=== PATIENT | female | born 1960 | race Native Hawaiian/Other Pacific Islander ===

== ENCOUNTER 2023-03-04 08:19 | Outpatient (CLI) | payer OTHER, SELFPAY ==
[2023-03-04 19:50] LABS: Chlamydia DNA Amplified* Not Detected (No Detected); GC DNA Amplified* Not Detected (No Detected)
== END 2023-03-04 08:20 | disposition home or self-care (01) ==
PROVIDERS: PCP Family Medicine; Visit Provider Family Medicine
DX: Z11.3 Encounter for screening for infections with a predominantly sexual mode of transmission (principal)
CPT/HCPCS: 80053; 80061; 82306; 86592; 86703; 86803; 87491; 87591

== ENCOUNTER 2023-05-16 13:54 | Outpatient (CLI) | payer OTHER, SELFPAY ==
--- NOTE | 2023-05-16 14:00 | CRLHL7_ITS ---
For Patients: As a result of the Century Cures Act, medical imaging exams and procedure reports are released immediately into your electronic medical record. You may view this report before your referring provider. If you have questions, please contact your health care provider. BILATERAL DIGITAL SCREENING MAMMOGRAM WITH TOMOSYNTHESIS AND COMPUTER-AIDED DETECTION CLINICAL HISTORY: Routine screening exam. COMPARISON: 02/08/2022, 12/20/2020, 10/01/2019. TECHNIQUE: Digital mammogram in CC and MLO projections including computer-aided detection (CAD). BREAST COMPOSITION: There are areas of scattered fibroglandular density. FINDINGS: RIGHT Breast: There is a nodular density within the posterior breast tissue laterally, possibly a normal lymph node. LEFT Breast: No suspicious findings. IMPRESSION: RIGHT breast asymmetry/mass. RECOMMENDATIONS: Additional mammographic views of the RIGHT breast including 3D XCCL and true lateral. RIGHT breast ultrasound may also be required. BI-RADS Category 0: Incomplete: Need Additional Imaging Evaluation and/or Prior Mammograms for Comparison The [facility] will contact the patient for follow-up. A lay language report of this examination will be provided to the patient. Dictated by Sander Hernandez MD @ 05/23/2023 2:03:46 PM yair/Dictated by: Sander Hernandez MD @ 05/23/2023 2:03:00 PM (Electronically Signed)
== END 2023-05-16 13:55 | disposition home or self-care (01) ==
LOC: MAMMO 13:55
PROVIDERS: PCP Family Medicine; Visit Provider Family Medicine
DX: Z12.31 Encounter for screening mammogram for malignant neoplasm of breast (principal)
CPT/HCPCS: 77063; 77067

== ENCOUNTER 2023-05-31 09:24 | Outpatient (CLI) | payer OTHER, SELFPAY ==
--- NOTE | 2023-05-31 09:45 | CRLHL7_ITS ---
For Patients: As a result of the Century Cures Act, medical imaging exams and procedure reports are released immediately into your electronic medical record. You may view this report before your referring provider. If you have questions, please contact your health care provider. DIGITAL DIAGNOSTIC RIGHT MAMMOGRAM USING TOMOSYNTHESIS AND COMPUTER-AIDED DETECTION RIGHT BREAST ULTRASOUND INDICATION: 62-year-old asymptomatic female. Asymmetric density outer RIGHT breast. Follow-up. TECHNIQUE: Unilateral diagnostic RIGHT breast mammogram. An exaggerated CC view laterally, as well as a true ML view was performed. Digital breast tomosynthesis utilized. COMPARISON: 05/16/2023, 02/08/2022. BREAST COMPOSITION: The breasts are almost entirely fatty. FINDINGS: Persistent asymmetry in the outer RIGHT breast between the 9 and 10 o`clock position. This may simply reflect asymmetric breast tissue. Ultrasound is recommended for further evaluation and will be performed subsequently. IMPRESSION: Persistent asymmetric density outer RIGHT breast. ULTRASOUND FINDINGS: Directed RIGHT breast ultrasound with this radiologist present. In the mid outer RIGHT breast 9 o`clock position 12 cm from the nipple is an area of mildly echogenic breast tissue without shadowing. No mass lesion. No architecture distortion. This should reflect the density identified on today`s mammogram and the most recent mammogram as well. Asymmetric breast tissue is most likely. These findings were discussed in detail with the patient. Annual mammography is recommended. BI-RADS Category 2: Benign A lay language report of this examination will be provided to the patient. Dictated by: Preet Hernández MD @05/31/2023 10:50:13 AM jj/Dictated by: Preet Hernández MD @ 05/31/2023 10:49:00 AM (Electronically Signed)
--- NOTE | 2023-05-31 10:15 | CRLHL7_ITS ---
For Patients: As a result of the Cures Act, medical imaging exams and procedure reports are released immediately into your electronic medical record. You may view this report before your referring provider. If you have questions, please contact your health care provider. PLEASE SEE DIGITAL DIAGNOSTIC RIGHT MAMMOGRAM PERFORMED SAME DAY CRL:yair [email or web address]/Dictated by: Preet Hernández MD @ 05/31/2023 10:50:00 AM (Electronically Signed)
== END 2023-05-31 09:25 | disposition home or self-care (01) ==
LOC: MAMMO 09:26
PROVIDERS: PCP Family Medicine; Visit Provider Family Medicine
DX: N63.10 Unspecified lump in the right breast, unspecified quadrant (principal); R92.8 Other abnormal and inconclusive findings on diagnostic imaging of breast
CPT/HCPCS: 76642; 77065; G0279

== ENCOUNTER 2024-03-10 09:43 | Outpatient (CLI) | payer OTHER, SELFPAY | END 2024-03-10 09:44 | disposition home or self-care (01) | PROVIDERS: PCP Family Medicine; Visit Provider Family Medicine | DX: R73.03 Prediabetes (principal); I10 Essential (primary) hypertension; E78.5 Hyperlipidemia, unspecified; Z13.21 Encounter for screening for nutritional disorder | CPT/HCPCS: 80053; 80061; 82043; 82570; 82607 ==

== ENCOUNTER 2024-06-10 10:02 | Outpatient (CLI) | payer OTHER, SELFPAY ==
--- NOTE | 2024-06-10 10:15 | CRLHL7_ITS ---
For Patients: As a result of the Century Cures Act, medical imaging exams and procedure reports are released immediately into your electronic medical record. You may view this report before your referring provider. If you have questions, please contact your health care provider. BILATERAL SCREENING MAMMOGRAM WITH COMPUTER-AIDED DETECTION AND TOMOSYNTHESIS TECHNIQUE: CC and MLO views were obtained. These mammographic images have been obtained using full-field digital technique. These mammographic images were interpreted with the benefit of computer-aided detection. Breast Tomosynthesis was used in this interpretation. COMPARISON FILM: 05/31/23, 05/16/23, 02/08/22. FINDINGS: There are scattered areas of fibroglandular density. IMPRESSION: There is no radiographic evidence for malignancy. ASSESSMENT: BI-RADS Category 1: Negative RECOMMENDATION: Routine screening mammogram in 1 year. A lay language report of this examination will be provided to the patient. Sander Hernandez M.D. Diagnostic Radiologist [email or web address] SP/Dictated by: Sander Hernandez MD @ 06/11/2024 11:21:00 AM (Electronically Signed)
== END 2024-06-10 10:03 | disposition home or self-care (01) ==
LOC: MAMMO 10:05
PROVIDERS: PCP Family Medicine; Visit Provider Family Medicine
DX: Z12.31 Encounter for screening mammogram for malignant neoplasm of breast (principal)
CPT/HCPCS: 77063; 77067

== ENCOUNTER 2025-01-16 10:23 | Emergency (ER) | payer BC, SELFPAY ==
--- OUTSIDE RECORDS SUMMARY | 2025-01-16 10:26 | XMS_ITS | Encounter Summary ---
Author Organization [facility] Address [address] [place] [address] Care Team Providers Care Environmental Health Aide Name Role Phone Germaine Pena MD Primary Care Provider Max Andrews MD Primary Care Provider [phone] Toney Escobar MD Primary Care Provider [phone] Tereza Centeno MD Primary Care Provider Unav [facility] Primary Care Provider + Naa Talavera MD Unavailable [phone] Naa Talavera MD Unavailable [phone] Tonya Acuña PA-C Unavailable [phone] Minerva Rico PA-C Unavailable [phone] Naa Talavera MD Unavailable [phone] Lucian Villegas MD Unavailable [phone] Rhianna Bravo MD Primary Care Provider [phone] System, Provider Not In Primary Care Provider Un available Myke Dolan MD Unavailable [phone] Encounter Details Date Type Department Care Team (Late Contact Info) Description 07/27/2006 [facility] Medical Advice [address] [phone] Germaine Pena MD [address] [place] [address] Social History Tobacco Use Types Packs/Day Years Used Date Smoking Tobacco: Never Alcohol Use Standard Drinks/Week Comments Yes 0 (1 standard drink = 0.6 oz pur e alcohol) occasionally Comments No Sex and Gender Information Value Date Recorded Sex Assigned at Female 09/09/2021 6:11 AM CDT Legal Sex Female 3:25 AM COMMISSIONS 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 Gender Identity Female 09/09/2021 6:11 AM CDT Sexual Orientation Straight 09/09/2021 6: 11 AM CDT Occupation Industry Job Start Date Job End Date home for now Not on file Not on file Not on file documented as of this encounter Plan of Treatment Upcoming Encounters Date Type Department Care Team (Late Contact Info) Description 01/21/2025 12:00 PM CDT Office Visit [address] [phone] Myke Dolan MD [address] [place] [address] documented as of this encounter Visit Diagnoses Not on filedocumented in this encounter Care Teams Environmental Health Aide Relationship Specialty Start Date End Date Germaine Pena MD PCP - General 11/18/03 10/22/12 Max Andrews MD [address] [place] [address] PCP - General Family Practice 10/23/12 02/25/13 [place] [address] [place] [address] PCP - General Family Practice 02/26/13 02/04/14 [place] [address] [place] [address] PCP - General Family Practice 02/05/14 09/25/17 [facility] PCP - General Family Practice 09/26/17 11/21/21 [place] [address] [place] [address] PCP - General Family Medicine 11/22/21 03/27/23 System, Provider Not In PCP - General Clinic 03/28/23 Naa Talavera MD [address] [place] [phone] Urology 02/23/20 Naa Talavera MD [address] [place] [address] [id number] Assigned Surgical Provider 09/02/20 01/24/21 Tonya Acuña PA-C [address] [place], [place] 767615 Assigned Surgical Provider 01/25/21 03/11/21 Minerva Rico PA-C [address] [address] Assigned OBGYN Provider 01/25/21 5 1 Naa Talavera MD [address] [place] [address] Assigned Surgical Provider 03/12/21 09/16/21 Lucian Villegas MD [address] [address] Assigned Surgical Provider 09/17/21 03/29/23 Myke Dolan MD [address] [place] [address] Assigned Surgical Provider 04/06/23 documented as of this encounter
--- OUTSIDE RECORDS SUMMARY | 2025-01-16 10:26 | XMS_ITS | Encounter Summary ---
Author Organization [facility] Address [address] [facility] [place] [address] Care Team Providers Care Food And Beverage Checker Name Role Phone Naa Talavera MD Unavailable [phone] System, Provider Not In Primary Care Provider Un available Myke Dolan MD Unavailable [phone] Encounter Details Date Type Department Care Team (Late st Contact Info) Description 04/03/2023 [facility] Medical Advice [address] [phone] Tonya Clemons, RN Social History Tobacco Use Types Packs/Day Years Used Date Smoking Tobacco: Never Smokeless Tobacco: Never Alcohol Use Standard Drinks/Week Comments Yes 0 (1 standard drink = 0.6 oz pur e alcohol) occasionally PHQ-2 Answer Date Recorded PHQ-2 Score 2 03/09/2021 Comments No Sex and Gender Information Value Date Recorded Sex Assigned at Female 09/09/2021 6:11 AM CDT 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 No / Unsure 03/28/2023 8:00 AM CDT documented as of this encounter Plan of Treatment Upcoming Encounters Date Type Department Care Team (Late st Contact Info) Description 01/21/2025 12:00 PM CDT Office Visit [facility] [address] [place] [phone] [place] [address] [place] [address] [phone] documented as of this encounter Visit Diagnoses Not on filedocumented in this encounter Additional Health Concerns Assessment Noted Time PHQ-9 Depression Total Score: 5 03/09/20 21 8:22 AM CDT documented as of this encounter Care Teams Food And Beverage Checker Relationship Specialty Start Date End Date System, Provider Not In PCP - General Clinic 03/28/23 Naa Talavera MD [address] [place] [address] [address] [place] [address] Urology 02/23/20 [place] [address] [place] [address] Assigned Surgical Provider 04/06/23 documented as of this encounter
--- OUTSIDE RECORDS SUMMARY | 2025-01-16 10:26 | XMS_ITS | Clinical Summary ---
Author Organization [facility] Address [address] [place] [address] Care Team Providers Care Electronic News Gathering Camera Person Name Role Phone Tereza Centeno MD Primary Care Provider [phone] Source Comments You are receiving this document as you are listed as the primary care provider,follow-up provider, or the patient has been referred to you for consultation.This is in compliance with the Medicare and[facility] Hospital[facility] EHR Incentive Program,which states Providers who transition their patient to another setting of careor provider of care or refers their patient to another provider of care shouldprovide summary care record for each transition of care or referral. [employer] Allergies Active Allergy Reactions Criticality Noted Date Comments Dog Epithelium (Canis Lupus Familiaris) Other, see comments 12/30/2020 Molds & Smuts Other, see comments 12/13/2003 Other Other, see comments, Runny Nose 12/13/2003 Medications Notus-3 Fatty Acids 1200 MG 2 Caps two times a day. Active Cetirizine HCl (ZYRTEC) 10 MG CAPS daily as needed. Active cholecalciferol (VITAMIN D) 1000 UNITS capsule Take 1,000 Units by mouth daily. Active losartan/hydroc hlorothiazide (HYZAAR) 100-25 MG tablet Take 1 Tablet by mouth daily. Active metFORMIN (GLUCOPHAGE) 500 MG tablet Take 1 Tablet (500 mg) by mouth daily. 06/01/2023 Active RYBELSUS 3 MG tablet Take 1 Tablet by mouth daily. 05/29/2023 Active scopolamine (TRANSDERM-SCOP ) 1.0mg/3 days patch 1 Patch every 72 hours. 06/03/2023 Active traZODone (DESYREL) 100 MG tablet Take 1 Tablet (100 mg) by mouth once as needed. 02/08/2023 Active cetirizine (ZYRTEC) 10 MG tablet Take 1 Tablet (10 mg) by mouth. Active amLODIPine (NORVASC) 5 MG tablet Take 1 Tablet (5 mg) by mouth daily. 05/16/2024 Active atorvastatin (LIPITOR) 10 MG tablet Take 1 Tablet (10 mg) by mouth daily at bedtime. 06/08/2024 Active gabapentin (NEURONTIN) 100 MG capsule Take 1-3 Capsules (100-300 mg) by mouth at bedtime as needed. 06/09/2024 Active nortriptyline (PAMELOR) 25 MG capsule Take 1 Capsule (25 mg) by mouth daily at bedtime. 06/09/2024 Active atovaquone-prog uanil (MALARONE) 250-100 MG tabletIndicatio ns:Encounter for counseling for travel Take 1 tab by mouth daily. Start 2 days before malarial mosquito exposure in [place], daily while there and continue for 7 days after leaving. Start Malarone on 08-10-2024. 30 Tablet 08/05/2024 Active Active Problems Problem Noted Date Diagnosed Date HTN (hypertension) 02/01/2014 Depression 02/01/2014 Immunizations Immunization Administration Dates Next Due Adult RSV Abrysvo 08/31/2023 DTaP 06/05/2017,06/25/2012 Flu Vac (3+ yrs) 09/21/2013, 2,09/04/2011,2009,08/27/2007,09/02/2006 HepA Adult (19+ yrs) 02/01/2014,06/01/2002 HepA, Unspecified Formulation 06/01/2002 Hepatitis B - Surface Antibo dy Positive 06/24/2001 IPV (Polio) 07/28/2024,06/04/2023,06/01/2002 Influenza (Turin Only) (Flul aval Quad 0.5, 3+ yrs) 08/25/2020,09/04/2019,08/12/2017,2014,08/27/2014 Influenza (Flucelvax), Prese rv Free QIV 08/31/2023 Influenza (Fluzone 0.25, 6-35 mos) 08/14/2018 Influenza [id number] 10/20/2009 Influenza IIV4 (Quadrivalent ) 0.5mL (48386) 09/17/2022,08/21/2021,09/21/2013 Influenza ccIIV3 6 months+ (Flucelvax) 07/28/2024 Influenza, Unspecified Formulation 09/04,08/12/2017,08/29/2015,2013,09/21/2013,08/26/2012,09/04/2011 MCV4 Menveo 2m.+ (two vial) 06/04/2023 MMR 06/04/2023 Moderna Monovalent 12+ 10/18/2021,02/16/2021,09/2021 Pfizer Bivalent 12+ 09/17/2022 Pfizer COVID-19 12+ 08/31/2023 Polio, Unspecified Formulation 06/01/2002 Td 02/11/2002 Tdap 06/04/2023,06/05/2017,06/25/2012 Typhoid (Typhim Vi, IM) 06/04/2023,06/01/2002 YF (Yellow Fever) 06/01/2002 Zoster RZV (Shingrix) 08/21/2021,12/08/2020 Family History Medical History Relation Name Comments Hypertension Brother 4 Relation Name Status Comments Father Mother Alive Brother 1 Alive Brother 2 Alive Brother 3 Alive Brother 4 Daughter 1 Alive Daughter 2 Alive Maternal Grandfather Maternal Grandmother Other Alive spouse Paternal Grandfather Paternal Grandmother Son Alive Social History Tobacco Use Types Packs/Day Years Used Date Smoking Tobacco: Never Smokeless Tobacco: Never Alcohol Use Standard Drinks/Week Comments Not Asked 0 (1 standard drink = 0.6 oz pur e alcohol) Comments No Sex and Gender Information Value Date Recorded Sex Assigned at Not on file Legal Sex Female 6:12 AM CDT Gender Identity Not on file Sexual Orientation Not on file Occupation Industry Job Start Date Job End Date [place] Not on file Not on file Not on file Last Filed Vital Signs Vital Sign Reading Time Taken Comments Blood Pressure 127/88 12/06/2014 8:44 AM INFECTION CONTROL MANAGER Pulse 71 12/06/2014 8:44 AM INFECTION CONTROL MANAGER Temperature 35.9 C (96.6 F) 12/06/2014 8:44 AM INFECTION CONTROL MANAGER Respiratory Rate 16 02/01/2014 9:40 AM CDT Oxygen Saturation - - Inhaled Oxygen Concentration - - Weight 97.1 kg (214 lb) 12/06/2014 8:44 AM INFECTION CONTROL MANAGER Height 164.1 cm (5' 4.6) 12/06/2014 8:44 AM INFECTION CONTROL MANAGER Body Mass Index 36.05 12/06/2014 8:44 AM INFECTION CONTROL MANAGER Plan of Treatment Health Maintenance Due Date Last Done Comments Colon Cancer Screening Plan Due 1962 Hep C Screening (Preventive Services) 1962 Hep B Screening ([employer] Wizard) 1963 HIV Screening (Preventive Services) 1978 Pneumococcal 50+ Yrs (1 of 1 - PCV) 2012 Adult Preventive Visit 12/06/2015 12/06/2014 Cervical Cancer Screening 04/05/2019 04/05/2016 Cholesterol 12/06/2019 12/06/2014 Mammogram 02/08/2023 02/08/2022, 01/11, 12/18/2014, Additional history exists MCV4 (2 - Risk start 2-23 months series) 08/27/2023 06/04/2023 COVID-19 Vaccine ( - 2023- season) 2024 08/31/2023, 09/17/2022, 10/18/2021, Additional history exists DTaP/Tdap/Td (6 - Tdap) 06/04/2033 06/04/20 23, 06/05/2017, 06/05/2017, Additional history exists HepA Completed 02/01/2014, 05/12, 06/01/2002 Zoster/Shingles Completed 08/21/2021, 12/08/2020 RSV Completed 08/31/2023 IPV (Polio) Aged Out 07/28/2024, 05/12, 06/01/2002, Additional history exists No longer eligible based on patient's age to complete this topic Influenza Completed 07/28/2024, 08/12, 09/17/2022, Additional history exists Hib Aged Out No longer eligi ble based on patient's age to complete this topic Meningococcal B Aged Out No longer el igible based on patient's age to complete this topic Pneumococcal Aged Out No longer eligi ble based on patient's age to complete this topic Procedures Procedure Name Priority Date/Time Associated Diagnosis Comments MM MAMMOGRAM SCREENING BILAT W CAD Routine 12/07/2014 9:21 AM INFECTION CONTROL MANAGER LIPID PANEL & DIRECT LDL (IF NEEDED) Routine 12/06/2014 9:03 AM INFECTION CONTROL MANAGER Screening cholesterol level from Last 3 Months or Most Recently Relevant to Health Maintenance Results * MAMMOGRAM SCREENING BILATERAL (12/07/2014 9:21 AM INFECTION CONTROL MANAGER) Anatomical Region Laterality Modality Breast Bilateral Mammography 12/07/2014 9:21 AM INFECTION CONTROL MANAGER Narrative 12/08/2014 2:18 PM INFECTION CONTROL MANAGER MAMMOGRAM SCREENING W/CAD BILAT: 12/07/2014 9:21 AM COMPARISON: 09/24/2013, 09/11/2012 FINDINGS: Bilateral full-field digital screening mammograms performed. The breast tissue is heterogeneously dense, which may lower the sensitivity of mammography There are bilateral reduction mammoplasties. There has been development of a small asymmetry in the outer portion of the right breast. Spot compression view in the craniocaudal projection and a mediolateral view are recommended. The remainder of the breast tissue is unremarkable. Images evaluated with the assistance of CAD. IMPRESSION: ACR BI-RADS Category 0: Incomplete: Need Additional Imaging Evaluation. We will contact this patient directly to arrange for follow-up. Procedure Note Jaun Ashby MD - 12/08/2014 MAMMOGRAM SCREENING W/CAD BILAT: 12/07/2014 9:21 AM COMPARISON: 09/24/2013, 09/11/2012 FINDINGS: Bilateral full-field digital screening mammograms performed. The breast tissue is heterogeneously dense, which may lower the sensitivity of mammography There are bilateral reduction mammoplasties. There has been development of a small asymmetry in the outer portion of the right breast. Spot compression view in the craniocaudal projection and a mediolateral view are recommended. The remainder of the breast tissue is unremarkable. Images evaluated with the assistance of CAD. IMPRESSION: ACR BI-RADS Category 0: Incomplete: Need Additional Imaging Evaluation. We will contact this patient directly to arrange for follow-up. us Tereza Centeno MD RAD MANDI Final Resul t * (ABNORMAL) LIPID PANEL AND DIRECT LDL(IF NEEDED) (12/06/2014 9:03 AM INFECTION CONTROL MANAGER) Hours Fasting 12 hours [facility] Cholesterol 212(H) 0 - 199 mg/dl [facility] Triglyceride 100 0 - 149 mg/dl [facility] HDL 66 >40 mg/dl [facility] LDL, Calc. 126 0 - 129 mg/dl [facility] Non HDL Chol, Calc 146 mg/dl [facility] 12/06/2014 9:03 AM INFECTION CONTROL MANAGER 12/06/2014 9:04 AM INFECTION CONTROL MANAGER Narrative [facility] - 12/06/2014 5:32 PM INFECTION CONTROL MANAGER Performed at [facility], [address] [place] [address] us Tereza Centeno MD LAB_1 Final Resul t [facility] [phone] from Last 3 Months or Most Recently Relevant to Health Maintenance Insurance MEDICA CHOICE Care Teams Electronic News Gathering Camera Person Relationship Specialty Start [place] [address] [place] [address] PCP - General Family Practice 01/27/14
--- OUTSIDE RECORDS SUMMARY | 2025-01-16 10:26 | XMS_ITS | Encounter Summary ---
Author Organization [facility] Address [address] [facility] [place] [address] Care Team Providers Care Floor Clerk Name Role Phone Naa Talavera MD Unavailable [phone] System, Provider Not In Primary Care Provider Un available Myke Dolan MD Unavailable [phone] Encounter Details Date Type Department Care Team (Late st Contact Info) Description 11/20/2023 [facility] Medical Advice [address] [phone] Tonya Clemons, RN Social History Tobacco Use Types Packs/Day Years Used Date Smoking Tobacco: Never Smokeless Tobacco: Never Alcohol Use Standard Drinks/Week Comments Yes 0 (1 standard drink = 0.6 oz pur e alcohol) occasionally PHQ-2 Answer Date Recorded PHQ-2 Score 2 03/09/2021 Adolescent Education Answer Date Record ed Getting School Help Needed Not on file 08/04 Comments No Sex and Gender Information Value Date Recorded Sex Assigned at Female 09/09/2021 6:11 AM CDT Legal Sex Female 3:25 AM CLAIM TAKER Gender Identity Female 09/09/2021 6:11 AM CDT Sexual Orientation Straight 09/09/2021 6: 11 AM CDT Occupation Industry Job Start Date Job End Date home for now Not on file Not on file Not on file documented as of this encounter Plan of Treatment Upcoming Encounters Date Type Department Care Team (Late st Contact Info) Description 01/21/2025 12:00 PM CDT Office Visit [facility] [address] [place] [phone] Myke Dolan MD [address] [place] [address] documented as of this encounter Visit Diagnoses Not on filedocumented in this encounter Additional Health Concerns Assessment Noted Time PHQ-9 Depression Total Score: 5 03/09/20 21 8:22 AM CDT documented as of this encounter Care Teams Floor Clerk Relationship Specialty Start Date End Date System, Provider Not In PCP - General Clinic 03/28/23 Naa Talavera MD [address] [place] [address] [address] [place] [address] Urology 02/23/20 Myke Dolan MD [address] [place] [address] Assigned Surgical Provider 04/06/23 documented as of this encounter
--- OUTSIDE RECORDS SUMMARY | 2025-01-16 10:26 | XMS_ITS | Encounter Summary ---
Author Organization [place] Address [address] [place] [address] Care Team Providers Care Soft Metals Hand Engraver Name Role Phone Germaine Pena MD Primary Care Provider Max Andrews MD Primary Care Provider [phone] Toney Escobar MD Primary Care Provider [phone] Tereza Centeno MD Primary Care Provider Unav [facility] Primary Care Provider + Naa Talavera MD Unavailable [phone] Naa Talavera MD Unavailable [phone] Tonya Acuña PA-C Unavailable [phone] Minerva Rico PA-C Unavailable [phone] Naa Talavera MD Unavailable [phone] Lucian Villegas MD Unavailable [phone] Rhianna Bravo MD Primary Care Provider [phone] System, Provider Not In Primary Care Provider Un available Myke Dolan MD Unavailable [phone] Encounter Details Date Type Department Care Team (Late Contact Info) Description 09/04/2012 MyC Medical Advice [facility] [address] [place] [phone] Irene Pedroza Social History Tobacco Use Types Packs/Day Years Used Date Smoking Tobacco: Never Smokeless Tobacco: Never Alcohol Use Standard Drinks/Week Comments Yes 0 (1 standard drink = 0.6 oz pur e alcohol) occasionally Comments No Sex and Gender Information Value Date Recorded Sex Assigned at Female 09/09/2021 6:11 AM CDT Legal Sex Female 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 Gender Identity Female 09/09/2021 6:11 AM CDT Sexual Orientation Straight 09/09/2021 6: 11 AM CDT Occupation Industry Job Start Date Job End Date home for now Not on file Not on file Not on file documented as of this encounter Plan of Treatment Upcoming Encounters Date Type Department Care Team (Late Contact Info) Description 01/21/2025 12:00 PM CDT Office Visit [address] [phone] Myke Dolan MD [address] [place] [address] documented as of this encounter Visit Diagnoses Not on filedocumented in this encounter Care Teams Soft Metals Hand Engraver Relationship Specialty Start Date End Date Germaine Pena MD PCP - General 11/18/03 10/22/12 Max Andrews MD [address] [place] [address] PCP - General Family Practice 10/23/12 02/25/13 [place] [address] [place] [address] PCP - General Family Practice 02/26/13 02/04/14 [place] [address] [place] [address] PCP - General Family Practice 02/05/14 09/25/17 [facility] PCP - General Family Practice 09/26/17 11/21/21 [place] [address] [place] [address] PCP - General Family Medicine 11/22/21 03/27/23 System, Provider Not In PCP - General Clinic 03/28/23 Naa Talavera MD [address] [place] [address] Urology 02/23/20 Naa Talavera MD [address] [place] [address] Assigned Surgical Provider 09/02/20 01/24/21 Tonya Acuña PA-C [address] [place] [address] Assigned Surgical Provider 01/25/21 03/11/21 Minerva Rico PA-C [address] [address] Assigned OBGYN Provider 01/25/21 Naa Talavera MD [address] [place] [address] Assigned Surgical Provider 03/12/21 09/16/21 Lucian Villegas MD [address] [facility] [address] [place] [address] Assigned Surgical Provider 09/17/21 03/29/23 Myke Dolan MD [address] [place], [place] [address] Assigned Surgical Provider 04/06/23 documented as of this encounter
--- OUTSIDE RECORDS SUMMARY | 2025-01-16 10:26 | XMS_ITS | Encounter Summary ---
Author Organization [place] Address [address] [place] [address] Care Team Providers Care Staff Development Coordinator Name Role Phone Max Andrews MD Primary Care Provider [phone] Toney Escobar MD Primary Care Provider [phone] Tereza Centeno MD Primary Care Provider [facility] Primary Care Provider + Naa Talavera MD Unavailable [phone] Naa Talavera MD Unavailable [phone] Tonya Acuña PA-C Unavailable [phone] Minerva Rico PA-C Unavailable [phone] Naa Talavera MD Unavailable [phone] Lucian Villegas MD Unavailable [phone] Rhianna Bravo MD Primary Care Provider System, Provider Not In Primary Care Provider Un available Myke Dolan MD Unavailable +[phone] Reason for Visit * Reason Onset Date Comments Health Maintenance 01/30/2013 colonoscopy s cheduled Encounter Details Date Type Department Care Team (Late st Contact Info) Description 01/30/2013 Telephone M [address] [phone] Max Andrews MD [address] [place] [address] Health Maintenance (colonoscopy scheduled) Social History Tobacco Use Types Packs/Day Years Used Date Smoking Tobacco: Never Smokeless Tobacco: Never Alcohol Use Standard Drinks/Week Comments Yes 0 (1 standard drink = 0.6 oz pur e alcohol) occasionally Comments No Sex and Gender Information Value Date Recorded Sex Assigned at Female 09/09/2021 6:11 AM CDT 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 [place] [address] Please contact patient to discuss prep and additional instructions. Best phone number to use: [phone] Best time to contact the patient: Anytime during the day Thank you. documented in this encounter Plan of Treatment Upcoming Encounters Date Type Department Care Team (Late Contact Info) Description 01/21/2025 12:00 PM CDT Office Visit [address] [phone] Myke Dolan MD [address] [place] [address] documented as of this encounter Visit Diagnoses Not on filedocumented in this encounter Care Teams Staff Development Coordinator Relationship Specialty Start Date End Date Max Andrews MD [address] [place] [address] PCP - General Family Practice 10/23/12 02/25/13 [place] [address] [place] [address] PCP - General Family Practice 02/26/13 02/04/14 [place] [address] [place] [address] PCP - General Family Practice 02/05/14 09/25/17 [facility] PCP - General Family Practice 09/26/17 11/21/21 [place] [address] [place] [address] PCP - General Family Medicine 11/22/21 03/27/23 System, Provider Not In PCP - General Clinic 03/28/23 Naa Talavera MD [address] [place] [address] Urology 02/23/20 Naa Talavera MD [address] [place] [address] Assigned Surgical Provider 09/02/20 01/24/21 Tonya Acuña PA-C [address] [place] [address] Assigned Surgical Provider 01/25/21 03/11/21 Minerva Rico PA-C [address] [facility] [address] [place] [address] Assigned OBGYN Provider 01/25/21 1 Naa Talavera MD [address] [facility] [address] [place], [place] [address] Assigned Surgical Provider 03/12/21 09/16/21 Lucian Villegas MD [address] [facility] 300 [place], [place] [address] Assigned Surgical Provider 09/17/21 03/29/23 Myke Dolan MD [address] [place], [place] [address] Assigned Surgical Provider 04/06/23 documented as of this encounter
--- OUTSIDE RECORDS SUMMARY | 2025-01-16 10:26 | XMS_ITS | Clinical Summary ---
Author Organization [facility] Address [address] [place] [address] Care Team Providers Care Recreation Engineer Name Role Phone Rhianna Bravo MD Primary Care Provider [phone] Allergies Active Allergy Reactions Criticality Noted Date Comments Cat Dander *Unknown 12/30/2020 Dog Dander *Unknown 12/30/2020 Dust Mites Runny Nose 12/13/2003 Mold *Unknown 12/30/2020 Pollen Extracts *Unknown 12/30/2020 Medications cholecalciferol (VITAMIN D) 1,000 unit tablet Take 1 tablet by mouth once daily. 0 3 Active multivitamin (MVI) tablet Take 1 tablet by mouth once daily. 0 3 Active Phentermine HCl 37.5 mg capsuleIndicatio ns:Morbid exogenous obesity (HC) Take 1 Capsule (37.5 mg) by mouth once daily. 30 Capsule 1 01/16/2022 7:32 PM SUPERVISOR SCRAP PREPARATION 2 Active Additional Information Patient not taking.Reported on 07/04/2023 bacitracin-polym yxin b (POLYSPORIN) ophthalmic ointmentIndicati ons:Red eye Apply 1 Strip to both eyes three times daily. 3.5 g 3 Active Additional Information Patient not taking.Reported on 07/04/2023 ketorolac 0.5 % ophthalmic (ACULAR) solutionIndicati ons:Red eye Place 1 Drop into both eyes four times daily. 3 mL 3 Active Additional Information Patient not taking.Reported on 07/04/2023 amLODIPine (NORVASC) 5 mg tabletIndication s:Essential (primary) hypertension Take 1 Tablet (5 mg) by mouth once daily. 90 Tablet 02/11/2023 2:47 PM CDT 3 Active losartan-hydroch lorothiazide (HYZAAR) 100-25 mg tabletIndication s:Essential (primary) hypertension Take 1 Tablet by mouth once daily. 30 Tablet 02/11/2023 2:47 PM CDT 3 Active traZODone (DESYREL) 100 mg tabletIndication s:Insomnia, idiopathic Take 1 Tablet (100 mg) by mouth at bedtime if needed for Sleep. 90 Tablet 02/11/2023 2:47 PM CDT 3 Active albuterol HFA (PRO-AIR; VENTOLIN; PROVENTIL) 90 mcg/actuation inhalerIndicatio ns:Acute cough Inhale 1-2 Puffs by mouth every 4 hours if needed (cough). 1 Each 3 Active Active Problems Problem Noted Date Diagnosed Date Pap smear for cervical cancer screening 01/10/20 Overview (03/02/2022): 01/2022 NIL/HPV negative. Plan: Pap/HPV due 01/2027 Essential hypertension 12/30/2020 Major depressive disorder, recurrent, moderate 0 12/30/2020 RAVINDER (obstructive sleep apnea) 12/30/2020 History of suburethral sling procedure 9 Morbid obesity 09/18/2019 Body mass index (BMI) 35.0-35.9, adult 9 Low back pain 09/20/2017 Dizziness and giddiness 08/03/2016 Major depression in partial remission 05/16/2009 Leiomyoma of uterus 05/09/2007 Overview (01/02/2021): Problem list name updated by automated process. Provider to review Encounters Date Type Department Care Team Description 11/05/2024 Travel from Last 3 Months Immunizations Immunization Administration Dates Next Due COVID-19 vaccine ([employer]thro[employer] 30mcg/0.3mL) 12YO+ BIVALENT PF, MDV 09/17/2022 Hepatitis A (Adult) 02/01/2014,06/01/2002 Inactivated Polio Vaccine 06/01/2002 Influenza A (H1N1), Inactiva jamal (Age >=3 Years) 10/20/2009 Influenza Virus, Unspecified 09/04/2019, 08/12/2017,08/29/2015,2013,08/20/2014,09/21/2013 Influenza, IIV3 (Age >=3 years) 08/26/20 12,09/04/2011,09/21/2010,2006,09/02/2006 Influenza, IIV4 09/17/2022,08/21/2021,09/21/2013 Influenza, IIV4 (=>6mos) MDV 08/25/2020, 09/04/2019,08/12/2017,2014,08/27/2014 Influenza, IIV4 (Age 6-35 Mos) 08/14/2018 Td, Preservative Free (age > = 7 Years) 02/11/2002 Tdap 06/05/2017,06/26/2012 Tdap, Unspecified 06/05/2017,06/25/2012 Tuberculin Skin Test, Unspecified 04/29/2006 Typhoid (injectable) 06/01/2002 Yellow Fever 06/01/2002 Zoster (Shingrix-RZV, recombinant) 08/21/2021, Family History Medical History Relation Name Comments Good Health Mother Cancer-breast Other Mat Cousin Relation Name Status Comments Father Mother Other Mat Cousin Alive Social History Tobacco Use Types Packs/Day Years Used Date Smoking Tobacco: Never Smokeless Tobacco: Never Alcohol Use Standard Drinks/Week Comments Yes 0 (1 standard drink = 0.6 oz pur e alcohol) occasionally PHQ-2 Answer Date Recorded PHQ-2 TOTAL SCORE 0 01/24/2022 Social Connections Answer Date Recorded Frequency of Communication with Friends and Fami ly 0 07/04/2023 Financial Resource Strain Answer Date R ecorded Difficulty of Paying Living Expenses 3 07/04/2023 Difficulty of Paying Living Expenses Not on file 07/04/2023 Food Insecurity Answer Date Recorded Worried About Running Out of Food in the Last Ye ar 1 07/04/2023 Transportation Needs Answer Date Record ed Lack of Transportation (Medical) 1 07/04/2023 Housing Stability Answer Date Recorded Unable to Pay for Housing in the Last Year 1 07/04/2023 Comments No Sex and Gender Information Value Date Recorded Sex Assigned at Not on file Legal Sex Female 6:06 AM SUPERVISOR SCRAP 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 Gender Identity Not on file Sexual Orientation Not on file Obstetrics History Last Filed Vital Signs Vital Sign Reading Time Taken Comments Blood Pressure 173/83 07/04/2023 9:30 AM CDT Pulse 80 07/04/2023 9:30 AM CDT Temperature 36.5 C (97.7 F) 07/04/2023 9:30 AM CDT Respiratory Rate 20 07/04/2023 9:30 AM CDT Oxygen Saturation 96% 07/04/2023 9:30 AM CDT Inhaled Oxygen Concentration - - Weight 93.9 kg (207 lb) 07/04/2023 9:30 AM CDT Height 162.6 cm (5' 4) 07/04/2023 9:30 AM CDT Body Mass Index 35.53 07/04/2023 9:30 AM CDT Plan of Treatment Upcoming Encounters Date Type Department Care Team (Late st Contact Info) Description 02/22/2025 12:00 PM CDT Office Visit [facility] [address] [place] [phone] [place] [address] [place], [place] [phone] Health Maintenance Due Date Last Done Comments HIV for age 15-65 1977 Pneumococcal series for age 50+ (1 of 1 - PCV) 2012 RSV vaccine for adults or (1 - Risk 60-74 years 1-dose series) 2022 Depression screening for age 12+ 01/24/2023 01/25/20, 11/29/2021 Mammogram for age 45-75 02/08/2023 02/09/20, 12/20/2020, 10/01/2019, Additional history exists BMI (ht and wt on same day) for age 18+ 07/04/2024 07/04/2023, 02/03/2023, 01/24/2022, Additional history exists (IA) Influenza for age 50-64 07/12/202405/2022, 08/21/2021, 08/25/2020, Additional history exists COVID-19 vaccine series ( season) 2024 08/31/2023, 09/17/2022, 10/18/2021, Additional history exists Lipids for age 45-75 01/24/2027 01/24/2022, 06/15/20 21 Pap test for age 21-65 01/24/2027 01/24/2022, 2021 Tetanus booster 06/05/2027 06/05/2017, 05/12, 06/26/2012, Additional history exists Colonoscopy through age 75 06/09/2028 06/09/2018 Tdap Completed 06/05/2017, 05/12, 06/26/2012, Additional history exists Zoster (shingles) series for age 50+ Completed 08/21/2021, 12/08/2020 Hepatitis C screening for ag e 18-79 Completed 01/24/2022 Procedures Procedure Name Priority Date/Time Associated Diagnosis Comments XR MAMMO ANA BILAT SCREEN Routine 02/08/2022 2:42 PM CDT Visit for screening mammogram ANTI HCV Routine 01/24/2022 10:50 AM CDT Need for hepatitis C screening test LIPID PANEL W REFLEX MEASURED LDL Routine 01/24/2022 10:50 AM CDT Routine general medical examination at a health care facility HPV HIGH RISK Routine 01/24/2022 10:00 AM CDT Screening for cervical cancer SCAN-COLONOSCOPY 06/09/2018 12:0 0 AM CDT from Last 3 Months or Most Recently Relevant to Health Maintenance Results * XR MAMMO ANA BILAT SCREEN (02/08/2022 2:42 PM CDT) Anatomical Region Laterality Modality BREASTS, Breast Left, Breast Right Bilateral Mammography Impressions 02/09/2022 3:59 PM CDT There is no radiographic evidence for malignancy. Recommend annual mammograms. MAMMOGRAM ASSESSMENT: ACR 2 Benign PATIENTS: You will also receive a letter with your examination results in an easy to read format. If you have questions about your results, please contact your referring provider. Narrative 02/09/2022 3:59 PM CDT For Patients: As a result of the Century Cures Act, medical imaging exams and procedure reports are released immediately into your electronic medical record. You may view this report before your referring provider. If you have questions, please contact your health care provider. XR MAMMO ANA BILAT SCREEN [[id number]] CLINICAL HISTORY: This is an asymptomatic 61 y.o. patient. INDICATION FOR EXAM: Mammogram Screening. TECHNIQUE: CC & MLO views were obtained. This study was evaluated with the assistance of Computer-Aided Detection. Breast Tomosynthesis was used in interpretation. COMPARISON FILMS: Yes 12/20/20 10/01/19 FINDINGS: The breasts have scattered areas of fibroglandular density. No suspicious masses or microcalcifications. Postoperative changes of bilateral reduction mammoplasty. . Rhianna Bravo MD MAMMO Final Resu lt * (ABNORMAL) LIPID PANEL W REFLEX MEASURED LDL (01/24/2022 10:50 AM CDT) CHOLESTEROL,TOTAL 210(H) 100 - 199 mg/dL 01/24/2022 4:27 PM CDT [facility] TRIGLYCERIDES 65 <150 mg/dL 01/24/2022 4:27 PM CDT [facility] HDL CHOLESTEROL 81 >40 mg/dL 4:27 PM CDT [facility] NON-HDL CHOLESTEROL 129 <145 mg/dl 01/24/2022 4:27 PM CDT [facility] CHOL/HDL RATIO 2.59 <4.50 01/24/2022 4:27 PM CDT [facility] LDL CHOLESTEROL 116 <=130 mg/dL 01/24/2022 4:27 PM CDT [facility] VLDL CHOLESTEROL 13 <=30 mg/dL 01/24/2022 4:27 PM CDT [facility] PROVIDER ORDERED STATUS RANDOM 01/24/2022 4:27 PM CDT [facility] Blood BLOOD SPECIMEN / Unknown Venipuncture / Unknown 01/24/2022 10:50 AM CDT 01/24/2022 10:50 AM CDT Rhianna Bravo MD CHEMISTRY Final Resu lt Performing Organization Address City/[facility]/ZIP Co de Phone Number [facility] [address] [place] [address], [place] * ANTI HCV (01/24/2022 10:50 AM CDT) HEPATITIS C ANTIBODY Non-React mera Non-React mera 01/24/2022 11:01 PM CDT [facility] Comment:Antibodies to HCV no t detected; does not exclude the possibility of exposure to HCV. Blood BLOOD SPECIMEN / Unknown Venipuncture / Unknown 01/24/2022 10:50 AM CDT 01/24/2022 10:50 AM CDT Rhianna Bravo MD SEND OUTS Final Resu lt Performing Organization Address City/[facility]/ZIP Co de Phone Number [facility] [address] [place] [address], [place] * HPV HIGH RISK (01/24/2022 10:00 AM CDT) TYPE 16 Negative Negative 01/30/2022 5:03 AM CDT [facility] TYPE 18 Negative Negative 01/30/2022 5:03 AM CDT [facility] OTHER HIGH RISK TYPES Negative Negative 01/30/2022 5:03 AM CDT [facility] Other (Cervical) Non-Blood / Unknown 01/24/2022 10:00 AM CDT 01/26/2022 8:22 AM CDT Narrative [facility] - 01/30/2022 5:03 AM CDT HPV types 16, 18, 31, 33, 35, 39, 45, 51, 52, 56, 58, 59, 66 and 68 DNA were undetectable or below the pre-set threshold. Methodology: Bam Thu 4800 HPV Test us Rhianna Bravo MD MICROBIOLOGY Final Resu lt [facility] [address] [place] [address], [place] * SCAN-COLONOSCOPY (06/09/2018 12:00 AM CDT) us Scanner OTHER Final Result from Last 3 Months or Most Recently Relevant to Health Maintenance [place] [address] Care Teams Recreation Engineer Relationship Specialty [place] [address] [place] [address] PCP - General Family Practice 01/23/22
--- OUTSIDE RECORDS SUMMARY | 2025-01-16 10:26 | XMS_ITS | Encounter Summary ---
Author Organization [place] Address [address] [facility] [place] [address] Care Team Providers Care Computer Builder Name Role Phone [facility] Primary Care Provider + Naa Talavera MD Unavailable [phone] Tonya Acuña PA-C Unavailable [phone] Minerva Rico PA-C Unavailable [phone] Naa Talavera MD Unavailable Lucian Villegas MD Unavailable Rhianna Bravo MD Primary Care Provider [phone] System, Provider Not In Primary Care Provider Un available Myke Dolan MD Unavailable Reason for Visit * Reason Onset Date Comments Call Back 03/02/2021 11:00 telephone visit today Encounter Details Date Type Department Care Team (Late st Contact Info) Description 03/02/2021 Telephone [facility] [address], [address] [place] [address] Naa Talavera MD [address] [facility] [address] [place] [address] Call Back (11:00 telephone visit today) Social History Tobacco Use Types Packs/Day Years Used Date Smoking Tobacco: Never Smokeless Tobacco: Never Alcohol Use Standard Drinks/Week Comments Yes 0 (1 standard drink = 0.6 oz pur e alcohol) occasionally PHQ-2 Answer Date Recorded PHQ-2 Score 0 09/18/2019 Comments No Sex and Gender Information Value Date Recorded Sex Assigned at Female 09/09/2021 6:11 AM CDT Legal Sex Female 3:25 AM 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 * Telephone Encounter - Karel Mcknight - 03/02/2021 3:00 PM CDT [facility] Phone Message May a detailed message be left on voicemail: yes Reason for Call: Other: Pt calling because she is waiting on a call back for her 11:00 am telephonevisit. She reports that she spoke with a nurse to check in for the appt, and was running late and pt had a meeting, but she is free now and is wondering if she could do her telephone visit today. Please call back to discuss. Action Taken: Message routed to: [facility] uro Travel Screening: Not Applicable documented in this encounter Plan of Treatment Upcoming Encounters Date Type Department Care Team ([facility] Contact Info) Description 01/21/2025 12:00 PM CDT Office Visit [place] [id number] [facility] [place] [phone] Myke Dolan MD [address] [place], [place] [address] documented as of this encounter Visit Diagnoses Not on filedocumented in this encounter Care Teams Computer Builder Relationship Specialty Start Date End Date [facility] PCP - General Family Practice 09/26/17 11/21/21 [place] [address] [place], [place] [phone] PCP - General Family Medicine 11/22/21 03/27/23 System, Provider Not In PCP - General Clinic 03/28/23 Naa Talavera MD [address] [place] [address] Urology 02/23/20 Tonya Acuña PA-C [address] [place] [address]85575 Assigned Surgical Provider 01/25/21 03/11/21 Minerva Rico PA-C [address] [address] Assigned OBGYN Provider 01/25/21 1 Naa Talavera MD [address] [place] [address] Assigned Surgical Provider 03/12/21 09/16/21 Lucian Villegas MD [address] [facility] [address] [place] [address] Assigned Surgical Provider 09/17/21 03/29/23 Myke Dolan MD [address] [place] [address] Assigned Surgical Provider 04/06/23 documented as of this encounter
--- OUTSIDE RECORDS SUMMARY | 2025-01-16 10:26 | XMS_ITS | Encounter Summary ---
Author Organization [place] Address [address] [place] [address] Care Team Providers Care Data Miner Name Role Phone Germaine Pena MD Primary Care Provider Max Andrews MD Primary Care Provider [phone] Toney Escobar MD Primary Care Provider [phone] Tereza Centeno MD Primary Care Provider Unav [facility] Primary Care Provider + Naa Talavera MD Unavailable +[phone] Naa Talavera MD Unavailable +[phone] Tonya Acuña PA-C Unavailable +[phone] Minerva Rico PA-C Unavailable +[phone] Naa Talavera MD Unavailable +[phone] Lucian Villegas MD Unavailable +[phone] Rhianna Bravo MD Primary Care Provider [phone] System, Provider Not In Primary Care Provider Un available Myke Dolan MD Unavailable +[phone] Encounter Details Date Type Department Care Team (Late st Contact Info) Description 02/17/2006 [facility] Medical Advice [facility] [address] [place] [address] Tammy Dave MD XXX [place] [address] Social History Tobacco Use Types Packs/Day Years Used Date Smoking Tobacco: Never Alcohol Use Standard Drinks/Week Comments Yes 0 (1 standard drink = 0.6 oz pur e alcohol) occasionally Comments No Sex and Gender Information Value Date Recorded Sex Assigned at Female 09/09/2021 6:11 AM CDT 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 Gender Identity Female 09/09/2021 6:11 AM CDT Sexual Orientation Straight 09/09/2021 6: 11 AM CDT Occupation Industry Job Start Date Job End Date home for now Not on file Not on file Not on file documented as of this encounter Plan of Treatment Upcoming Encounters Date Type Department Care Team (Late st Contact Info) Description 01/21/2025 12:00 PM CDT Office Visit [address] [address] Myke Dolan MD [address] [place] [address] documented as of this encounter Visit Diagnoses Not on filedocumented in this encounter Care Teams Data Miner Relationship Specialty Start Date End Date Germaine Pena MD PCP - General 11/18/03 10/22/12 Max Andrews MD [address] [place] [address] PCP - General Family Practice 10/23/12 02/25/13 [place] [address] [place] [address] PCP - General Family Practice 02/26/13 02/04/14 [place] [address] [place] [address] PCP - General Family Practice 02/05/14 09/25/17 [facility] PCP - General Family Practice 09/26/17 11/21/21 [place] [address] [place] [address] PCP - General Family Medicine 11/22/21 03/27/23 System, Provider Not In PCP - General Clinic 03/28/23 Naa Talavera MD [address] [place] [address] 056395 Urology 02/23/20 Naa Talavera MD [address] [place] [address] 931045 Assigned Surgical Provider 09/02/20 01/24/21 Tonya Acuña PA-C [address] [place] [address] Assigned Surgical Provider 01/25/21 03/11/21 Minerva Rico PA-C [address] [address] Assigned OBGYN Provider 01/25/21 Naa Talavera MD [address] [place] [address] 519445 Assigned Surgical Provider 03/12/21 09/16/21 Lucian Villegas MD [address] [address] Assigned Surgical Provider 09/17/21 03/29/23 Myke Dolan MD [address] [place], [place] 193322 Assigned Surgical Provider 04/06/23 documented as of this encounter
--- OUTSIDE RECORDS SUMMARY | 2025-01-16 10:27 | XMS_ITS | Encounter Summary ---
Author Organization [place] Address [facility] [place] [address] Care Team Providers Care School Bus Dispatcher Name Role Phone Naa Talavera MD Unavailable [phone] System, Provider Not In Primary Care Provider Un available Myke Dolan MD Unavailable [phone] Encounter Details Date Type Department Care Team (Late st Contact Info) Description 06/23/2024 [place] Medical Advice [facility] 3rd Flr [address] [place] [address] Claire Pedrozaview Social History Tobacco Use Types Packs/Day Years [...] AM CDT 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 Gender Identity Female 09/09/2021 6:11 AM CDT Sexual Orientation Straight 09/09/2021 6: 11 AM CDT Occupation Industry Job Start Date Job End Date home for now Not on file Not on file Not on file documented as of this encounter Plan of Treatment Upcoming Encounters Date Type Department Care Team (Late st Contact Info) Description 01/21/2025 12:00 PM CDT Office Visit [facility] [address] [place] [address] Myke Dolan MD [address] [place] [address] documented as of this encounter Visit Diagnoses Not on filedocumented in this encounter Additional Health Concerns Assessment Noted Time PHQ-9 Depression Total Score: 5 03/09/20 21 8:22 AM CDT documented as of this encounter Care Teams School Bus Dispatcher Relationship Specialty Start Date End Date System, Provider Not In PCP - General Clinic 03/28/23 Naa Talavera MD [address] [place] [address] [address] [place] [address] Urology 02/23/20 Myke Dolan MD [address] [place] [address] Assigned Surgical Provider 04/06/23 documented as of this encounter
--- OUTSIDE RECORDS SUMMARY | 2025-01-16 10:27 | XMS_ITS | Encounter Summary ---
Author Organization [place] Address [address] [place] [address] Care Team Providers Care Charter Pilot Name Role Phone Germaine Pena MD Primary Care Provider Max Andrews MD Primary Care Provider [phone] Toney Escobar MD Primary Care Provider [phone] Tereza Centeno MD Primary Care Provider Unav [facility] Primary Care Provider + Naa Talavera MD Unavailable +[phone] Naa Talavera MD Unavailable +[phone] Tonya Acuña PA-C Unavailable +[phone] Minerva Rico PA-C Unavailable +[phone] Naa Talavera MD Unavailable +[phone] Lucian Villegas MD Unavailable +[phone] Rhianna Bravo MD Primary Care Provider [phone] System, Provider Not In Primary Care Provider Un available Myke Dolan MD Unavailable [phone] Encounter Details Date Type Department Care Team (Late st Contact Info) Description 06/03/2009 MyC Medical Advice Initial Department [facility] Social History Tobacco Use Types Packs/Day Years Used Date Smoking Tobacco: Never Alcohol Use Standard Drinks/Week Comments Yes 0 (1 standard drink = 0.6 oz pur e alcohol) occasionally Comments No Sex and Gender Information Value Date Recorded Sex Assigned at Female 09/09/2021 6:11 AM CDT 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 Gender Identity Female 09/09/2021 6:11 AM CDT Sexual Orientation Straight 09/09/2021 6: 11 AM CDT Occupation Industry Job Start Date Job End Date home for now Not on file Not on file Not on file documented as of this encounter Plan of Treatment Upcoming Encounters Date Type Department Care Team (Late st Contact Info) Description 01/21/2025 12:00 PM CDT Office Visit [address] [address] Myke Dolan MD [address] [place] [address] documented as of this encounter Visit Diagnoses Not on filedocumented in this encounter Care Teams Charter Pilot Relationship Specialty Start Date End Date Germaine Pena MD PCP - General 11/18/03 10/22/12 Max Andrews MD [address] [place] [address] PCP - General Family Practice 10/23/12 02/25/13 [place] [address] [place] [address] PCP - General Family Practice 02/26/13 02/04/14 [place] [address] [place] [address] PCP - General Family Practice 02/05/14 09/25/17 [facility] PCP - General Family Practice 09/26/17 11/21/21 [place] [address] [place] [address] PCP - General Family Medicine 11/22/21 03/27/23 System, Provider Not In PCP - General Clinic 03/28/23 Naa Talavera MD [address] 492965 Urology 02/23/20 Naa Talavera MD [address] [place] [address] 899905 Assigned Surgical Provider 09/02/20 01/24/21 Tonya Acuña PA-C [address] [place], [place] 304155 Assigned Surgical Provider 01/25/21 03/11/21 Minerva Rico PA-C [address] [address] Assigned OBGYN Provider 01/25/21 1 Naa Talavera MD [address] [place] [address] 659685 Assigned Surgical Provider 03/12/21 09/16/21 Lucian Villegas MD [address] [facility] [address] [place] [address] Assigned Surgical Provider 09/17/21 03/29/23 Myke Dolan MD [address] [facility] [place] [address] Assigned Surgical Provider 04/06/23 documented as of this encounter
--- OUTSIDE RECORDS SUMMARY | 2025-01-16 10:27 | XMS_ITS | Encounter Summary ---
Author Organization [place] Address [address] [place] [address] Care Team Providers Care Farmworker Fryer Farm Name Role Phone Toney Escobar MD Primary Care Provider [phone] Tereza Centeno MD Primary Care Provider Unav ailable [facility] Primary Care Provider + Naa Talavera MD Unavailable +[phone] Naa Talavera MD Unavailable +[phone] Tonya Acuña PA-C Unavailable +[phone] Minerva Rico PA-C Unavailable +[phone] Naa Talavera MD Unavailable +[phone] Lucian Villegas MD Unavailable +[phone] Rhianna Bravo MD Primary Care Provider [phone] System, Provider Not In Primary Care Provider Un available Myke Dolan MD Unavailable [phone] Reason for Visit * Reason Onset Date Comments Patient Request 11/13/2013 Encounter Details Date Type Department Care Team (Late st Contact Info) Description 11/13/2013 [facility] [address] [place] [address] [place] [address] [place] [address] Patient Request Social History Tobacco Use Types Packs/Day Years Used Date Smoking Tobacco: Never Smokeless Tobacco: Never Alcohol Use Standard Drinks/Week Comments Yes 0 (1 standard drink = 0.6 oz pur e alcohol) occasionally Comments No Sex and Gender Information Value Date Recorded Sex Assigned at Female 09/09/2021 6:11 AM CDT 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 Gender Identity Female 09/09/2021 6:11 AM CDT Sexual Orientation Straight 09/09/2021 6: 11 AM CDT Occupation Industry Job Start Date Job End Date home for now Not on file Not on file Not on file documented as of this encounter Plan of Treatment Upcoming Encounters Date Type Department Care Team (Late st Contact Info) Description 01/21/2025 12:00 PM CDT Office Visit [address] [address] Myke Dolan MD [address] [place] [address] documented as of this encounter Visit Diagnoses Not on filedocumented in this encounter Care Teams Farmworker [employer]er Farm Relationship Specialty Start [place] [address] [place] [address] PCP - General Family Practice 02/26/13 02/04/14 [place] [address] [place] [address] PCP - General Family Practice 02/05/14 09/25/17 [facility] PCP - General Family Practice 09/26/17 11/21/21 [place] [address] [place] [address] PCP - General Family Medicine 11/22/21 03/27/23 System, Provider Not In PCP - General Clinic 03/28/23 Naa Talavera MD [address] [place] [address] Urology 02/23/20 Naa Talavera MD [address] [place] [address] 009865 Assigned Surgical Provider 09/02/20 01/24/21 Tonya Acuña PA-C 9[address] [place], [place] 765095 Assigned Surgical Provider 01/25/21 03/11/21 Minerva Rico PA-C [address] 214[address] Assigned OBGYN Provider 01/25/21 Naa Talavera MD [address] [place] [address] 038905 Assigned Surgical Provider 03/12/21 09/16/21 Lucian Villegas MD [address] [facility] 300 [place], [place] 700427 Assigned Surgical Provider 09/17/21 03/29/23 Myke Dolan MD [address] [place], [place] 135242 Assigned Surgical Provider 04/06/23 documented as of this encounter
--- OUTSIDE RECORDS SUMMARY | 2025-01-16 10:27 | XMS_ITS | Encounter Summary ---
Author Organization [place] Address [address] [place] [address] Care Team Providers Care Lead Generation Representative Name Role Phone Germaine Pena MD Primary Care Provider Max Andrews MD Primary Care Provider [phone] Toney Escobar MD Primary Care Provider [phone] Tereza Centeno MD Primary Care Provider Unav [facility] Primary Care Provider + Naa Talavera MD Unavailable +[phone] Naa Talavera MD Unavailable +[phone] Tonya Acuña PA-C Unavailable +[phone] Mienrva Rico PA-C Unavailable +[phone] Naa Talavera MD Unavailable +[phone] Lucian Villegas MD Unavailable +[phone] Rhianna Bravo MD Primary Care Provider [phone] System, Provider Not In Primary Care Provider Un available Myke Dolan MD Unavailable [phone] Encounter Details Date Type Department Care Team (Late Contact Info) Description 04/22/2008 MyC Medical Advice [address] [place] [address] Irene Pedroza Social History Tobacco Use Types Packs/Day Years Used Date Smoking Tobacco: Never Alcohol Use Standard Drinks/Week Comments Yes 0 (1 standard drink = 0.6 oz pur e alcohol) occasionally Comments No Sex and Gender Information Value Date Recorded Sex Assigned at Female 09/09/2021 6:11 AM CDT 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 Gender Identity Female 09/09/2021 6:11 AM CDT Sexual Orientation Straight 09/09/2021 6: 11 AM CDT Occupation Industry Job Start Date Job End Date home for now Not on file Not on file Not on file documented as of this encounter Plan of Treatment Upcoming Encounters Date Type Department Care Team (Late Contact Info) Description 01/21/2025 12:00 PM CDT Office Visit [address] [address] Myke Dolan MD [address] [place] [address] documented as of this encounter Visit Diagnoses Not on filedocumented in this encounter Care Teams Lead Generation Representative Relationship Specialty Start Date End Date Germaine Pena MD PCP - General 11/18/03 10/22/12 Max Andrews MD [address] [place] [address] PCP - General Family Practice 10/23/12 02/25/13 [place] [address] [place] [address] PCP - General Family Practice 02/26/13 02/04/14 [place] [address] [place] [address] PCP - General Family Practice 02/05/14 09/25/17 [facility] PCP - General Family Practice 09/26/17 11/21/21 [place] [address] [address] [place], [place] [address] PCP - General Family Medicine 11/22/21 03/27/23 System, Provider Not In PCP - General Clinic 03/28/23 Naa Talavera MD [address] [place] [address] Urology 02/23/20 Naa Talavera MD [address] [place] [address] Assigned Surgical Provider 09/02/20 01/24/21 Tonya Acuña PA-C 909 [place] [address] Assigned Surgical Provider 01/25/21 03/11/21 Minerva Rico PA-C [address] [address] Assigned OBGYN Provider 01/25/21 Naa Talavera MD [address] [place] [address] Assigned Surgical Provider 03/12/21 09/16/21 Lucian Villegas MD [address] [facility] 300 [place] [address] Assigned Surgical Provider 09/17/21 03/29/23 Myke Dolan MD [address] [place] [address] Assigned Surgical Provider 04/06/23 documented as of this encounter
--- OUTSIDE RECORDS SUMMARY | 2025-01-16 10:27 | XMS_ITS | Encounter Summary ---
Author Organization [place] Address [address] [place] [address] Care Team Providers Care Employment Instructional Associate Name Role Phone Germaine Pena MD Primary Care Provider Max Andrews MD Primary Care Provider [phone] Toney Escobar MD Primary Care Provider [phone] Tereza Centeno MD Primary Care Provider Unav [facility] Primary Care Provider + Naa Talavera MD Unavailable [phone] Naa Talavera MD Unavailable +[phone] Tonya Acuña PA-C Unavailable +[phone] Minerva Rico PA-C Unavailable +[phone] Naa Talavera MD Unavailable +[phone] Lucian Villegas MD Unavailable +[phone] Rhianna Bravo MD Primary Care Provider [phone] System, Provider Not In Primary Care Provider Un available Myke Dolan MD Unavailable +[phone] Encounter Details Date Type Department Care Team (Late Contact Info) Description 05/30/2009 My[facility] Medical Advice [address] [address] Germaine Pena MD [address] [place] [address] Social History Tobacco Use Types Packs/Day Years Used Date Smoking Tobacco: Never Alcohol Use Standard Drinks/Week Comments Yes 0 (1 standard drink = 0.6 oz pur e alcohol) occasionally Comments No Sex and Gender Information Value Date Recorded Sex Assigned at Female 09/09/2021 6:11 AM CDT 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 Gender Identity Female 09/09/2021 6:11 AM CDT Sexual Orientation Straight 09/09/2021 6: 11 AM CDT Occupation Industry Job Start Date Job End Date home for now Not on file Not on file Not on file documented as of this encounter Plan of Treatment Upcoming Encounters Date Type Department Care Team (Late st Contact Info) Description 01/21/2025 12:00 PM CDT Office Visit [address] [address] Myke Dolan MD [address] [place] [address] documented as of this encounter Visit Diagnoses Not on filedocumented in this encounter Care Teams Employment Instructional Associate Relationship Specialty Start Date End Date Germaine Pena MD PCP - General 11/18/03 10/22/12 Max Andrews MD [address] [place] [address] PCP - General Family Practice 10/23/12 02/25/13 [place] [address] [place] [address] PCP - General Family Practice 02/26/13 02/04/14 [place] [address] [place] [address] PCP - General Family Practice 02/05/14 09/25/17 [facility] PCP - General Family Practice 09/26/17 11/21/21 [place] [address] [place] [address] PCP - General Family Medicine 11/22/21 03/27/23 System, Provider Not In PCP - General Clinic 03/28/23 Naa Talavera MD [address] [place] [address] [id number] Urology 02/23/20 Naa Talavera MD [address] [place] [address] 216635 Assigned Surgical Provider 09/02/20 01/24/21 Tonya Acuña PA-C 9 [place], [place] 005485 Assigned Surgical Provider 01/25/21 03/11/21 Minerva Rico PA-C [address] 771265 Assigned OBGYN Provider 01/25/21 5 1 Naa Talavera MD [address] [place] [address]1005 Assigned Surgical Provider 03/12/21 09/16/21 Lucian Villegas MD [address] [address] Assigned Surgical Provider 09/17/21 03/29/23 Myke Dolan MD [address]01 [place] [address] Assigned Surgical Provider 04/06/23 documented as of this encounter
--- OUTSIDE RECORDS SUMMARY | 2025-01-16 10:27 | XMS_ITS | Encounter Summary ---
Author Organization [place] Address [address] [place] [address] Care Team Providers Care Paper Bag Machine Operator Name Role Phone Germaine Pena MD Primary Care Provider Max Andrews MD Primary Care Provider [phone] Toney Escobar MD Primary Care Provider [phone] Tereza Centeno MD Primary Care Provider Unav [facility] Primary Care Provider + Naa Talavera MD Unavailable +[phone] Naa Talavera MD Unavailable +[phone] Tonya Acuña PA-C Unavailable +[phone] Minerva Rico PA-C Unavailable +[phone] Naa Talavera MD Unavailable +[phone] Lucian Villegas MD Unavailable +[phone] Rhianna Bravo MD Primary Care Provider [phone] System, Provider Not In Primary Care Provider Un available Myke Dolan MD Unavailable [phone] Encounter Details Date Type Department Care Team (Late Contact Info) Description 04/20/2008 My[facility] Medical Advice [address] [address] Germaine Pena MD [address] [place] [address] Social History Tobacco Use Types Packs/Day Years Used Date Smoking Tobacco: Never Alcohol Use Standard Drinks/Week Comments Yes 0 (1 standard drink = 0.6 oz pur e alcohol) occasionally Comments No Sex and Gender Information Value Date Recorded Sex Assigned at Female 09/09/2021 6:11 AM CDT 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 Gender Identity Female 09/09/2021 6:11 AM CDT Sexual Orientation Straight 09/09/2021 6: 11 AM CDT Occupation Industry Job Start Date Job End Date home for now Not on file Not on file Not on file documented as of this encounter Plan of Treatment Upcoming Encounters Date Type Department Care Team (Late Contact Info) Description 01/21/2025 12:00 PM CDT Office Visit [address] [address] Myke Dolan MD [address] [place] [address] documented as of this encounter Visit Diagnoses Not on filedocumented in this encounter Care Teams Paper Bag Machine Operator Relationship Specialty Start Date End Date Germaine Pena MD PCP - General 11/18/03 10/22/12 Max Andrews MD [address] [place] [address] PCP - General Family Practice 10/23/12 02/25/13 [place] [address] [place] [address] PCP - General Family Practice 02/26/13 02/04/14 [place] [address] [place] [address] PCP - General Family Practice 02/05/14 09/25/17 [facility] PCP - General Family Practice 09/26/17 11/21/21 [place] [address] [place] [address] PCP - General Family Medicine 11/22/21 03/27/23 System, Provider Not In PCP - General Clinic 03/28/23 Naa Talavera MD [address] [place] [address] 94228455 Urology 02/23/20 Naa Talavera MD [address] [place] [address] 719365 Assigned Surgical Provider 09/02/20 01/24/21 Tonya Acuña PA-C 9 [place], [place] 257545 Assigned Surgical Provider 01/25/21 03/11/21 Minerva Rico PA-C [address] 819445 Assigned OBGYN Provider 01/25/21 5 1 Naa Talavera MD [address] [place] [address] 700915 Assigned Surgical Provider 03/12/21 09/16/21 Lucian Villegas MD [address] [address] Assigned Surgical Provider 09/17/21 03/29/23 Myke Dolan MD 6401 [place] [address] Assigned Surgical Provider 04/06/23 documented as of this encounter
--- OUTSIDE RECORDS SUMMARY | 2025-01-16 10:27 | XMS_ITS | Encounter Summary ---
Author Organization [facility] Address [address] [place] [address] Care Team Providers Care Cpa Tax Name Role Phone Naa Talavera MD Unavailable [phone] System, Provider Not In Primary Care Provider Un available Myke Dolan MD Unavailable [phone] Encounter Details Date Type Department Care Team (Latest Contact Info) Description 01/15/2025 Travel Social History Tobacco Use Types Packs/Day Years Used Date Smoking Tobacco: Never Passive Smoke Exposure: Never Smokeless Tobacco: Never Alcohol Use Standard Drinks/Week Comments Yes 0 (1 standard drink = 0.6 oz pur e alcohol) occasionally PHQ-2 Answer Date Recorded PHQ-2 Score 2 03/09/2021 Adolescent Education Answer Date Record ed Getting School Help Needed Not on file 08/04 Food Insecurity Answer Date Recorded Within the past 12 months, d id you worry that your food would run out before you got money to buy more? No 11/07/2024 Within the past 12 months, d id the food you bought just not last and you didn t have money to get more? No 11/07/2024 Housing Stability Answer Date Recorded Do you have housing? (Housin g is defined as stable permanent housing and does not include staying ouside in a car, in a tent, in an abandoned building, in an overnight care home, or couch-surfing.) Yes 11/07/2024 Are you worried about losing your housing? No 11/07/2024 Financial Resource Strain Answer Date R ecorded Within the past 12 months, h ave you or your family members you live with been unable to get utilities (heat, electricity) when it was really needed? No 11/07/2024 Transportation Needs Answer Date Record ed Within the past 12 months, h as lack of transportation kept you from medical appointments, getting your medicines, non-medical meetings or appointments, work, or from getting things that you need? No 11/07/2024 Interpersonal Safety Answer Date Record ed Do you feel physically and e motionally safe where you currently live? Yes 11/05/2024 Within the past 12 months, h ave you been hit, slapped, kicked or otherwise physically hurt by someone? No 11/05/2024 Within the past 12 months, h ave you been humiliated or emotionally abused in other ways by your partner or ex-partner? 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 Gender Identity Female 09/09/2021 6:11 AM CDT Sexual Orientation Straight 09/09/2021 6: 11 AM CDT Occupation Industry Job Start Date Job End Date home for now Not on file Not on file Not on file documented as of this encounter Plan of Treatment Upcoming Encounters Date Type Department Care Team (Late st Contact Info) Description 01/21/2025 12:00 PM CDT Office Visit [address] [phone] Myke Dolan MD [address] [place] [phone] documented as of this encounter Visit Diagnoses Not on filedocumented in this encounter Additional Health Concerns Assessment Noted Time PHQ-9 Depression Total Score: 5 03/09/20 21 8:22 AM CDT documented as of this encounter Care Teams Cpa Tax Relationship Specialty Start Date End Date System, Provider Not In PCP - General Clinic 03/28/23 Naa Talavera MD [address] [facility] [address] [place] [address] Urology 02/23/20 Myke Dolan MD [address] [place], [place] [id number] Assigned Surgical Provider 04/06/23 documented as of this encounter
--- OUTSIDE RECORDS SUMMARY | 2025-01-16 10:27 | XMS_ITS | Clinical Summary ---
Author Organization [place] Address [facility] [place] [address] Care Team Providers Care Avid Editor Name Role Phone Naa Talavera MD Unavailable [phone] System, Provider Not In Primary Care Provider Un available Myke Dolan MD Unavailable Allergies Active Allergy Reactions Criticality Noted Date Comments Animal Dander 12/13/2003 Dust Mites 12/13/2003 Mold 12/13/2003 Medications amLODIPine (NORVASC) 5 MG tablet Take 5 mg by mouth daily 04/11/20 20 Active cetirizine (ZYRTEC) 10 MG tablet Take 10 mg by mouth daily Active traZODone (DESYREL) 100 MG tablet Take 100 mg by mouth at bedtime. 11/29/19 22 Active atorvastatin (LIPITOR) 10 MG tablet Take 10 mg by mouth every evening. Active metFORMIN (GLUCOPHAGE) 500 MG tablet Take 500 mg by mouth at bedtime. Active acetaminophen (TYLENOL) 500 MG tablet Take 1,000 mg by mouth daily as needed for pain. Active HYDROmorphone (DILAUDID) 2 MG tabletIndications :Acute cholecystitis Take 1 tablet (2 mg) by mouth every 4 hours as needed for moderate pain. 12 tablet 11/07/20 24 Active senna-docusate (SENOKOT-S/NATTY LACE) 8.6-50 MG tabletIndications :Acute cholecystitis Take 1-2 tablets by mouth 2 times daily as needed for constipation. 100 tablet 11/07/20 24 Active losartan-hydrochl orothiazide (HYZAAR) 100-25 MG tabletIndications :HTN, goal below 140/90 Take 1 tablet by mouth daily. 11/02/20 24 Active methylPREDNISolon e (MEDROL DOSEPAK) 4 MG tablet therapy packIndications:R etro-orbital pain of left eye,Temporal pain Follow package instructions 21 tablet 01/16/20 25 Active Active Problems Problem Noted Date Diagnosed Date Acute cholecystitis 11/05/2024 History of suburethral sling procedure 9 Myalgia of pelvic floor 09/30/2019 Pelvic floor dysfunction 09/30/2019 Obesity (BMI 35.0-39.9) with comorbidity 019 SBO (small bowel obstruction) 04/24/2013 HTN, goal below 140/90 09/03/2011 CARDIOVASCULAR SCREENING; LDL GOAL LESS THAN 100 12/21/2009 DEPRESSION 05/16/2009 Attention deficit disorder 05/19/2007 Overview (08/11/2015): Problem list name updated by automated process. Provider to review Leiomyoma of uterus 05/09/2007 Overview (08/11/2015): Problem list name updated by automated process. Provider to review Essential hypertension 11/23/2004 Overview (08/11/2015): Problem list name updated by automated process. Provider to review Abnormal glucose 11/23/2004 Overview (08/11/2015): impaired glucose tolerance Problem list name updated by automated process. Provider to review Obesity 03/08/2004 Overview (08/11/2015): BMI Problem list name updated by automated process. Provider to review Increased life stressors 03/08/2004 Dyspnea and respiratory abnormality 03/08/2004 Overview (08/11/2015): not clear apnea per her Pulmonary evaluation Problem list name updated by automated process. Provider to review Allergic rhinitis 11/18/2003 Overview (08/11/2015): runny nose Problem list name updated by automated process. Provider to review Iron deficiency anemia 11/18/2003 Overview (08/11/2015): Dr. Noel Problem list name updated by automated process. Provider to review Resolved Problems Problem Noted Date Diagnosed Date Resolved Date Mixed stress and urge urinary incontinence 09/30/2019 02/17/2020 Shoulder pain 11/02/2013 11/30/2013 Hip pain 09/24/2011 10/30/2013 Excessive or frequent menstruation 04/01/2007 09/01/2007 Encounters Date Type Department Care Team Description 01/15/2025 4:00 PM PLATEMAKER Office Visit [facility] [address] [address] Israel Patel, KELLEN Retro-orbital pain of left eye (Primary Dx); Temporal pain 01/15/2025 Travel 11/10/2024 MyC Medical Advice Initial Department [facility] Post-Op - General Surgery 11/10/2024 [facility] Medical Advice Initial Department [facility] 11/09/2024 4:35 PM PLATEMAKER Lab [facility] [address] [place] [address] S/P laparoscopic cholecystectomy; Elevated lipase 11/09/2024 Travel 11/09/2024 Telephone [facility] [place] [address] [place] [phone] Jair Vieira MD Post-Op - General Surgery (S/p lap patricia 11/06/24) 11/06/2024 8:40 AM PLATEMAKER - 11/06/2024 10:25 AM PLATEMAKER Surgery [facility] [address] [place] [address] Jair Vieira MD CHOLECYSTECTOMY, ROBOT-ASSISTED, LAPAROSCOPIC, USING DA OTIS XI, LYSIS OF ADHESIONS 11/06/2024 8:39 AM PLATEMAKER Anesthesia Event [facility] [address] [place] [address] Jair Ragsdale MD 11/06/2024 Travel 11/05/2024 4:43 PM PLATEMAKER - 11/07/2024 1:00 PM PLATEMAKER Emergency [facility] [address] [place] [address] Daniel Paez MD Kalinoski-Dubose, Michael T, MD Christie, Robert, MD HTN, goal below 140/90 (Primary Dx); Acute cholecystitis Discharge Disposition: Home or Self Care 11/05/2024 Travel 10/23/2024 3:55 PM PLATEMAKER Office Visit [facility] [address] [phone] Israel Patel, PAYueC Frontal sinus pain (Primary Dx); Pain of maxillary sinus; Congestion of paranasal sinus 10/23/2024 Travel from Last 3 Months Immunizations Name Administration Dates Next Due DTaP, Unspecified 06/05/2017,06/25/2012 Flu, Unspecified 09/04/2019, 7,08/29/2015,2013,08/20/2014 [id number] Novel Flu 10/20/2009 Hepatitis A (ADULT 19+) 02/01/2014,06/01/2002 Influenza (IIV3) PF 09/21/2013, 2,09/04/2011,2009,08/27/2007,09/02/2006 Influenza Vaccine >6 months,quad, PF 09/21/2013 Influenza Vaccine IM Ages 6- 35 Months 4 Valent (PF) 08/14/2018 Mantoux Tuberculin Skin Test 04/29/2006 Poliovirus, inactivated (IPV) 06/01/2002 TD,PF 7+ (Tenivac) 02/11/2002 TDAP Vaccine (Adacel) 06/26/2012 Typhoid IM 06/01/2002 Yellow Fever 06/01/2002 Family History Medical History Relation Comments Hypertension Brother 2 Family History Negative No family hx of Relation Status Comments Brother 1 Alive 3 Half-brothers Brother 2 Daughter 1 Alive Daughter 2 Alive Father Mother Alive Son Alive Social History Tobacco Use Types Packs/Day Years Used Date Smoking Tobacco: Never Passive Smoke Exposure: Never Smokeless Tobacco: Never Tobacco Cessation:Counseling Given: Not Answered Alcohol Use Standard Drinks/Week Comments Yes 0 [...] Answer Date Recorded Do you have housing? (Harpal g is defined as stable permanent housing and does not include staying ouside in a car, in a tent, in an abandoned building, in an overnight chcf, or couch-surfing.) Yes 11/07/2024 Are you worried [...] AM CDT Legal Sex Female 3:25 AM PLATEMAKER Gender Identity Female 09/09/2021 6:11 AM CDT Sexual Orientation Straight 09/09/2021 6: 11 AM CDT Occupation Industry Job Start Date Job End Date home for now Not on file Not on file Not on file Last Filed Vital Signs Vital Sign Reading Time Taken Comments Blood Pressure 142/92 01/15/2025 4:04 PM PLATEMAKER Pulse 83 01/15/2025 4:04 PM PLATEMAKER Temperature 36.1 C (97 F) 01/15/2025 4:04 PM PLATEMAKER Respiratory Rate 18 01/15/2025 4:04 PM PLATEMAKER Oxygen Saturation 98% 01/15/2025 4:04 PM PLATEMAKER Inhaled Oxygen Concentration - - Weight 89.9 kg (198 lb 3.2 oz) 01/15/2025 4:04 P M PLATEMAKER Height 162.6 cm (5' 4) 11/05/2024 12:03 PM PLATEMAKER Body Mass Index 34.02 11/05/2024 12:03 PM PLATEMAKER Plan of Treatment Upcoming Encounters Date Type Department Care Team (Late st Contact Info) Description 01/21/2025 12:00 PM CDT Office Visit [address] [phone] Myke Dolan MD [address] [place] [id number] Health Maintenance Due Date Last Done Comments ADVANCE CARE PLANNING 1960 ANNUAL REVIEW OF HM ORDERS [address] CT COLONOGRAPHY 1962 FIT 1962 FLEX SIG 1962 sDNA (Cologuard) 1962 HIV SCREENING 1977 Pneumococcal Vaccine: 50+ Years (1 of 1 - PCV) 2012 MICROALBUMIN 04/14/2014 04/14/2013, 03/15/2011 LIPID 09/21/2018 09/21/2013, 11/0 11/2011, 09/04/2011, Additional history exists PHQ-9 09/08/2021 03/09/2021, 07/2 12/2012, 12/24/2012, Additional history exists YEARLY PREVENTIVE VISIT 01/24/2023 01/25/20 22, 10/01/2019, 09/21/2013, Additional history exists MAMMO SCREENING 02/08/2023 02/08/2022, 03/3 11/2021, 12/20/2020, Additional history exists COVID-19 Vaccine ( season) 2024 08/31/2023, 09/17/2022, 10/18/2021, Additional history exists PAP 01/24/2025 01/24/2022, 09/12, 10/01/2019, Additional history exists BMP 11/09/2025 11/09/2024, 10/12, 11/06/2024, Additional history exists GLUCOSE 11/09/2027 11/09/2024, 10/12, 11/06/2024, Additional history exists COLONOSCOPY 06/09/2028 06/09/2018, 03/12/2013 COLORECTAL CANCER SCREENING 06/09/2028 DTAP/TDAP/TD IMMUNIZATION (5 - Td or Tdap) 06/04/2033 06/04/2023, 06/05/2017, 06/05/2017, Additional history exists RSV VACCINE (1 - 1-dose 75+ series) 2037 DEPRESSION ACTION PLAN Completed 3, 09/04/2012, 09/04/2011 ZOSTER IMMUNIZATION Completed 08/21/2021, HEPATITIS C SCREENING Completed 01/24/2022 MENINGITIS IMMUNIZATION Aged Out 06/04/2023 No l onger eligible based on patient's age to complete this topic INFLUENZA VACCINE Completed 07/28/2024, , 09/17/2022, Additional history exists HPV IMMUNIZATION Aged Out No longer e ligible based on patient's age to complete this topic Medical Devices Implanted Type Area Transition Rn Device Identifier Shelf Expiration Date Model / Serial / Lot Mesh Composite Parietene Ds [id number] - [id number] Implanted:Qty: 1 on 12/08/2021 by Lucian Villegas MD at [facility] Mesh N/A: Abdomen COVIDIEN 12/11/2023 [id number] / / [id number] Procedures Procedure Name Priority Date/Time Associated Diagnosis Comments CBC WITH PLATELETS & DIFFERENTIAL STAT 01/15/2025 4:28 PM PLATEMAKER Retro-orbital pain of left eye Temporal pain CBC WITH PLATELETS AND DIFFERENTIAL STAT 01/15/2025 4:28 PM PLATEMAKER Retro-orbital pain of left eye Temporal pain CRP INFLAMMATION STAT 01/15/2025 4:28 PM PLATEMAKER Retro-orbital pain of left eye Temporal pain ERYTHROCYTE SEDIMENTATION RATE AUTO STAT 01/15/2025 4:28 PM PLATEMAKER Retro-orbital pain of left eye Temporal pain LIPASE Routine 11/09/2024 4:39 PM PLATEMAKER S/P laparoscopic cholecystectomy Elevated lipase COMPREHENSIVE METABOLIC PANEL Routine 11/09/2024 4:39 PM PLATEMAKER S/P laparoscopic cholecystectomy Elevated lipase BILIRUBIN DIRECT Routine 11/07/2024 5:16 AM PLATEMAKER LIPASE Routine 11/07/2024 5:16 AM PLATEMAKER COMPREHENSIVE METABOLIC PANEL Routine 11/07/2024 5:16 AM PLATEMAKER CBC WITH PLATELETS Routine 11/07/2024 5: 16 AM PLATEMAKER SURGICAL PATHOLOGY EXAM Routine 11/06/2024 9:41 AM PLATEMAKER ANE AIRWAY ETT PERFORMABLE Routine 11/06/2024 8:52 AM PLATEMAKER CHOLECYSTECTOMY, ROBOT-ASSISTED, LAPAROSCOPIC, USING DA OTIS XI 11/06/2024 8:45 AM PLATEMAKER Acute cholecystitis COMPREHENSIVE METABOLIC PANEL Routine 11/06/2024 5:49 AM PLATEMAKER CBC WITH PLATELETS Routine 11/06/2024 5: 49 AM PLATEMAKER US ABDOMEN LIMITED STAT 11/05/2024 7: [address] ABDOMEN PELVIS W CONTRAST STAT 11/05/2024 5:54 PM PLATEMAKER ROUTINE UA WITH MICROSCOPIC REFLEX TO CULTURE STAT 11/05/2024 12:34 PM PLATEMAKER HCG QUALITATIVE URINE STAT 11/05/2024 12:34 PM PLATEMAKER CBC WITH PLATELETS & DIFFERENTIAL STAT 11/05/2024 12:15 PM PLATEMAKER HEMOGLOBIN A1C Add-On 11/05/2024 12:15 PM PLATEMAKER LIPASE Add-On 11/05/2024 12:15 PM PLATEMAKER EXTRA RED TOP TUBE STAT 11/05/2024 12 :15 PM PLATEMAKER EXTRA BLUE TOP TUBE STAT 11/05/2024 1 2:15 PM PLATEMAKER CBC WITH PLATELETS AND DIFFERENTIAL STAT 11/05/2024 12:15 PM PLATEMAKER EXTRA TUBE STAT 11/05/2024 12:15 PM PLATEMAKER COMPREHENSIVE METABOLIC PANEL STAT 11/05/2024 12:15 PM PLATEMAKER CRP INFLAMMATION STAT 10/23/2024 5:02 PM PLATEMAKER Frontal sinus pain ERYTHROCYTE SEDIMENTATION RATE AUTO STAT 10/23/2024 5:02 PM PLATEMAKER Frontal sinus pain MAMMOGRAM - HIM SCAN Routine 08/20/2018 LIPID REFLEX TO DIRECT LDL PANEL Routine 09/21/2013 9:57 AM PLATEMAKER Routine general medical examination at a health care facility PAP IMAGED THIN LAYER SCREEN Routine 09/21/2013 12:00 AM PLATEMAKER Routine general medical examination at a health care facility ALBUMIN RANDOM URINE QUANTITATIVE Routine 04/14/2013 10:30 AM CDT Hypertension COLONOSCOPY Routine 03/12/2013 9:29 AM CDT from Last 3 Months or Most Recently Relevant to Health Maintenance Results * (ABNORMAL) CBC with platelets and differential (01/15/2025 4:28 PM PLATEMAKER) Only the most recent of2 resultswithin the time period is included. WBC Count 5.3 4.0 - 11.0 10e3/uL 01/15/2025 4:42 PM PLATEMAKER [facility] RBC Count 4.30 3.80 - 5.20 10e6/uL 01/15/2025 4:42 PM PLATEMAKER [facility] Hemoglobin 11.0(L) 11.7 - 15.7 g/dL 01/15/2025 4:42 PM PLATEMAKER [facility] Hematocrit 34.4(L) 35.0 - 47.0 % 01/15/2025 4:42 PM PLATEMAKER [facility] MCV 80 78 - 100 fL 01/15/2025 4:42 PM PLATEMAKER [facility] MCH 25.6(L) 26.5 - 33.0 pg 01/15/2025 4:42 PM PLATEMAKER [facility] MCHC 32.0 31.5 - 36.5 g/dL 01/15/2025 4:42 PM PLATEMAKER [facility] RDW 16.2(H) 10.0 - 15.0 % 01/15/2025 4:42 PM PLATEMAKER [facility] Platelet Count 220 150 - 450 10e3/uL 01/15/2025 4:42 PM PLATEMAKER [facility] % Neutrophils 42 % 01/15/2025 4:42 PM PLATEMAKER [facility] % Lymphocytes 49 % 01/15/2025 4:42 PM PLATEMAKER [facility] % Monocytes 9 % 01/15/2025 4:42 PM PLATEMAKER [facility] % Eosinophils 1 % 01/15/2025 4:42 PM PLATEMAKER [facility] % Basophils 0 % 01/15/2025 4:42 PM PLATEMAKER [facility] % Immature Granulocytes 0 % 01/15/2025 4:42 PM PLATEMAKER [facility] Absolute Neutrophils 2.2 1.6 - 8.3 10e3/uL 01/15/2025 4:42 PM PLATEMAKER [facility] Absolute Lymphocytes 2.6 0.8 - 5.3 10e3/uL 01/15/2025 4:42 PM PLATEMAKER [facility] Absolute Monocytes 0.5 0.0 - 1.3 10e3/uL 01/15/2025 4:42 PM PLATEMAKER [facility] Absolute Eosinophils 0.1 0.0 - 0.7 10e3/uL 01/15/2025 4:42 PM PLATEMAKER [facility] Absolute Basophils 0.0 0.0 - 0.2 10e3/uL 01/15/2025 4:42 PM PLATEMAKER [facility] Absolute Immature Granulocytes 0.0 <=0.4 10e3/uL 01/15/2025 4:42 PM PLATEMAKER [facility] Blood BLOOD SPECIMEN / Unknown Venipuncture / Unknown 01/15/2025 4:28 PM PLATEMAKER 01/15/2025 4:28 PM PLATEMAKER Israel Patel PA-C LAB - BLOOD ORDERABLES Final Result [facility] [address] [place] [address] Lab (no room number, 1st floor [facility]) [address] * ESR: Erythrocyte sedimentation rate (01/15/2025 4:28 PM PLATEMAKER) Only the most recent of2 resultswithin the time period is included. Erythrocyte Sedimentation Rate 15 0 - 30 mm/hr 01/15/2025 4:42 PM PLATEMAKER [facility] Blood BLOOD SPECIMEN / Unknown Venipuncture / Unknown 01/15/2025 4:28 PM PLATEMAKER 01/15/2025 4:28 PM PLATEMAKER Israel Patel PA-C LAB - BLOOD ORDERABLES Final Result [facility] [address] (no room number, [facility]st [address] [facility]) [address] * CRP, inflammation (01/15/2025 4:28 PM PLATEMAKER) Only the most recent of2 resultswithin the time period is included. CRP Inflammation <3.00 <5.00 mg/L 01/16/20 8:47 PM PLATEMAKER [facility] Blood BLOOD SPECIMEN / Unknown Venipuncture / Unknown 01/15/2025 4:28 PM PLATEMAKER 01/15/2025 4:28 PM PLATEMAKER Israel Patel PA-C LAB - BLOOD ORDERABLES Final Result LABORATORY [facility] [address] 1st floor, [address] [place] [address], [facility] [phone] * (ABNORMAL) Lipase (11/09/2024 4:39 PM PLATEMAKER) Only the most recent of3 resultswithin the time period is included. Lipase 87(H) 13 - 60 U/L 11/09/2024 5:20 PM PLATEMAKER LABORATORY Blood STRUCTURE OF LEFT UPPER LIMB / Unknown Venipuncture / Unknown 11/09/2024 4:39 PM PLATEMAKER 11/09/2024 4:39 PM PLATEMAKER Alfredito Arellano PA-C LAB - BLOOD ORDER DELPHINE Final Result LABORATORY [facility] [address] Lab (1st floor, no room number) [place] [address], [facility] * (ABNORMAL) Comprehensive metabolic panel (11/09/2024 4:39 PM PLATEMAKER) Only the most recent of4 resultswithin the time period is included. Sodium 140 135 - 145 mmol/L 11/09/2024 5:20 PM PLATEMAKER LABORATORY Potassium 3.9 3.4 - 5.3 mmol/L 11/09/2024 5:20 PM [facility] Carbon Dioxide (CO2) 25 22 - 29 mmol/L 11/09/2024 5:20 PM [facility] Anion Gap 11 7 - 15 mmol/L 11/09/2024 5:20 PM [facility] Urea Nitrogen 12.9 8.0 - 23.0 mg/dL 11/09/2024 5:20 PM [facility] Creatinine 1.01(H) 0.51 - 0.95 mg/dL 11/09/2024 5:20 PM [facility] GFR Estimate 63 >60 mL/min/1.7 3m2 11/09/2024 5:20 PM PLATEMAKER [facility] Comment:eGFR calculated usin 2020 CKD-EPI equation. Calcium 9.3 8.8 - 10.4 mg/dL 11/09/2024 5:20 PM PLATEMAKER [facility] Comment:Reference intervals for this test were updated on 05/26/2024 to reflect our healthy population more accurately. There may be differences in the flagging of prior results with similar values performed with this method. Those prior results can be interpreted in the context of the updated reference intervals. Chloride 104 98 - 107 mmol/L 11/09/2024 5:20 PM PLATEMAKER [facility] Glucose 88 70 - 99 mg/dL 11/09/2024 5:20 PM PLATEMAKER [facility] Alkaline Phosphatase 168(H) 40 - 150 U/L 11/09/2024 5:20 PM PLATEMAKER [facility] AST 55(H) 0 - 45 U/L 11/09/2024 5:20 PM PLATEMAKER [facility] ALT 194(H) 0 - 50 U/L 11/09/2024 5:20 PM PLATEMAKER [facility] Protein Total 6.9 6.4 - 8.3 g/dL 11/09/2024 5:20 PM PLATEMAKER [facility] Albumin 4.2 3.5 - 5.2 g/dL 11/09/2024 5:20 PM PLATEMAKER LABORATORY Bilirubin Total 0.5 <=1.2 mg/dL 11/09/2024 5:20 PM PLATEMAKER LABORATORY Blood STRUCTURE OF LEFT UPPER LIMB / Unknown Venipuncture / Unknown 11/09/2024 4:39 PM PLATEMAKER 11/09/2024 4:39 PM PLATEMAKER Alfredito Arellano PA-C LAB - BLOOD ORDER DELPHINE Final Result LABORATORY [facility] Lab [address] Lab (1st floor, no room number) [place] [address], [facility] * Bilirubin direct (11/07/2024 5:16 AM PLATEMAKER) Bilirubin Direct <0.20 0.00 - 0.30 mg/dL 11/07/2024 5:47 AM PLATEMAKER [facility] Blood STRUCTURE OF LEFT UPPER LIMB / Unknown Venipuncture / Unknown 11/07/2024 5:16 AM PLATEMAKER 11/07/2024 5:26 AM PLATEMAKER us Jair Vieira MD LAB - BLOOD ORDERABLES Final Result [facility] Lab [address] Lab (1st floor, no room number) [place] [address], [facility] * (ABNORMAL) CBC with platelets (11/07/2024 5:16 AM PLATEMAKER) Only the most recent of2 resultswithin the time period is included. Pathologist [facility] WBC Count 9.2 4.0 - 11.0 10e3/uL 11/07/2024 5:29 AM PLATEMAKER [facility] RBC Count 3.75(L) 3.80 - 5.20 10e6/uL 11/07/2024 5:29 AM PLATEMAKER [facility] Hemoglobin 9.4(L) 11.7 - 15.7 g/dL 11/07/2024 5:29 AM PLATEMAKER [facility] Hematocrit 29.2(L) 35.0 - 47.0 % 11/07/2024 5:29 AM PLATEMAKER [facility] MCV 78 78 - 100 fL 11/07/2024 5:29 AM PLATEMAKER [facility] MCH 25.1(L) 26.5 - 33.0 pg 11/07/2024 5:29 AM PLATEMAKER [facility] MCHC 32.2 31.5 - 36.5 g/dL 11/07/2024 5:29 AM PLATEMAKER [facility] RDW 17.5(H) 10.0 - 15.0 % 11/07/2024 5:29 AM PLATEMAKER [facility] Platelet Count 176 150 - 450 10e3/uL 11/07/2024 5:29 AM PLATEMAKER [facility] Blood STRUCTURE OF LEFT UPPER LIMB / Unknown Venipuncture / Unknown 11/07/2024 5:16 AM PLATEMAKER 11/07/2024 5:26 AM PLATEMAKER us Jair Vieira MD LAB - BLOOD ORDERABLES Final Result LABORATORY [facility] Lab [address] Lab (1st floor, no room number) [place] [address] * Surgical Pathology Exam (11/06/2024 9:41 AM PLATEMAKER) Case Report Surgical Pathology Report Case: [id number] Authorizing Provider: Jair Vieira MD Collected: 11/06/2024 09:41 AM Ordering Location: [facility] Received: 11/06/2024 10:31 AM Main OR Pathologist: Bronwyn Oden MD Specimen: Gallbladder, Gallbladder and Contents 11/10/2024 10:57 AM [facility] Final Diagnosis Gallbladder, cholecystectomy: -Acute on chronic cholecystitis, calculi not present 11/10/2024 10:57 AM [facility] Clinical Information Procedure: CHOLECYSTECTOMY, ROBOT-ASSISTED, LAPAROSCOPIC, USING DA OTIS XI, LYSIS OF ADHESIONS Pre-op Diagnosis: Acute cholecystitis [K81.0] Post-op Diagnosis: K81.0 - Acute cholecystitis [ICD-10-CM] 11/10/2024 10:57 AM [facility] Gross Description A(1). Gallbladder, Gallbladder and Contents: The specimen is received in formalin, labeled with the patient's name, medical record number and other identifying information designated gallbladder and contents. It consists of an 11.1 x 4.5 x 4.0 cm colby-pink, intact, fluctuant gallbladder. The cystic duct margin is entirely inked black. The specimen is opened, releases a colby-green bile without calculi (no calculi grossly identified within the specimen container). The gallbladder displays a colby-pink, velvety mucosa with an average 0.2 cm wall. No obvious possible mass or nodularities are grossly identified. [employer] sections of the gallbladder to include the cystic duct margin (inked black) are submitted in 1 cassette. (ISABELLA Mcqueen (ASCP) 11/06/2024 11:00 AM 11/10/2024 10:57 AM [facility] Microscopic Description A formal microscopic examination has been performed 11/10/2024 10:57 AM [facility] Performing Labs The technical component of this testing was completed at [facility]. Stain controls for all stains resulted within this report have been reviewed and show appropriate reactivity. 11/10/2024 10:57 AM PLATEMAKER LABORATORY Case Images 11/10/2024 10:57 AM PLATEMAKER LABORATORY Tissue GALLBLADDER PART / Unknown 11/06/2024 9:41 AM PLATEMAKER 11/06/2024 10:31 AM PLATEMAKER us Jair STILL - JABARI SHANKS Final Result LABORATORY [facility] Lab [address], [address] [place] [address], [facility] [phone] LABORATORY [facility] Lab [address] [facility] Lab (1st floor, no room number) [place] [address], [facility] * ANE AIRWAY ETT PERFORMABLE (11/06/2024 8:52 AM PLATEMAKER) Narrative Lexi Anderson APRN MECHANIC'S ASSISTANT - 11/06/2024 8:52 AM PLATEMAKER Lexi Anderson APRN MECHANIC'S ASSISTANT 11/06/2024 9:11 AM Airway Patient location during procedure: OR Procedure Start/Stop Times: 11/06/2024 8:52 AM Staff - Anesthesiologist: Jair Ragsdale MD MECHANIC'S ASSISTANT: Lexi Anderson APRN MECHANIC'S ASSISTANT Performed By: MECHANIC'S ASSISTANT Consent for Airway Urgency: elective Indications and Patient Condition Indications for airway management: shay-procedural Induction type:intravenous Mask difficulty assessment: 2 - vent by mask + OA or adjuvant +/- NMBA Final Airway Details Final airway type: endotracheal airway Successful airway: ETT - single and Oral Endotracheal Airway Details ETT size (mm): 7.0 Cuffed: yes Cuff volume (mL): 6 Successful intubation technique: direct laryngoscopy DL Blade Type: MAC 4 Grade View of Cords: 1 Adjucts: stylet Position: Right Measured from: gums/teeth Secured at (cm): 23 Bite block used: None Post intubation assessment Placement verified by: capnometry, equal breath sounds and chest rise Number of attempts at approach: 1 Number of other approaches attempted: 0 Secured with: tape Ease of procedure: easy Dentition: Intact and Unchanged Medication(s) Administered Medication Administration Time: 11/06/2024 8:52 AM Jair Ragsdale MD [place] ANESTHESIA Final Result * US Abdomen Limited (11/05/2024 7:37 PM PLATEMAKER) Radiologist flags 1.1 cm pancreatic lesion RADIOLOGY RESULTS Anatomical Region Laterality Modality Abdomen/Pelvis Ultrasound 11/05/2024 7:37 PM PLATEMAKER Impressions 11/05/2024 7:58 PM PLATEMAKER IMPRESSION: 1. Cholelithiasis, gallbladder wall thickening, and trace pericholecystic fluid, suspicious for acute cholecystitis. However, negative sonographic Fernández's sign. If confirmation is warranted, consider HIDA. 2. Hypoechoic pancreatic lesion measuring 1.1 cm, corresponding with CT findings. Consider nonemergent contrast-enhanced MRI/MRCP as suggested on CT report. [Consider Follow Up: 1.1 cm pancreatic lesion] This report will be copied to the [facility] to ensure a provider acknowledges the finding. Narrative 11/05/2024 7:58 PM PLATEMAKER EXAM: US ABDOMEN LIMITED LOCATION: [facility] DATE: 11/05/2024 INDICATION: Abdominal pain, nausea, and vomiting. Abnormal CT COMPARISON: CT abdomen/pelvis 11/05/2024 TECHNIQUE: Limited abdominal ultrasound. FINDINGS: GALLBLADDER: Concentric gallbladder wall thickening measuring up to 0.4 cm. Trace pericholecystic fluid. Few tiny gallstones in the gallbladder. Negative sonographic Fernández's sign. BILE DUCTS: No biliary dilatation. The common duct measures 5 mm. LIVER: Normal parenchyma with smooth contour. No focal mass. The main portal vein is patent with hepatopedal flow. RIGHT KIDNEY: No hydronephrosis. PANCREAS: Hypoechoic lesion of the pancreatic body measuring 1.1 x 0.7 x 0.5 cm. No ascites. Procedure Note Nicholas Rodriguez MD - 11/05/2024 EXAM: US ABDOMEN LIMITED LOCATION: [facility] DATE: 11/05/2024 INDICATION: Abdominal pain, nausea, and vomiting. Abnormal CT COMPARISON: CT abdomen/pelvis 11/05/2024 TECHNIQUE: Limited abdominal ultrasound. FINDINGS: GALLBLADDER: Concentric gallbladder wall thickening measuring up to 0.4cm. Trace pericholecystic fluid. Few tiny gallstones in the gallbladder.Negative sonographic Fernández's sign. BILE DUCTS: No biliary dilatation. The common duct measures 5 mm. LIVER: Normal parenchyma with smooth contour. No focal mass. The mainportal vein is patent with hepatopedal flow. RIGHT KIDNEY: No hydronephrosis. PANCREAS: Hypoechoic lesion of the pancreatic body measuring 1.1 x 0.7 x0.5 cm. No ascites. IMPRESSION: 1. Cholelithiasis, gallbladder wall thickening, and trace pericholecysticfluid, suspicious for acute cholecystitis. However, negative sonographicMurphy's sign. If confirmation is warranted, consider HIDA. 2. Hypoechoic pancreatic lesion measuring 1.1 cm, corresponding with CTfindings. Consider nonemergent contrast-enhanced MRI/MRCP as suggested onCT report. [Consider Follow Up: 1.1 cm pancreatic lesion] This report will be copied to the [facility] to ensure aprovider acknowledges the finding. us Daniel Paez MD IMG US ORDERABLES Final Result * Abd/pelvis CT, IV contrast only TRAUMA / AAA (11/05/2024 5:54 PM PLATEMAKER) Anatomical Region Laterality Modality Abdomen/Pelvis, SUBRAD CT MUNIRA DY, UMP CT ABDOMEN PELVIS, RAD CT Computed Tomography 11/05/2024 5:54 PM PLATEMAKER Impressions 11/05/2024 6:15 PM PLATEMAKER IMPRESSION: 1. Diffuse gallbladder wall thickening/edema. The differential includes reactive changes to hepatitis, fluid overload, and cholecystitis. No calcified gallstones or biliary ductal dilation. Recommend further evaluation with ultrasound. 2. No other acute abnormality. 3. 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 Recommend further evaluation with a nonemergent contrast-enhanced MRCP. 4. Distal colonic diverticulosis. No inflamed diverticuli. 5. Right uterine fundal fibroid (3.9 cm). Narrative 11/05/2024 6:15 PM PLATEMAKER EXAM: CT ABDOMEN PELVIS W CONTRAST LOCATION: [facility] DATE: 11/05/2024 INDICATION: Abdominal pain. Nausea, vomiting. COMPARISON: CT abdomen pelvis 09/18/2021. TECHNIQUE: CT scan of the abdomen and pelvis was performed following injection of IV contrast. Multiplanar reformats were obtained. Dose reduction techniques were used. CONTRAST: 98 mL Isovue 370 FINDINGS: LOWER CHEST: Slightly elevated left hemidiaphragm with adjacent left basilar atelectasis. Coronary arterial calcifications. HEPATOBILIARY: Diffuse gallbladder wall thickening/edema. No calcified gallstones. No biliary ductal dilation. No liver lesions. PANCREAS: Hypodense 1.0 cm lesion within the anterior pancreatic body (2/#64) has not significantly changed. No ductal dilation. SPLEEN: Normal. ADRENAL GLANDS: Normal. KIDNEYS/BLADDER: Normal. BOWEL: No bowel obstruction or inflammation. Appendix is absent. Scattered noninflamed descending and sigmoid colonic diverticuli. LYMPH NODES: No enlarged lymph nodes. VASCULATURE: Patent portal, splenic, and superior mesenteric veins. No abdominal aortic aneurysm. PELVIC ORGANS: 3.9 cm right uterine fundal fibroid. No adnexal mass. MUSCULOSKELETAL: Status post ventral abdominal wall hernia repair. Tiny fat-containing periumbilical hernia. Multilevel degenerative changes of the spine. No acute bony abnormality. Procedure Note Preet Martinez MD - 11/05/2024 EXAM: CT ABDOMEN PELVIS W CONTRAST LOCATION: [facility] DATE: 11/05/2024 INDICATION: Abdominal pain. Nausea, vomiting. COMPARISON: CT abdomen pelvis 09/18/2021. TECHNIQUE: CT scan of the abdomen and pelvis was performed followinginjection of IV contrast. Multiplanar reformats were obtained. Dosereduction techniques were used. CONTRAST: 98 mL Isovue 370 FINDINGS: LOWER CHEST: Slightly elevated left hemidiaphragm with adjacent leftbasilar atelectasis. Coronary arterial calcifications. HEPATOBILIARY: Diffuse gallbladder wall thickening/edema. No calcifiedgallstones. No biliary ductal dilation. No liver lesions. PANCREAS: Hypodense 1.0 cm lesion within the anterior pancreatic body(2/#64) has not significantly changed. No ductal dilation. SPLEEN: Normal. ADRENAL GLANDS: Normal. KIDNEYS/BLADDER: Normal. BOWEL: No bowel obstruction or inflammation. Appendix is absent. Scatterednoninflamed descending and sigmoid colonic diverticuli. LYMPH NODES: No enlarged lymph nodes. VASCULATURE: Patent portal, splenic, and superior mesenteric veins. Noabdominal aortic aneurysm. PELVIC ORGANS: 3.9 cm right uterine fundal fibroid. No adnexal mass. MUSCULOSKELETAL: Status post ventral abdominal wall hernia repair. Tinyfat- containing periumbilical hernia. Multilevel degenerative changes ofthe spine. No acute bony abnormality. IMPRESSION: 1. Diffuse gallbladder wall thickening/edema. The differential includesreactive changes to hepatitis, fluid overload, and cholecystitis. Nocalcified gallstones or biliary ductal dilation. Recommend furtherevaluation with ultrasound. 2. No other acute abnormality. 3. 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 4. Distal colonic diverticulosis. No inflamed diverticuli. 5. Right uterine fundal fibroid (3.9 cm). Daniel Paez MD IMG CT ORDERABLES Final Result * HCG qualitative urine (11/05/2024 12:34 PM PLATEMAKER) hCG Urine Qualitative Negative Negative PAULINA 11/05/2024 12:49 PM PLATEMAKER LABORATORY Comment:This test is for scr eening purposes. Results should be interpreted along with the clinical picture. Confirmation testing is available if warranted by ordering [id number], HCG Quantitative . Urine URINE SPECIMEN OBTAINED BY CLEAN CATCH PROCEDURE / Unknown Non-blood Collection / Unknown 11/05/2024 12:34 PM PLATEMAKER 11/05/2024 12:40 PM PLATEMAKER Daniel Paez MD LAB - URINE ORDERABLES Final Result [facility] Acute Care Lab [address] Lab (1st floor, no room number) [place] [address], [facility] * (ABNORMAL) UA with Microscopic reflex to Culture (11/05/2024 12:34 PM PLATEMAKER) Color Urine Light Yellow Colorless, Straw, Light Yellow, Yellow 11/05/2024 12:55 PM PLATEMAKER LABORATORY Appearance Urine Clear Clear 11/05/20 12:55 PM PLATEMAKER LABORATORY Glucose Urine Negative Negative mg/dL 11/05/2024 12:55 PM PLATEMAKER LABORATORY Bilirubin Urine Negative Negative 12:55 PM PLATEMAKER LABORATORY Ketones Urine Negative Negative mg/dL 11/05/2024 12:55 PM PLATEMAKER LABORATORY Specific [place] Urine 1.024 1.003 - 1.035 11/05/2024 12:55 PM PLATEMAKER LABORATORY Blood Urine Negative Negative 11/05/2024 12:55 PM PLATEMAKER LABORATORY pH Urine 6.5 5.0 - 7.0 11/05/2024 12:55 PM PLATEMAKER LABORATORY Protein Albumin Urine 50(A) Negative mg/dL 11/05/2024 12:55 PM PLATEMAKER LABORATORY Urobilinogen Urine Normal Normal, 2.0 mg/dL 11/05/2024 12:55 PM PLATEMAKER LABORATORY Nitrite Urine Negative Negative 11/05/2024 12:55 PM PLATEMAKER LABORATORY Leukocyte Esterase Urine Negative Negative 11/05/2024 12:55 PM PLATEMAKER LABORATORY Mucus Urine Present(A) None Seen /LPF 11/05/2024 12:55 PM PLATEMAKER LABORATORY RBC Urine 4(H) <=2 /HPF 11/05/2024 12:55 PM PLATEMAKER LABORATORY WBC Urine 1 <=5 /HPF 11/05/2024 12:55 PM PLATEMAKER LABORATORY Urine URINE SPECIMEN OBTAINED BY CLEAN CATCH PROCEDURE / Unknown Non-blood Collection / Unknown 11/05/2024 12:34 PM PLATEMAKER 11/05/2024 12:40 PM PLATEMAKER Narrative LABORATORY - 11/05/2024 12:55 PM PLATEMAKER Urine Culture not indicated us Daniel Paez MD LAB - URINE ORDERABLES Final Result LABORATORY [facility] Acute Care Lab [address] Lab (1st floor, no room number) [place] [address], [facility] * Extra Red Top Tube (11/05/2024 12:15 PM PLATEMAKER) Hold Specimen [facility] 11/05/2024 1:31 PM PLATEMAKER LABORATORY Blood STRUCTURE OF RIGHT UPPER LIMB / Unknown Venipuncture / Unknown 11/05/2024 12:15 PM PLATEMAKER 11/05/2024 12:29 PM PLATEMAKER Daniel Paez MD LAB - BLOOD ORDERABLES Final Result [facility] [address] Lab (1st floor, no room number) [place] [address], [place] * Extra Blue Top Tube (11/05/2024 12:15 PM PLATEMAKER) Hold Specimen [facility] 11/05/2024 1:31 PM PLATEMAKER LABORATORY Blood STRUCTURE OF RIGHT UPPER LIMB / Unknown Venipuncture / Unknown 11/05/2024 12:15 PM PLATEMAKER 11/05/2024 12:29 PM PLATEMAKER Daniel Paez MD LAB - BLOOD ORDERABLES Final Result Performing Organization Address [facility]/ZIP Co de Phone Number [facility] Lab [address] Lab (1st floor, no room number) [place] [phone] * (ABNORMAL) Hemoglobin A1c (11/05/2024 12:15 PM PLATEMAKER) Estimated Average Glucose 148(H) <117 mg/dL 11/05/2024 10:56 PM PLATEMAKER LABORATORY Hemoglobin A1C 6.8(H) <5.7 % 11/05/2024 10:56 PM PLATEMAKER LABORATORY Comment: Normal <5.7% Prediabetes 5.7-6.4% Diabetes 6.5% or higher Note: Adopted from ADA consensus guidelines. Blood STRUCTURE OF RIGHT UPPER LIMB / Unknown Venipuncture / Unknown 11/05/2024 12:15 PM PLATEMAKER 11/05/2024 12:29 PM PLATEMAKER Dc Colmenares MD LAB - BLOOD ORDERA BLES Final Result [facility] [address] Lab (1st floor, no room number) [place] [phone] * Mammogram - HIM Scan (08/20/2018) Anatomical Region Laterality Modality Other Narrative 08/20/2018 Result Impression There is no radiographic evidence for malignancy. Recommend annual mammograms. A lay language report of this examination will be provided to the patient. MAMMOGRAM ASSESSMENT: ACR 1 Negative Other Result Information Result Narrative XR MAMMO BILAT SCREENING [[id number]] CLINICAL HISTORY: This is an asymptomatic 57 y.o. patient. INDICATION FOR EXAM: Mammogram Screening. TECHNIQUE: CC & MLO views were obtained. This digital study was evaluated with the assistance of Computer-Aided Detection. COMPARISON FILM: Yes 06/05/17 UTD [facility] 03/22/16 CTD [facility] FINDINGS: Mammographically, the breast tissue has scattered fibroglandular densities. There are no dominant masses, suspicious micro calcifications or areas of architectural distortion. Provider Outside IMG MAMMOGRAPHY ORDERABLES Marixa l Result * (ABNORMAL) Lipid panel reflex to direct LDL (09/21/2013 9:57 AM PLATEMAKER) Cholesterol 208(H) 0 - 200 mg/dL [facility] Comment: LDL Cholesterol is the primary guide to therapy. The NCEP recommends further evaluation of: patients with cholesterol greater than 200 mg/dL if additional risk factors are present, cholesterol greater than 240 mg/dL, triglycerides greater than 150 mg/dL, or HDL less than 40 mg/dL. Triglycerides 66 0 - 150 mg/dL [facility] HDL Cholesterol 80 50 - 110 mg/dL [facility] LDL Cholesterol Calculated 115 0 - 129 mg/dL [facility] Comment: LDL Cholesterol is the primary guide to therapy: LDL-cholesterol goal in high risk patients is <100 mg/dL and in very high risk patients is <70 mg/dL. VLDL-Cholesterol 13 0 - 30 mg/dL [facility] Cholesterol/HDL Ratio 2.6 0.0 - 5.0 [facility] Blood specimen (specimen) 09/21/2013 9:57 AM PLATEMAKER 09/21/2013 9:59 AM PLATEMAKER Toney Ang MD LAB - BLOOD ORDERABLES Final R esult [facility] [address] [place] [address] * PAP IMAGED THIN LAYER SCREEN (09/21/2013 12:00 AM PLATEMAKER) PAP ИВАН Styles Report Patient Name: LAI YOUNG MR#: [id number] Specimen #: [id number] Collected: 09/21/2013 Received: 09/22/2013 Reported: 09/23/2013 13:24 Ordering Phy(s): TONEY ANG SPECIMEN/STAIN PROCESS: Pap imaged thin layer prep screening (Surepath, FocalPoint with guided screening) Pap-Cyto x 1, Reflex HPV if ASCUS/LSIL x 1 SOURCE: Cervical, endocervical Pap imaged thin layer prep screening (Surepath, FocalPoint with guided screening) SPECIMEN ADEQUACY: Satisfactory for evaluation. -Transformation zone component absent. CYTOLOGIC INTERPRETATION: Negative for Intraepithelial Lesion or Malignancy Electronically signed out by: MORGAN Chowdary (ASCP) Processed and screened at [facility], [facility] CLINICAL HISTORY: Ablation, Previous normal pap Date of Last Pap: 09/11/12, Papanicolaou Test Limitations: Cervical cytology is a screening test with limited sensitivity; regular screening is critical for cancer prevention; Pap tests are primarily effective for the diagnosis/preventi on of squamous cell carcinoma, not adenocarcinomas or other cancers. TESTING LAB LOCATION: [address] [id number] COLLECTION SITE: Client: [facility] Location: [facility] (R) [facility] Cytologic material (specimen) 09/21/2013 09/22/2013 10:56 AM PLATEMAKER us Toney Ang MD LAB - OPTIME CLINICAL SPECIMEN Final Result [facility] * Microalbumin quantitative random urine (04/14/2013 10:30 AM CDT) Creatinine Urine 252 mg/dL [facility] Albumin Urine mg/L <5 Urine Microalbumin lowest reportable value has been changed from 2 mg/L to 5 mg/L due to a methodology change on February. mg/L [facility] Albumin Urine mg/g Cr Unable to calculate 0 - 25 mg/g Cr [facility] Urine specimen (specimen) 04/14/2013 10:30 AM CDT 04/14/2013 10:33 AM CDT us Toney Ang MD LAB - URINE ORDERABLES Final R esult [facility] [address] [place] [address] * COLONOSCOPY (03/12/2013 9:29 AM CDT) COLONOSCOPY [facility] Patient Name: Umo Udo Procedure Date: 03/12/2013 9:29:17 AM Date of : 1960 Admit Type: Outpatient Age: 52 Gender: Female Attending MD: Kenneth Cee MD Procedure: Colonoscopy Indications: Screening for colorectal malignant neoplasm Providers: Kenneth Mann MD Referring MD: Toney Ang MD Medicines: Fentanyl 100 micrograms IV, Midazolam 3 mg IV Complications: No immediate complications Procedure: Pre-Anesthesia Assessment: - Prior to the procedure, a History and Physical was performed, and patient medications and allergies were reviewed. The patient is competent. The risks and benefits of the procedure and the sedation options and risks were discussed with the patient. All questions were answered and informed consent was obtained. Patient identification and proposed procedure were verified by the physician in the pre-procedure area. Mental Status Examination: alert and oriented. Airway Examination: normal oropharyngeal airway and neck mobility. Respiratory Examination: clear to auscultation. CV Examination: normal. Prophylactic Antibiotics: The patient does not require prophylactic antibiotics. Prior Anticoagulants: The patient has taken no previous anticoagulant or antiplatelet agents. ASA Grade Assessment: I - A normal, healthy patient. After reviewing the risks and benefits, the patient was deemed in satisfactory condition to undergo the procedure. The anesthesia plan was to use moderate sedation / analgesia (conscious sedation). Immediately prior to administration of medications, the patient was re-assessed for adequacy to receive sedatives. The heart rate, respiratory rate, oxygen saturations, blood pressure, adequacy of pulmonary ventilation, and response to care were monitored throughout the procedure. The physical status of the patient was re-assessed after the procedure. After obtaining informed consent, the colonoscope was passed under direct vision. Throughout the procedure, the patient's blood pressure, pulse, and oxygen saturations were monitored continuously. The Colonoscope was introduced through the anus and advanced to the terminal ileum. The colonoscopy was performed without difficulty. The patient tolerated the procedure well. The quality of the bowel preparation was good. Findings: A sessile polyp was found in the ascending colon. The polyp was 2 mm in size. The polyp was removed with a cold biopsy forceps. Resection and retrieval were complete. A sessile polyp was found in the descending colon. The polyp was 2 mm in size. The polyp was removed with a cold biopsy forceps. Resection and retrieval were complete. Multiple small-mouthed diverticula were found in the entire colon. Impression: - One 2 mm polyp in the ascending colon. Resected and retrieved. - One 2 mm polyp in the descending colon. Resected and retrieved. - Diverticulosis entire examined colon. Recommendation: - Await pathology results. - If the pathology report reveals adenomatous tissue, then repeat the colonoscopy for surveillance in 5 years. - If the pathology report indicates hyperplastic polyp, then repeat colonoscopy for screening purposes in 10 years. Kenneth Mann M.D. ____ Kenneth Mann MD Signed Date: 03/12/2013 10:09:25 AM Number of Addenda: 0 Note Initiated On: 03/12/2013 9:29:17 AM Scope Withdrawal Time: 0 hours 14 minutes 48 seconds Scope Withdrawal Time: 0 hours 14 minutes 48 seconds Total Procedure Duration: 0 hours 20 minutes 20 seconds Total Procedure Duration: 0 hours 20 minutes 20 seconds RADIOLOGY RESULTS 03/12/2013 9:29 AM CDT Toney Ang MD PROCEDURES Final Result Performing Organization Address City/State/[facility] de Phone Number RADIOLOGY RESULTS from Last 3 Months or Most Recently Relevant to Health Maintenance Insurance [facility] [place]BS OF [place] Advance Directives For more information, please contact: [phone] * Full Code (Latest Code Status on File) Date Activated Date Inactivated Comments 11/05/2024 8:47 PM 11/07/2024 3:02 PM All basic and advanced life-sustaining interventions are performed as appropriate Question Answer Comments Code status determined by: Discussion with patie nt/ legal decision maker * Full Code Date Activated Date Inactivated Comments 04/24/2013 5:18 AM 04/29/2013 4:46 PM Care Teams Avid Editor Relationship Specialty Start Date End Date System, Provider Not In PCP - General Clinic 03/28/23 Naa Talavera MD [address] [place] [address] [address] [place], [place] [address] Urology 02/23/20 Myke Dolan MD [address] [place], [place] [phone] Assigned Surgical Provider 04/06/23
[2025-01-16 10:52] VITALS: BP 137/77; PULSE 90; RESP 16; TEMP 36.4; O2SAT 99; BMI 33.3
--- NOTE | 2025-01-16 11:47 | ED_ITS ---
HPI - General Adult General Chief complaint: Unspecified Complaint, Adult Stated complaint: pain on one side of face, sent from urgent care Time Seen by Provider: 01/16/25 11:46 History of Present Illness HPI narrative: Patient has had on and off discharge from left nostril followed by intense pain on left side of face. She has been treated with prednisone and was prescribed this yesterday, so pain is now not present. Urgent has recommended she have a CT to rule out something however patient has appointment set for next month . 64-year-old woman presenting to the emergency department with concern of left facial pain. Began again yesterday after initial occurrence in October. Was evaluated in urgent care at that time but had concurrent abdominal pain which ended up being the focus of visit. Urgent Care had recommended imaging now of her face. She can see her primary care provider for about a month. She notes that this pain was preceded with some congestion in the left nostril maybe some increased nasal discharge not clear. Has not been associated with swelling or erythema on her face. No trauma. No diplopia. Apparently had provider a concern of potentially losing her vision in this eye. She has no visual changes otherwise. No pain with eye movement. This pain does not actually come from the back of her head. When it does come as it did yesterday it is persistent until eventually seems to improve with steroids. Has had a lot of pain behind her left ear and surrounding and then progresses to pain in her face. Not complaining of headaches otherwise. In October than had cholecystectomy. She is between primary care providers as noted above. She is requesting some imaging for suspected cysts in the pancreas that were recommended to have follow-up imaging. Incidental findings when evaluated for her gallbladder she says. Related Data Home Medications ?Medication ?Instructions ?Recorded ?Confirmed methylprednisolone 4 mg tablets in mg DIRECTED 01/16/25 a dose pack Previous Rx's ?Medication ?Instructions ?Recorded amlodipine 5 mg tablet 5 mg PO QDAY #90 tabs 03/10/24 gabapentin 100 mg capsule 100 - 300 mg (1 - 3 x 100 mg) PO 03/10/24 QHS PRN nerve pain #90 caps metformin 500 mg tablet 500 mg PO QDAY #90 tabs 03/10/24 trazodone 100 mg tablet 100 mg PO QHS #90 tabs 03/10/24 atorvastatin 10 mg tablet 10 mg PO QHS #90 tabs 03/13/24 nortriptyline 25 mg capsule 25 mg PO QHS #90 caps 04/13/24 losartan 100 1 tab PO QDAY #90 tabs 08/24/24 mg-hydrochlorothiazide 25 mg tablet amoxicillin 875 mg tablet 875 mg PO BID 12 days #24 tabs 01/16/25 prednisone 20 mg tablet 40 mg (2 x 20 mg) PO DAILY 5 days 01/16/25 #10 tabs Allergies Allergy/AdvReac Type Severity Reaction Status Date / Time No Known Drug Allergies Allergy Verified 01/16/25 10:48 Review of Systems Status of ROS: Reports: 6 or more systems reviewed and unremarkable except as noted in History and below [facility] Medical History Motion sickness ?T75.3XXA - Motion sickness, initial encounter (ICD-10) Vasomotor instability ?R55 - Syncope and collapse (ICD-10) Leiomyoma of uterus ?D25.9 - Leiomyoma of uterus, unspecified (ICD-10) Surgical History History of hernia repair ?Z98.890 - Other specified postprocedural states (ICD-10) ?Z87.19 - Personal history of other diseases of the digestive system (ICD-10) History of endometrial ablation ?Z98.890 - Other specified postprocedural states (ICD-10) History of appendectomy ?Z90.49 - Acquired absence of other specified parts of digestive tract (ICD- 10) History of suburethral sling procedure ?Z98.890 - Other specified postprocedural states (ICD-10) Social History What is your current living situation?: I presently have a place to live In the past 12 months, utilities in danger of being shut off: no In past 12 months, lack of transportation kept you from medical appts, meetings, work, or getting things needed for daily living: no In the past 12 mos, have been you worried that your food would run out before you had money to buy more?: never true In the past 12 mos, the food you bought just didn't last and you didn't have money to buy more?: never true Smoking Status: Never smoker How often does anyone, including family, friends and others, physically hurt you : never How often does anyone, including family, friends and others, insult or talk down to you: never How often does anyone, including family, friends and others, threaten you with harm: never How often does anyone, including family, friends and others, scream or curse at you: never Exam Narrative: Exam Narrative: Pleasant. NAD. Skin is warm and dry. Neck is supple. No pain to palpation of the neck. Spurling's is negative. No reproduction of pain to palpation of occipital nerve area. Cranial nerves 2-12 intact. Extraocular movements are full. Pupils are equal and brisk. Face is without swelling or erythema or tenderness. No TMJ area pain. TMs are clear. Moving all extremities without difficulty with good strength. Abdomen soft and minimally tender in the epigastrium. Heart in regular rate and rhythm. Const: Vital Signs, click to edit/add: Vital Signs - 24 hr 01/16/25 10:52 Temperature 97.5 F L Pulse Rate [Pulse Oximeter] 90 Respiratory Rate 16 Blood Pressure [Ri ght Upper Arm] 137/77 Pulse Oximetry 99 Documenting provider has reviewed patient's vital signs: yes Course Vital Signs Vital signs: Initial Vital Signs Temperature 97.5 F L 01/16/25 10:52 Temperature Source Temporal Artery Scan 01/16/25 10:52 Pulse Rate 90 01/16/25 10:52 Respiratory Rate 16 01/16/25 10:52 Blood Pressure 137/77 01/16/25 10:52 Blood Pressure Mean 97 01/16/25 10:52 Pulse Oximetry 99 01/16/25 10:52 Vital Signs Temperature 97.5 F L 01/16/25 10:52 Pulse Rate 90 01/16/25 10:52 Respiratory Rate 16 01/16/25 10:52 Blood Pressure 137/77 01/16/25 10:52 Pulse Oximetry 99 01/16/25 10:52 Temperature 97.5 F L 01/16/25 10:52 Pulse Rate 90 01/16/25 10:52 Respiratory Rate 16 01/16/25 10:52 Blood Pressure 137/77 01/16/25 10:52 Pulse Oximetry 99 01/16/25 10:52 Medical Decision Making MDM Narrative Medical decision making narrative: Differential includes mastoiditis, sinusitis/sinus disease/sinus infection, trigeminal neuralgia, occipital headache, periorbital headache/migraine. Sounds like she is taking a Medrol Dosepak currently. Would consider imaging of abdomen for convenience but I would like to try to get more information 1st. She is relieved for consideration. Requesting head and sinus CT. I do independently review these images. Appears to have opacification of left maxillary and ethmoid sinuses. I do think that sinus disease is a reasonable explanation of this recurrent facial pain she has been having. INDICATION: Left-sided facial pain. COMPARISON: None. TECHNIQUE: Noncontrast CT of the paranasal sinuses. FINDINGS: No facial fractures. Specifically, the nasal bones, zygomatic arches and bony orbits are intact. No mandibular fractures. Normal articulation at the bilateral temporomandibular joints. Complete opacification of the left maxillary sinus with thickening and sclerosis of the m maxillary axis sinus cavity christiansen. Similarly, there is opacification of the left ethmoid air cells. Remaining visualized paranasal sinuses and mastoid air cells are clear. Normal orbits bilaterally. IMPRESSION: 1. Acute on chronic left maxillary sinusitis. 2. Opacification of left ethmoid air cells. 3. No facial fracture INDICATION: Headaches. COMPARISON: None. TECHNIQUE: Noncontrast CT head. FINDINGS: Normal brain parenchymal morphology. No acute intracranial hemorrhage, acute infarct, mass effect, or fracture. No midline shift. No abnormal ventricular dilatation. Incidental lipoma of the corpus callosum. Normal calvarium and skull base. Visualized mastoid air cells are clear. Opacification of partially visualized left mastoid sinus and left-sided ethmoid air cells. Remaining visualized paranasal sinuses are clear. IMPRESSION: 1. No acute intracranial abnormality. 2. Incidental lipoma of the corpus callosum. 3. Left-sided sinusitis I did discuss all imaging findings with Ms. Chavez Was able to also to locate records of imaging around cholecystectomy. 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 I did convey this information. She was reassured. Further characterization was to be done with MRI imaging which is not available at this time in our ER regardless. She does not feel she needs any intervention/treatment currently. Generally stay well-hydrated. Consider sleeping under the mist of a cool mist humidifier. Can take up to 800 mg of ibuprofen or up to 1000 mg of acetaminophen per dose. I expect you to improve from this episode. Might follow-up with ENT, locally Dr. Marinelli if this continues to be an issue. Can continue your current steroid, what sounds like Medrol Dosepak. I have also sent in a prescription of prednisone that you might prefer to take now or have available in the future. Would recommend pseudoephedrine for decongestion; I like the 12 hour formulation myself. Sending an also course of amoxicillin. The apparant cyst in your pancreas has been present, sounds like, unchanged for a few years. I would follow-up with your new primary care provider with recommendations for further evaluation as necessary. Medical Records Medical records reviewed: Yes I reviewed the patient's medical records Discharge Plan Discharge Clinical Impression: Sinusitis, Facial pain, Pancreatic cyst Patient Disposition: Home, Self-Care Condition: Stable Instructions: Sinusitis (ED) Additional Instructions: Generally stay well-hydrated. Consider sleeping under the mist of a cool mist humidifier. Can take up to 800 mg of ibuprofen or up to 1000 mg of acetaminophen per dose. I expect you to improve from this episode. Might follow-up with ENT, locally Dr. Marinelli if this continues to be an issue. Can continue your current steroid, what sounds like Medrol Dosepak. I have also sent in a prescription of prednisone that you might prefer to take now or have available in the future. Would recommend pseudoephedrine for decongestion; I like the 12 hour formulation myself. Sending an also course of amoxicillin. The appearant cyst in your pancreas has been present, sounds like, unchanged for a few years. I would follow-up with your new primary care provider with recommendations for further evaluation as necessary. Prescriptions: New amoxicillin 875 mg tablet 875 mg PO BID 12 Days Qty: 24 0RF prednisone 20 mg tablet 40 mg PO DAILY 5 Days Qty: 10 0RF No Action trazodone 100 mg tablet 100 mg PO QHS Qty: 90 4RF gabapentin 100 mg capsule 100 - 300 mg PO QHS PRN (Reason: nerve pain) Qty: 90 4RF amlodipine 5 mg tablet 5 mg PO QDAY Qty: 90 3RF metformin 500 mg tablet 500 mg PO QDAY Qty: 90 3RF nortriptyline 25 mg capsule 25 mg PO QHS Qty: 90 3RF methylprednisolone 4 mg tablets,dose pack DIRECTED atorvastatin 10 mg tablet 10 mg PO QHS Qty: 90 3RF losartan-hydrochlorothiazide 100-25 mg tablet 1 tab PO QDAY Qty: 90 1RF Follow Up/Referrals: Tonya Rodriguez MD [Primary Care Provider] - Stand Alone Forms: Next New Network[employer] Info Instructions
--- OUTSIDE RECORDS SUMMARY | 2025-01-16 12:10 | XMS_ITS | Encounter Summary ---
Author Organization [facility] Address [address] [place] [address] Care Team Providers Care General I Farmworker Name Role Phone Germaine Pena MD Primary Care Provider Max Andrews MD Primary Care Provider [phone] Toeny Escobar MD Primary Care Provider [phone] Tereza Centeno MD Primary Care Provider Unav [facility] Primary Care Provider + Naa Talavera MD Unavailable [phone] Naa Talavera MD Unavailable [phone] Tonya Acuña PA-C Unavailable [phone] Minerva Rico PA-C Unavailable [phone] Naa Talavera MD Unavailable [phone] Lucian Villegas MD Unavailable [phone] Rhianna Bravo MD Primary Care Provider [phone] System, Provider Not In Primary Care Provider Un available Myke Dolan MD Unavailable [phone] Encounter Details Date Type Department Care Team (Late st Contact Info) Description 02/17/2006 MyC Medical Advice [facility] [address] [place] [address] Tammy Dave MD [place] [address] Social History Tobacco Use Types Packs/Day Years Used Date Smoking Tobacco: Never Alcohol Use Standard Drinks/Week Comments Yes 0 (1 standard drink = 0.6 oz pur e alcohol) occasionally Comments No Sex and Gender Information Value Date Recorded Sex Assigned at Female 09/09/2021 6:11 AM CDT Legal Sex Female 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 Gender Identity Female 09/09/2021 6:11 AM CDT Sexual Orientation Straight 09/09/2021 6: 11 AM CDT Occupation Industry Job Start Date Job End Date home for now Not on file Not on file Not on file documented as of this encounter Plan of Treatment Upcoming Encounters Date Type Department Care Team (Late st Contact Info) Description 01/21/2025 12:00 PM CDT Office Visit [address] [address] Myke Dolan MD [address] [place] [address] documented as of this encounter Visit Diagnoses Not on filedocumented in this encounter Care Teams General I Farmworker Relationship Specialty Start Date End Date Germaine Pena MD PCP - General 11/18/03 10/22/12 Max Andrews MD [address] [place] [address] PCP - General Family Practice 10/23/12 02/25/13 [place] [address] [place] [address] PCP - General Family Practice 02/26/13 02/04/14 [place] [address] [place] [address] PCP - General Family Practice 02/05/14 09/25/17 [facility] PCP - General Family Practice 09/26/17 11/21/21 [place] [address] [place] [address] PCP - General Family Medicine 11/22/21 03/27/23 System, Provider Not In PCP - General Clinic 03/28/23 Naa Talavera MD [address] [place] [address] Urology 02/23/20 Naa Talavera MD [address] [place] [address] [id number] Assigned Surgical Provider 09/02/20 01/24/21 Tonya Acuña PA-C [address] [place] [address] Assigned Surgical Provider 01/25/21 03/11/21 Minerva Rico PA-C [address] [address] Assigned OBGYN Provider 01/25/21 Naa Talavera MD [address] [place] [id number] Assigned Surgical Provider 03/12/21 09/16/21 Lucian Villegas MD [address] [address] Assigned Surgical Provider 09/17/21 03/29/23 Myke Dolan MD [address] [place], [place] 742722 Assigned Surgical Provider 04/06/23 documented as of this encounter
--- OUTSIDE RECORDS SUMMARY | 2025-01-16 12:10 | XMS_ITS | Encounter Summary ---
Author Organization [facility] Address [address] [facility] [place] [address] Care Team Providers Care Center Line Cutter Operator Name Role Phone [facility] Primary Care Provider + Naa Talavera MD Unavailable [phone] Tonya Acuña PA-C Unavailable Minerva Rico PA-C Unavailable Naa Talavera MD Unavailable Lucian Villegas MD Unavailable [phone] Rhianna Bravo MD Primary Care Provider [phone] System, Provider Not In Primary Care Provider Un available Myke Dolan MD Unavailable Reason for Visit * Reason Onset Date Comments Call Back 03/02/2021 11:00 telephone visit today Encounter Details Date Type Department Care Team (Late st Contact Info) Description 03/02/2021 Telephone 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 Gender Identity Female 09/09/2021 6:11 AM CDT [...] Karel Mcknight - 03/02/2021 3:00 PM CDT [facility] Phone Message May a detailed message be [...] Upcoming Encounters Date Type Department Care Team ([facility] Contact Info) Description 01/21/2025 12:00 PM CDT Office Visit [place] [id number] [facility] [place] [place] [phone] Myke Dolan MD [address] [place], [place] 86[address] documented as of this encounter Visit Diagnoses Not on filedocumented in this encounter Care Teams Center Line Cutter Operator Relationship Specialty Start Date End Date [facility] PCP - General Family Practice 09/26/17 11/21/21 [place] [address] [place], [place] [id number] PCP - General Family Medicine 11/22/21 03/27/23 System, Provider Not In PCP - General Clinic 03/28/23 Naa Talavera MD [address] [place] [address] Urology 02/23/20 Tonya Acuña PA-C [address] [place] [address] [id number] Assigned Surgical Provider 01/25/21 03/11/21 Minerva Rico PA-C [address] [address] Assigned OBGYN Provider 01/25/21 1 Naa Talavera MD [address] [place] [address] Assigned Surgical Provider 03/12/21 09/16/21 Lucian Villegas MD [address] [facility] [address] [place] [address] Assigned Surgical Provider 09/17/21 03/29/23 Myke Dolan MD [address] [place] [address] Assigned Surgical Provider 04/06/23 documented as of this encounter
--- OUTSIDE RECORDS SUMMARY | 2025-01-16 12:10 | XMS_ITS | Encounter Summary ---
Author Organization [facility] Address [address] [place] [address] Care Team Providers Care Lead Burner Supervisor Name Role Phone Germaine Pena MD Primary Care Provider Max Andrews MD Primary Care Provider [phone] Toney Escobar MD Primary Care Provider [phone] Tereza Centeno MD Primary Care Provider Unav [facility] Primary Care Provider + Naa Talavera MD Unavailable [phone] Naa Talavera MD Unavailable [phone] Tonya Acuña PA-C Unavailable [phone] Minerva Rico PA-C Unavailable [phone] Naa Talavera MD Unavailable [phone] Lucian Villegas MD Unavailable [phone] Rhianna Bravo MD Primary Care Provider [phone] System, Provider Not In Primary Care Provider Un available Myke Dolan MD Unavailable [phone] Encounter Details Date Type Department Care Team (Late Contact Info) Description 09/04/2012 MyC Medical Advice [facility] [address] [place] [address] Irene Pedroza Social History Tobacco Use Types Packs/Day Years Used Date Smoking Tobacco: Never Smokeless Tobacco: Never Alcohol Use Standard Drinks/Week Comments Yes 0 (1 standard drink = 0.6 oz pur e alcohol) occasionally Comments No Sex and Gender Information Value Date Recorded Sex Assigned at Female 09/09/2021 6:11 AM CDT Legal 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 Gender Identity Female 09/09/2021 6:11 AM CDT Sexual Orientation Straight 09/09/2021 6: 11 AM CDT Occupation Industry Job Start Date Job End Date home for now Not on file Not on file Not on file documented as of this encounter Plan of Treatment Upcoming Encounters Date Type Department Care Team (Late Contact Info) Description 01/21/2025 12:00 PM CDT Office Visit [address] [phone] Myke Dolan MD [address] [place] [address] documented as of this encounter Visit Diagnoses Not on filedocumented in this encounter Care Teams Lead Burner Supervisor Relationship Specialty Start Date End Date Germaine Pena MD PCP - General 11/18/03 10/22/12 Max Andrews MD [address] [place] [address] PCP - General Family Practice 10/23/12 02/25/13 [place] [address] [place] [address] PCP - General Family Practice 02/26/13 02/04/14 [place] [address] [place] [address] PCP - General Family Practice 02/05/14 09/25/17 [facility] PCP - General Family Practice 09/26/17 11/21/21 [place] [address] [place] [address] PCP - General Family Medicine 11/22/21 03/27/23 System, Provider Not In PCP - General Clinic 03/28/23 Naa Talavera MD [address] [place] [address] Urology 02/23/20 Naa Talavera MD [address] [place] [address] Assigned Surgical Provider 09/02/20 01/24/21 Tonya Acuña PA-C [address] [place] [address] Assigned Surgical Provider 01/25/21 03/11/21 Minerva Rico PA-C [address] [address] Assigned OBGYN Provider 01/25/21 Naa Talavera MD [address] [place] [address] Assigned Surgical Provider 03/12/21 09/16/21 Lucian Villegas MD [address] [facility] [address] [place] [address] Assigned Surgical Provider 09/17/21 03/29/23 Myke Dolan MD [address] [place], [place] [address]92 Assigned Surgical Provider 04/06/23 documented as of this encounter
--- OUTSIDE RECORDS SUMMARY | 2025-01-16 12:10 | XMS_ITS | Clinical Summary ---
Author Organization [employer] s & [facility] Address [address] [place] [address] Care Team Providers Care Territory Business Manager Name Role Phone Rhianna Bravo MD Primary Care Provider [phone] Allergies Active Allergy Reactions Criticality Noted Date [...] daily. 30 Capsule 1 01/16/2022 7:32 PM HAND CUTTER APPRENTICE 2 Active Additional Information Patient not taking.Reported [...] Immunization Administration Dates Next Due COVID-19 vaccine ([employer] NTNuiku 30mcg/0.3mL) 12YO+ BIVALENT PF, MDV 09/17/2022 Hepatitis [...] on file Legal Sex Female 6:06 AM HAND CUTTER APPRENTICE Gender Identity Not on file Sexual Orientation [...] Description 02/22/2025 12:00 PM CDT Office Visit [facility] [address] [place] [address] [place] [address] [place], [place] [id number] Health Maintenance Due Date Last Done Comments [...] 07/04/2024 07/04/2023, 02/03/2023, 01/24/2022, Additional history exists COVID-19 vaccine series ( season) 2024 08/31/2023, 09/17/2022, 10/18/2021, Additional history exists Influenza Vaccine (#1) 2024 , 08/21/2021, 08/25/2020, Additional history exists Lipids for age 45-75 [...] care provider. XR MAMMO ANA BILAT SCREEN [[id number]] CLINICAL HISTORY: This is an asymptomatic 61 y.o. patient. INDICATION FOR EXAM: Mammogram Screening. TECHNIQUE: CC & MLO views were obtained. This study was evaluated with the assistance of Computer-Aided Detection. Breast Tomosynthesis was used in interpretation. COMPARISON FILMS: Yes 12/20/20 10/01/19 FINDINGS: The breasts have scattered areas of fibroglandular density. No suspicious masses or microcalcifications. Postoperative changes of bilateral reduction mammoplasty. . us Rhianna Bravo MD MAMMO Final Resu lt * (ABNORMAL) LIPID PANEL W REFLEX MEASURED LDL (01/24/2022 10:50 AM CDT) CHOLESTEROL,TOTAL 210(H) 100 - 199 mg/dL 01/24/2022 4:27 PM CDT [facility] TRIGLYCERIDES 65 <150 mg/dL 01/24/2022 4:27 PM CDT [facility] HDL CHOLESTEROL 81 >40 mg/dL 4:27 PM CDT [facility] NON-HDL CHOLESTEROL 129 <145 mg/dl 01/24/2022 4:27 PM CDT [facility] CHOL/HDL RATIO 2.59 <4.50 01/24/2022 4:27 PM CDT [facility] LDL CHOLESTEROL 116 <=130 mg/dL 01/24/2022 4:27 PM CDT [facility] VLDL CHOLESTEROL 13 <=30 mg/dL 01/24/2022 4:27 PM CDT [facility] PROVIDER ORDERED STATUS RANDOM 01/24/2022 4:27 PM CDT [facility] Blood BLOOD SPECIMEN / Unknown Venipuncture / Unknown 01/24/2022 10:50 AM CDT 01/24/2022 10:50 AM CDT Rhianna Bravo MD CHEMISTRY Final Resu lt Performing Organization Address City[facility]/ZIP Co de Phone Number [facility] [address] [place] [address], * ANTI HCV (01/24/2022 10:50 AM CDT) HEPATITIS C ANTIBODY Non-React mera Non-React mera 01/24/2022 11:01 PM CDT [facility] Comment:Antibodies to HCV no t detected; does not exclude the possibility of exposure to HCV. Blood BLOOD SPECIMEN / Unknown Venipuncture / Unknown 01/24/2022 10:50 AM CDT 01/24/2022 10:50 AM CDT Rhianna Bravo MD SEND OUTS Final Resu lt Performing Organization Address [facility]/ZIP Co de Phone Number [facility] [address] [place] [address], * HPV HIGH RISK (01/24/2022 10:00 AM CDT) TYPE 16 Negative Negative 01/30/2022 5:03 AM CDT [facility] TYPE 18 Negative Negative 01/30/2022 5:03 AM CDT [facility] OTHER HIGH RISK TYPES Negative Negative 01/30/2022 5:03 AM CDT [facility] Other (Cervical) Non-Blood / Unknown 01/24/2022 10:00 AM CDT 01/26/2022 8:22 AM CDT Narrative [facility] - 01/30/2022 5:03 AM CDT HPV types 16, 18, 31, 33, 35, 39, 45, 51, 52, 56, 58, 59, 66 and 68 DNA were undetectable or below the pre-set threshold. Methodology: Bam Thu 4800 HPV Test us Rhianna Bravo MD MICROBIOLOGY Final Resu lt [facility] [address] [place] [address], [place] * SCAN-COLONOSCOPY (06/09/2018 12:00 AM CDT) us Scanner OTHER Final Result from Last 3 Months or Most Recently Relevant to Health Maintenance Insurance MEDICA CHOICE Care Teams Territory Business Manager Relationship Specialty [place] [address] [place] [address] PCP - General Family Practice 01/23/22
--- OUTSIDE RECORDS SUMMARY | 2025-01-16 12:10 | XMS_ITS | Encounter Summary ---
Author Organization [place] Address [address] [place] [address] Care Team Providers Care Chalker Soles Name Role Phone Germaine Pena MD Primary Care Provider Max Andrews MD Primary Care Provider [phone] Toney Escobar MD Primary Care Provider [phone] Tereza Centeno MD Primary Care Provider Unav [facility] Primary Care Provider + Naa Talavera MD Unavailable [phone] Naa Talavera MD Unavailable [phone] Tonya Acuña PA-C Unavailable [phone] Minerva Rico PA-C Unavailable [phone] Naa Talavera MD Unavailable [phone] Lucian Villegas MD Unavailable [phone] Rhianna Bravo MD Primary Care Provider [phone] System, Provider Not In Primary Care Provider Un available Myke Dolan MD Unavailable [phone] Encounter Details Date Type Department Care Team (Late Contact Info) Description 07/27/2006 [facility] Medical Advice [address] [address] Germaine Pena MD [address] [place] [address] Social History Tobacco Use Types Packs/Day Years Used Date Smoking Tobacco: Never Alcohol Use Standard Drinks/Week Comments Yes 0 (1 standard drink = 0.6 oz pur e alcohol) occasionally Comments No Sex and Gender Information Value Date Recorded Sex Assigned at Female 09/09/2021 6:11 AM CDT Legal 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 Gender Identity Female 09/09/2021 6:11 AM CDT Sexual Orientation Straight 09/09/2021 6: 11 AM CDT Occupation Industry Job Start Date Job End Date home for now Not on file Not on file Not on file documented as of this encounter Plan of Treatment Upcoming Encounters Date Type Department Care Team (Late Contact Info) Description 01/21/2025 12:00 PM CDT Office Visit [address] [address] Myke Dolan MD [address] [place] [address] documented as of this encounter Visit Diagnoses Not on filedocumented in this encounter Care Teams Chalker Soles Relationship Specialty Start Date End Date Germaine Pena MD PCP - General 11/18/03 10/22/12 Max Andrews MD [address] [place] [address] PCP - General Family Practice 10/23/12 02/25/13 [place] [address] [place] [address] PCP - General Family Practice 02/26/13 02/04/14 [place] [address] [place] [address] PCP - General Family Practice 02/05/14 09/25/17 [facility] PCP - General Family Practice 09/26/17 11/21/21 [place] [address] [place] [address] PCP - General Family Medicine 11/22/21 03/27/23 System, Provider Not In PCP - General Clinic 03/28/23 Naa Talavera MD [address] [place] [id number] Urology 02/23/20 Naa Talavera MD [address] [place] [address] [id number] Assigned Surgical Provider 09/02/20 01/24/21 Tonya Acuña PA-C 9 [place], [place] 135815 Assigned Surgical Provider 01/25/21 03/11/21 Minerva Rico PA-C [address] [address] Assigned OBGYN Provider 01/25/21 5 1 Naa Talavera MD [address] [place] [address] 346945 Assigned Surgical Provider 03/12/21 09/16/21 Lucian Villegas MD [address] [address] Assigned Surgical Provider 09/17/21 03/29/23 Myke Dolan MD [address] [place] [address] Assigned Surgical Provider 04/06/23 documented as of this encounter
--- OUTSIDE RECORDS SUMMARY | 2025-01-16 12:10 | XMS_ITS | Encounter Summary ---
Author Organization [place] Address [address] [place] [address] Care Team Providers Care Software Development Test Engineer Name Role Phone Max Andrews MD Primary Care Provider [phone] Toney Escobar MD Primary Care Provider [phone] Tereza Centeno MD Primary Care Provider [facility] Primary Care Provider + Naa Talavera MD Unavailable [phone] Naa Talavera MD Unavailable [phone] Tonya Acuña PA-C Unavailable [phone] Minerva Rico PA-C Unavailable [phone] Naa Talavera MD Unavailable [phone] Lucian Villegas MD Unavailable [phone] Rhianna Bravo MD Primary Care Provider System, Provider Not In Primary Care Provider Un available Myke Dolan MD Unavailable [phone] Reason for Visit * Reason Onset Date Comments Health Maintenance 01/30/2013 colonoscopy s cheduled Encounter Details Date Type Department Care Team (Late st Contact Info) Description 01/30/2013 Telephone M [address] [phone] Max Andrews MD [address] [place] [address] Health Maintenance (colonoscopy scheduled) Social History Tobacco Use Types Packs/Day Years Used Date Smoking Tobacco: Never Smokeless Tobacco: Never Alcohol Use Standard Drinks/Week Comments Yes 0 (1 standard drink = 0.6 oz pur e alcohol) occasionally Comments No Sex and Gender Information Value Date Recorded Sex Assigned at Female 09/09/2021 6:11 AM CDT Legal 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 [place] [address] Please contact patient to discuss prep and additional instructions. Best phone number to use: [phone] Best time to contact the patient: Anytime during the day Thank you. documented in this encounter Plan of Treatment Upcoming Encounters Date Type Department Care Team (Late Contact Info) Description 01/21/2025 12:00 PM CDT Office Visit [address] [phone] Myke Dolan MD [address] [place] [address] documented as of this encounter Visit Diagnoses Not on filedocumented in this encounter Care Teams Software Development Test Engineer Relationship Specialty Start Date End Date Max Andrews MD [address] [place] [address] PCP - General Family Practice 10/23/12 02/25/13 [place] [address] [place] [address] PCP - General Family Practice 02/26/13 02/04/14 [place] [address] [place] [address] PCP - General Family Practice 02/05/14 09/25/17 [facility] PCP - General Family Practice 09/26/17 11/21/21 [place] [address] [place] [address] PCP - General Family Medicine 11/22/21 03/27/23 System, Provider Not In PCP - General Clinic 03/28/23 Naa Talavera MD [address] [place] [address] 624845 Urology 02/23/20 Naa Talavera MD [address] [place] [address] 396295 Assigned Surgical Provider 09/02/20 01/24/21 Tonya Acuña PA-C [address] [place] [address] Assigned Surgical Provider 01/25/21 03/11/21 Minerva Rico PA-C [address] [facility] [address] [facility] [address] [place] [address] Assigned OBGYN Provider 01/25/21 1 Naa Talavera MD [address] [facility] [address] [place], [place] 565[address] Assigned Surgical Provider 03/12/21 09/16/21 Lucian Villegas MD [address] [facility] [address] [place], [place] [address] Assigned Surgical Provider 09/17/21 03/29/23 Myke Dolan MD [address] [place], [place] [address] Assigned Surgical Provider 04/06/23 documented as of this encounter
--- OUTSIDE RECORDS SUMMARY | 2025-01-16 12:10 | XMS_ITS | Encounter Summary ---
Author Organization [place] Address [address] [facility] 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 Gender Identity Female 09/09/2021 6:11 AM CDT [...] Description 01/21/2025 12:00 PM CDT Office Visit [facility] [address] [place] [phone] [place] [address] [place] [address] 319812 documented as of this encounter Visit Diagnoses Not on filedocumented in this encounter Additional Health Concerns Assessment Noted Time PHQ-9 Depression Total Score: 5 03/09/20 21 8:22 AM CDT documented as of this encounter Care Teams Customer Orders Clerk Relationship Specialty Start Date End Date System, Provider Not In PCP - General Clinic 03/28/23 Naa Talavera MD [address] [place] [address] [address] [place] [address] Urology 02/23/20 [place] [address] [place] [address] Assigned Surgical Provider 04/06/23 documented as of this encounter
--- OUTSIDE RECORDS SUMMARY | 2025-01-16 12:10 | XMS_ITS | Encounter Summary ---
Author Organization [place] Address [address] [facility] 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 [address] [place] [phone] Myke Dolan MD [address] [place] [address] documented as of this encounter Visit Diagnoses Not on filedocumented in this encounter Additional Health Concerns Assessment Noted Time PHQ-9 Depression Total Score: 5 03/09/20 21 8:22 AM CDT documented as of this encounter Care Teams Solar Energy Engineer Relationship Specialty Start Date End Date System, Provider Not In PCP - General Clinic 03/28/23 Naa Talavera MD [address] [place] [address] [address] [place] [address] Urology 02/23/20 Myke Dolan MD [address] [place] [address] Assigned Surgical Provider 04/06/23 documented as of this encounter
--- OUTSIDE RECORDS SUMMARY | 2025-01-16 12:10 | XMS_ITS | Clinical Summary ---
Author Organization [facility] Address [address] [place] [address] Care Team Providers Care Supervisor Production Department Name Role Phone Tereza Centeno MD Primary Care Provider [phone] Source Comments You are receiving this document as you are listed as the primary care provider,follow-up provider, or the patient has been referred to you for consultation.This is in compliance with the Medicare and[facility] Hospital[facility]id EHR Incentive Program,which states Providers who transition their patient to another setting of careor provider of care or refers their patient to another provider of care shouldprovide summary care record for each transition of care or referral. [facility] Allergies Active Allergy Reactions Criticality Noted Date Comments Dog Epithelium (Canis Lupus Familiaris) Other, see comments 12/30/2020 Molds & Smuts Other, see comments 12/13/2003 Other Other, see comments, Runny Nose 12/13/2003 Medications [place]-3 Fatty Acids 1200 MG 2 Caps two [...] dy Positive 06/24/2001 IPV (Polio) 07/28/2024,06/04/2023,06/01/2002 Influenza ([place] Only) (Flul aval Quad 0.5, 3+ yrs) 08/25/2020,09/04/2019,08/12/2017,2014,08/27/2014 Influenza (Flucelvax), Prese rv Free QIV 08/31/2023 Influenza (Fluzone 0.25, 6-35 mos) 08/14/2018 Influenza D5F1-46 10/20/2009 Influenza IIV4 (Quadrivalent ) 0.5mL (89697) 09/17/2022,08/21/2021,09/21/2013 Influenza ccIIV3 6 months+ (Flucelvax) 07/28/2024 [...] Comments Blood Pressure 127/88 12/06/2014 8:44 AM PURSE MAKER Pulse 71 12/06/2014 8:44 AM PURSE MAKER Temperature 35.9 C (96.6 F) 12/06/2014 8:44 AM PURSE MAKER Respiratory Rate 16 02/01/2014 9:40 AM CDT Oxygen Saturation - - Inhaled Oxygen Concentration - - Weight 97.1 kg (214 lb) 12/06/2014 8:44 AM PURSE MAKER Height 164.1 cm (5' 4.6) 12/06/2014 8:44 AM PURSE MAKER Body Mass Index 36.05 12/06/2014 8:44 AM PURSE MAKER Plan of Treatment Health Maintenance Due Date Last Done Comments Colon Cancer Screening Plan Due 1962 Hep C Screening (Preventive Services) 1962 Hep B Screening (AGLOGIC Wizard) 1963 HIV Screening (Preventive Services) 1978 [...] BILAT W CAD Routine 12/07/2014 9:21 AM PURSE MAKER LIPID PANEL & DIRECT LDL (IF NEEDED) Routine 12/06/2014 9:03 AM PURSE MAKER Screening cholesterol level from Last 3 Months or Most Recently Relevant to Health Maintenance Results * MAMMOGRAM SCREENING BILATERAL (12/07/2014 9:21 AM PURSE MAKER) Anatomical Region Laterality Modality Breast Bilateral Mammography 12/07/2014 9:21 AM PURSE MAKER Narrative 12/08/2014 2:18 PM PURSE MAKER MAMMOGRAM SCREENING W/CAD BILAT: 12/07/2014 9:21 AM [...] AND DIRECT LDL(IF NEEDED) (12/06/2014 9:03 AM PURSE MAKER) Hours Fasting 12 hours [facility] Cholesterol 212(H) 0 - 199 mg/dl [facility] Triglyceride 100 0 - 149 mg/dl [facility] HDL 66 >40 mg/dl [facility] LDL, Calc. 126 0 - 129 mg/dl [facility] Non HDL Chol, Calc 146 mg/dl [facility] 12/06/2014 9:03 AM PURSE MAKER 12/06/2014 9:04 AM PURSE MAKER Narrative [facility] - 12/06/2014 5:32 PM PURSE MAKER Performed at [facility], [address] [place] [address] us Tereza Centeno MD LAB_1 Final Resul t [facility] [phone] from Last 3 Months or Most Recently Relevant to Health Maintenance Insurance MEDICA CHOICE Care Teams Supervisor Production Department Relationship Specialty [place] [address] [place] [address] PCP - General Family Practice 01/27/14
--- OUTSIDE RECORDS SUMMARY | 2025-01-16 12:11 | XMS_ITS | Encounter Summary ---
Author Organization [place] Address [address] [place] [address] Care Team Providers Care Materials Scientist Name Role Phone Germaine Pena MD Primary Care Provider Max Andrews MD Primary Care Provider [phone] Toney Escobar MD Primary Care Provider [phone] Tereza Centeno MD Primary Care Provider Unav [facility] Primary Care Provider + Naa Talavera MD Unavailable [phone] Naa Talavera MD Unavailable [phone] Tonya Acuña PA-C Unavailable [phone] Minerva Rico PA-C Unavailable [phone] Naa Talavera MD Unavailable [phone] Lucian Villegas MD Unavailable [phone] Rhianna Bravo MD Primary Care Provider [phone] System, Provider Not In Primary Care Provider Un available Myke Dolan MD Unavailable [phone] Encounter Details Date Type Department Care Team (Late Contact Info) Description 04/22/2008 [facility] Medical Advice [address] [place] [phone] Irene Pedroza Social History Tobacco Use Types Packs/Day Years Used Date Smoking Tobacco: Never Alcohol Use Standard Drinks/Week Comments Yes 0 (1 standard drink = 0.6 oz pur e alcohol) occasionally Comments No Sex and Gender Information Value Date Recorded Sex Assigned at Female 09/09/2021 6:11 AM CDT Legal Sex Female 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 Gender Identity Female 09/09/2021 6:11 AM CDT Sexual Orientation Straight 09/09/2021 6: 11 AM CDT Occupation Industry Job Start Date Job End Date home for now Not on file Not on file Not on file documented as of this encounter Plan of Treatment Upcoming Encounters Date Type Department Care Team (Late Contact Info) Description 01/21/2025 12:00 PM CDT Office Visit [address] [phone] Myke Dolan MD [address] [place] [address] documented as of this encounter Visit Diagnoses Not on filedocumented in this encounter Care Teams Materials Scientist Relationship Specialty Start Date End Date Germaine Pena MD PCP - General 11/18/03 10/22/12 Max Andrews MD [address] [place] [address] PCP - General Family Practice 10/23/12 02/25/13 [place] [address] [place] [address] PCP - General Family Practice 02/26/13 02/04/14 [place] [address] [place] [address] PCP - General Family Practice 02/05/14 09/25/17 [facility] PCP - General Family Practice 09/26/17 11/21/21 [place] [address] [address] [place], [place] [id number] PCP - General Family Medicine 11/22/21 03/27/23 System, Provider Not In PCP - General Clinic 03/28/23 Naa Talavera MD [address] [place] [address] Urology 02/23/20 Naa Talavera MD [address] [place] [address] Assigned Surgical Provider 09/02/20 01/24/21 Tonya Acuña PA-C [address] [place] [address] Assigned Surgical Provider 01/25/21 03/11/21 Minerva Rico PA-C [address] [address] Assigned OBGYN Provider 01/25/21 Naa Talavera MD [address] [place] [address] Assigned Surgical Provider 03/12/21 09/16/21 Lucian Villegas MD [address] [facility] [address] [place] [address] Assigned Surgical Provider 09/17/21 03/29/23 Myke Dolan MD [address] [place] [address] Assigned Surgical Provider 04/06/23 documented as of this encounter
--- OUTSIDE RECORDS SUMMARY | 2025-01-16 12:11 | XMS_ITS | Encounter Summary ---
Author Organization [place] Address [facility] [place] [address] Care Team Providers Care University Relations Recruiter Name Role Phone Naa Talavera MD Unavailable [phone] System, Provider Not In Primary Care Provider Un available Myke Dolan MD Unavailable [phone] Encounter Details Date Type Department Care Team (Late st Contact Info) Description 06/23/2024 [place] [facility] Advice [facility] 3rd Flr [address] [place] [address] Claire Pedrozaview Social History Tobacco Use Types [...] AM CDT Legal Sex Female 3:25 AM DIRECTOR NURSING SERVICE Gender Identity Female 09/09/2021 6:11 AM CDT Sexual Orientation Straight 09/09/2021 6: 11 AM CDT Occupation Industry Job Start Date Job End Date home for now Not on file Not on file Not on file documented as of this encounter Plan of Treatment Upcoming Encounters Date Type Department Care Team (Late st Contact Info) Description 01/21/2025 12:00 PM CDT Office Visit [facility] [address] [place] [phone] Myke Dolan MD [address] [place] [address] documented as of this encounter Visit Diagnoses Not on filedocumented in this encounter Additional Health Concerns Assessment Noted Time PHQ-9 Depression Total Score: 5 03/09/20 21 8:22 AM CDT documented as of this encounter Care Teams University Relations Recruiter Relationship Specialty Start Date End Date System, Provider Not In PCP - General Clinic 03/28/23 Naa Talavera MD [address] [place] [address] [address] [place] [address] Urology 02/23/20 Myke Dolan MD [address] [place] [address] Assigned Surgical Provider 04/06/23 documented as of this encounter
--- OUTSIDE RECORDS SUMMARY | 2025-01-16 12:11 | XMS_ITS | Clinical Summary ---
Author Organization [place] Address [facility] [place] [address] Care Team Providers Care Condenser Winder Name Role Phone Naa Talavera MD Unavailable [phone] System, Provider Not In Primary Care Provider Un available Myke Dolan MD Unavailable [phone] Allergies Active Allergy Reactions Criticality Noted Date [...] Department Care Team Description 01/15/2025 4:00 PM SURGICAL SALES REPRESENTATIVE Office Visit [facility] [address] [phone] Israel Patel, KELLEN Retro-orbital pain of left eye (Primary Dx); Temporal pain 01/15/2025 Travel 11/10/2024 MyC Medical Advice Initial Department [facility] Post-Op - General Surgery 11/10/2024 [facility] [place]ice Initial Department [facility] 11/09/2024 4:35 PM SURGICAL SALES REPRESENTATIVE Lab [facility] [address] [place] [address] S/P laparoscopic cholecystectomy; Elevated lipase 11/09/2024 Travel 11/09/2024 Telephone [facility] [place] [address] [place] [phone] Jair Vieira MD Post-Op - General Surgery (S/p lap patricia 11/06/24) 11/06/2024 8:40 AM SURGICAL SALES REPRESENTATIVE - 11/06/2024 10:25 AM SURGICAL SALES REPRESENTATIVE Surgery [facility] PeriOp Services [address] [place] [address] Jair Vieira MD CHOLECYSTECTOMY, ROBOT-ASSISTED, LAPAROSCOPIC, USING DA OTIS XI, LYSIS OF ADHESIONS 11/06/2024 8:39 AM SURGICAL SALES REPRESENTATIVE Anesthesia Event [facility] [address] [place] [address] Jair Ragsdale MD 11/06/2024 Travel 11/05/2024 4:43 PM SURGICAL SALES REPRESENTATIVE - 11/07/2024 1:00 PM SURGICAL SALES REPRESENTATIVE Emergency [facility] Observation Dept [address] [place] [address] Daniel Paez MD Kalinoski-Dubose, Michael T, MD Christie, Robert, MD HTN, goal below 140/90 (Primary Dx); Acute cholecystitis Discharge Disposition: Home or Self Care 11/05/2024 Travel 10/23/2024 3:55 PM SURGICAL SALES REPRESENTATIVE Office Visit [facility] [address] [phone] Israel Patel, PAYueC Frontal sinus pain (Primary Dx); Pain of maxillary sinus; Congestion of paranasal sinus 10/23/2024 Travel from Last 3 Months Immunizations Name Administration Dates Next Due DTaP, Unspecified 06/05/2017,06/25/2012 Flu, Unspecified 09/04/2019, 7,08/29/2015,2013,08/20/2014 [id number] Novel Flu 10/20/2009 Hepatitis A (ADULT 19+) [...] AM CDT Legal Sex Female 3:25 AM SURGICAL SALES REPRESENTATIVE Gender Identity Female 09/09/2021 6:11 AM CDT Sexual Orientation Straight 09/09/2021 6: 11 AM CDT Occupation Industry Job Start Date Job End Date home for now Not on file Not on file Not on file Last Filed Vital Signs Vital Sign Reading Time Taken Comments Blood Pressure 142/92 01/15/2025 4:04 PM SURGICAL SALES REPRESENTATIVE Pulse 83 01/15/2025 4:04 PM SURGICAL SALES REPRESENTATIVE Temperature 36.1 C (97 F) 01/15/2025 4:04 PM SURGICAL SALES REPRESENTATIVE Respiratory Rate 18 01/15/2025 4:04 PM SURGICAL SALES REPRESENTATIVE Oxygen Saturation 98% 01/15/2025 4:04 PM SURGICAL SALES REPRESENTATIVE Inhaled Oxygen Concentration - - Weight 89.9 kg (198 lb 3.2 oz) 01/15/2025 4:04 P M SURGICAL SALES REPRESENTATIVE Height 162.6 cm (5' 4) 11/05/2024 12:03 PM SURGICAL SALES REPRESENTATIVE Body Mass Index 34.02 11/05/2024 12:03 PM SURGICAL SALES REPRESENTATIVE Plan of Treatment Upcoming Encounters Date Type Department Care Team (Late st Contact Info) Description 01/21/2025 12:00 PM CDT Office Visit [address] [phone] Myke Dolan MD [address] [place] [phone] Health Maintenance Due Date Last Done [...] this topic Medical Devices Implanted Type Area Tank Truck Driver Device Identifier Shelf Expiration Date Model / Serial / Lot Mesh Composite Parietene Ds [id number] - [id number] Implanted:Qty: 1 on 12/08/2021 by Lucian Villegas MD at [facility] Mesh N/A: Abdomen COVIDIEN 12/11/2023 [id number] / / [id number] Procedures Procedure Name Priority Date/Time Associated Diagnosis Comments CBC WITH PLATELETS & DIFFERENTIAL STAT 01/15/2025 4:28 PM SURGICAL SALES REPRESENTATIVE Retro-orbital pain of left eye Temporal pain CBC WITH PLATELETS AND DIFFERENTIAL STAT 01/15/2025 4:28 PM SURGICAL SALES REPRESENTATIVE Retro-orbital pain of left eye Temporal pain CRP INFLAMMATION STAT 01/15/2025 4:28 PM SURGICAL SALES REPRESENTATIVE Retro-orbital pain of left eye Temporal pain ERYTHROCYTE SEDIMENTATION RATE AUTO STAT 01/15/2025 4:28 PM SURGICAL SALES REPRESENTATIVE Retro-orbital pain of left eye Temporal pain LIPASE Routine 11/09/2024 4:39 PM SURGICAL SALES REPRESENTATIVE S/P laparoscopic cholecystectomy Elevated lipase COMPREHENSIVE METABOLIC PANEL Routine 11/09/2024 4:39 PM SURGICAL SALES REPRESENTATIVE S/P laparoscopic cholecystectomy Elevated lipase BILIRUBIN DIRECT Routine 11/07/2024 5:16 AM SURGICAL SALES REPRESENTATIVE LIPASE Routine 11/07/2024 5:16 AM SURGICAL SALES REPRESENTATIVE COMPREHENSIVE METABOLIC PANEL Routine 11/07/2024 5:16 AM SURGICAL SALES REPRESENTATIVE CBC WITH PLATELETS Routine 11/07/2024 5: 16 AM SURGICAL SALES REPRESENTATIVE SURGICAL PATHOLOGY EXAM Routine 11/06/2024 9:41 AM SURGICAL SALES REPRESENTATIVE ANE AIRWAY ETT PERFORMABLE Routine 11/06/2024 8:52 AM SURGICAL SALES REPRESENTATIVE CHOLECYSTECTOMY, ROBOT-ASSISTED, LAPAROSCOPIC, USING DA OTIS XI 11/06/2024 8:45 AM SURGICAL SALES REPRESENTATIVE Acute cholecystitis COMPREHENSIVE METABOLIC PANEL Routine 11/06/2024 5:49 AM SURGICAL SALES REPRESENTATIVE CBC WITH PLATELETS Routine 11/06/2024 5: 49 AM SURGICAL SALES REPRESENTATIVE US ABDOMEN LIMITED STAT 11/05/2024 7: [address] REPRESENTATIVE [address] ABDOMEN PELVIS W CONTRAST STAT 11/05/2024 5:54 PM SURGICAL SALES REPRESENTATIVE ROUTINE UA WITH MICROSCOPIC REFLEX TO CULTURE STAT 11/05/2024 12:34 PM SURGICAL SALES REPRESENTATIVE HCG QUALITATIVE URINE STAT 11/05/2024 12:34 PM SURGICAL SALES REPRESENTATIVE CBC WITH PLATELETS & DIFFERENTIAL STAT 11/05/2024 12:15 PM SURGICAL SALES REPRESENTATIVE HEMOGLOBIN A1C Add-On 11/05/2024 12:15 PM SURGICAL SALES REPRESENTATIVE LIPASE Add-On 11/05/2024 12:15 PM SURGICAL SALES REPRESENTATIVE EXTRA RED TOP TUBE STAT 11/05/2024 12 :15 PM SURGICAL SALES REPRESENTATIVE EXTRA BLUE TOP TUBE STAT 11/05/2024 1 2:15 PM SURGICAL SALES REPRESENTATIVE CBC WITH PLATELETS AND DIFFERENTIAL STAT 11/05/2024 12:15 PM SURGICAL SALES REPRESENTATIVE EXTRA TUBE STAT 11/05/2024 12:15 PM SURGICAL SALES REPRESENTATIVE COMPREHENSIVE METABOLIC PANEL STAT 11/05/2024 12:15 PM SURGICAL SALES REPRESENTATIVE CRP INFLAMMATION STAT 10/23/2024 5:02 PM SURGICAL SALES REPRESENTATIVE Frontal sinus pain ERYTHROCYTE SEDIMENTATION RATE AUTO STAT 10/23/2024 5:02 PM SURGICAL SALES REPRESENTATIVE Frontal sinus pain MAMMOGRAM - HIM SCAN Routine 08/20/2018 LIPID REFLEX TO DIRECT LDL PANEL Routine 09/21/2013 9:57 AM SURGICAL SALES REPRESENTATIVE Routine general medical examination at a health care facility PAP IMAGED THIN LAYER SCREEN Routine 09/21/2013 12:00 AM SURGICAL SALES REPRESENTATIVE Routine general medical examination at a health care facility ALBUMIN RANDOM URINE QUANTITATIVE Routine 04/14/2013 10:30 AM CDT Hypertension COLONOSCOPY Routine 03/12/2013 9:29 AM CDT from Last 3 Months or Most Recently Relevant to Health Maintenance Results * (ABNORMAL) CBC with platelets and differential (01/15/2025 4:28 PM SURGICAL SALES REPRESENTATIVE) Only the most recent of2 resultswithin the time period is included. WBC Count 5.3 4.0 - 11.0 10e3/uL 01/15/2025 4:42 PM SURGICAL SALES REPRESENTATIVE [facility] RBC Count 4.30 3.80 - 5.20 10e6/uL 01/15/2025 4:42 PM SURGICAL SALES REPRESENTATIVE [facility] Hemoglobin 11.0(L) 11.7 - 15.7 g/dL 01/15/2025 4:42 PM SURGICAL SALES REPRESENTATIVE [facility] Hematocrit 34.4(L) 35.0 - 47.0 % 01/15/2025 4:42 PM SURGICAL SALES REPRESENTATIVE [facility] MCV 80 78 - 100 fL 01/15/2025 4:42 PM SURGICAL SALES REPRESENTATIVE [facility] MCH 25.6(L) 26.5 - 33.0 pg 01/15/2025 4:42 PM SURGICAL SALES REPRESENTATIVE [facility] MCHC 32.0 31.5 - 36.5 g/dL 01/15/2025 4:42 PM SURGICAL SALES REPRESENTATIVE [facility] RDW 16.2(H) 10.0 - 15.0 % 01/15/2025 4:42 PM SURGICAL SALES REPRESENTATIVE [facility] Platelet Count 220 150 - 450 10e3/uL 01/15/2025 4:42 PM SURGICAL SALES REPRESENTATIVE [facility] % Neutrophils 42 % 01/15/2025 4:42 PM SURGICAL SALES REPRESENTATIVE [facility] % Lymphocytes 49 % 01/15/2025 4:42 PM SURGICAL SALES REPRESENTATIVE [facility] % Monocytes 9 % 01/15/2025 4:42 PM SURGICAL SALES REPRESENTATIVE [facility] % Eosinophils 1 % 01/15/2025 4:42 PM SURGICAL SALES REPRESENTATIVE [facility] % Basophils 0 % 01/15/2025 4:42 PM SURGICAL SALES REPRESENTATIVE [facility] % Immature Granulocytes 0 % 01/15/2025 4:42 PM SURGICAL SALES REPRESENTATIVE [facility] Absolute Neutrophils 2.2 1.6 - 8.3 10e3/uL 01/15/2025 4:42 PM SURGICAL SALES REPRESENTATIVE [facility] Absolute Lymphocytes 2.6 0.8 - 5.3 10e3/uL 01/15/2025 4:42 PM SURGICAL SALES REPRESENTATIVE [facility] Absolute Monocytes 0.5 0.0 - 1.3 10e3/uL 01/15/2025 4:42 PM SURGICAL SALES REPRESENTATIVE [facility] Absolute Eosinophils 0.1 0.0 - 0.7 10e3/uL 01/15/2025 4:42 PM SURGICAL SALES REPRESENTATIVE [facility] Absolute Basophils 0.0 0.0 - 0.2 10e3/uL 01/15/2025 4:42 PM SURGICAL SALES REPRESENTATIVE [facility] Absolute Immature Granulocytes 0.0 <=0.4 10e3/uL 01/15/2025 4:42 PM SURGICAL SALES REPRESENTATIVE [facility] Blood BLOOD SPECIMEN / Unknown Venipuncture / Unknown 01/15/2025 4:28 PM SURGICAL SALES REPRESENTATIVE 01/15/2025 4:28 PM SURGICAL SALES REPRESENTATIVE Israel Patel PA-C LAB - BLOOD ORDERABLES Final Result [facility] Lab [address] [place] [address] Lab (no room number, 1st floor of [facility]) [address] * ESR: Erythrocyte sedimentation rate (01/15/2025 4:28 PM SURGICAL SALES REPRESENTATIVE) Only the most recent of2 resultswithin the time period is included. Erythrocyte Sedimentation Rate 15 0 - 30 mm/hr 01/15/2025 4:42 PM SURGICAL SALES REPRESENTATIVE [facility] Blood BLOOD SPECIMEN / Unknown Venipuncture / Unknown 01/15/2025 4:28 PM SURGICAL SALES REPRESENTATIVE 01/15/2025 4:28 PM SURGICAL SALES REPRESENTATIVE Israel Patel PA-C LAB - BLOOD ORDERABLES Final Result [facility] [address] (no room number, 1st floor of [facility]) [address] * CRP, inflammation (01/15/2025 4:28 PM SURGICAL SALES REPRESENTATIVE) Only the most recent of2 resultswithin the time period is included. CRP Inflammation <3.00 <5.00 mg/L 01/16/20 8:47 PM SURGICAL SALES REPRESENTATIVE [facility] Blood BLOOD SPECIMEN / Unknown Venipuncture / Unknown 01/15/2025 4:28 PM SURGICAL SALES REPRESENTATIVE 01/15/2025 4:28 PM SURGICAL SALES REPRESENTATIVE Israel Patel PA-C LAB - BLOOD ORDERABLES Final Result LABORATORY [facility] Acute Care Lab [address] 1st floor, [address] [place] [address], [facility] [phone] * (ABNORMAL) Lipase (11/09/2024 4:39 PM SURGICAL SALES REPRESENTATIVE) Only the most recent of3 resultswithin the time period is included. Lipase 87(H) 13 - 60 U/L 11/09/2024 5:20 PM SURGICAL SALES REPRESENTATIVE LABORATORY Blood STRUCTURE OF LEFT UPPER LIMB / Unknown Venipuncture / Unknown 11/09/2024 4:39 PM SURGICAL SALES REPRESENTATIVE 11/09/2024 4:39 PM SURGICAL SALES REPRESENTATIVE Alferdito Arellano PA-C LAB - BLOOD ORDER DELPHINE Final Result LABORATORY [facility] Lab [address] Lab (1st floor, no room number) [place] [address], [facility] * (ABNORMAL) Comprehensive metabolic panel (11/09/2024 4:39 PM SURGICAL SALES REPRESENTATIVE) Only the most recent of4 resultswithin the time period is included. Sodium 140 135 - 145 mmol/L 11/09/2024 5:20 PM SURGICAL SALES REPRESENTATIVE LABORATORY Potassium 3.9 3.4 - 5.3 mmol/L 11/09/2024 5:20 PM [facility] Carbon Dioxide (CO2) 25 22 - 29 mmol/L 11/09/2024 5:20 PM [facility] Anion Gap 11 7 - 15 mmol/L 11/09/2024 5:20 PM [facility] Urea Nitrogen 12.9 8.0 - 23.0 mg/dL 11/09/2024 5:20 PM [facility] Creatinine 1.01(H) 0.51 - 0.95 mg/dL 11/09/2024 5:20 PM [facility] GFR Estimate 63 >60 mL/min/1.7 3m2 11/09/2024 5:20 PM SURGICAL SALES REPRESENTATIVE [facility] Comment:eGFR calculated usin 2020 CKD-EPI equation. Calcium 9.3 8.8 - 10.4 mg/dL 11/09/2024 5:20 PM SURGICAL SALES REPRESENTATIVE [facility] Comment:Reference intervals for this test were updated on 05/26/2024 to reflect our healthy population more accurately. There may be differences in the flagging of prior results with similar values performed with this method. Those prior results can be interpreted in the context of the updated reference intervals. Chloride 104 98 - 107 mmol/L 11/09/2024 5:20 PM SURGICAL SALES REPRESENTATIVE [facility] Glucose 88 70 - 99 mg/dL 11/09/2024 5:20 PM SURGICAL SALES REPRESENTATIVE [facility] Alkaline Phosphatase 168(H) 40 - 150 U/L 11/09/2024 5:20 PM SURGICAL SALES REPRESENTATIVE [facility] AST 55(H) 0 - 45 U/L 11/09/2024 5:20 PM SURGICAL SALES REPRESENTATIVE [facility] ALT 194(H) 0 - 50 U/L 11/09/2024 5:20 PM SURGICAL SALES REPRESENTATIVE [facility] Protein Total 6.9 6.4 - 8.3 g/dL 11/09/2024 5:20 PM SURGICAL SALES REPRESENTATIVE [facility] Albumin 4.2 3.5 - 5.2 g/dL 11/09/2024 5:20 PM SURGICAL SALES REPRESENTATIVE LABORATORY Bilirubin Total 0.5 <=1.2 mg/dL 11/09/2024 5:20 PM SURGICAL SALES REPRESENTATIVE LABORATORY Blood STRUCTURE OF LEFT UPPER LIMB / Unknown Venipuncture / Unknown 11/09/2024 4:39 PM SURGICAL SALES REPRESENTATIVE 11/09/2024 4:39 PM SURGICAL SALES REPRESENTATIVE Alfredito Arellano PA-C LAB - BLOOD ORDER DELPHINE Final Result LABORATORY [facility] Acute Care Lab [address] Lab (1st floor, no room number) [place] [address], [facility] * Bilirubin direct (11/07/2024 5:16 AM SURGICAL SALES REPRESENTATIVE) Bilirubin Direct <0.20 0.00 - 0.30 mg/dL 11/07/2024 5:47 AM SURGICAL SALES REPRESENTATIVE [facility] Blood STRUCTURE OF LEFT UPPER LIMB / Unknown Venipuncture / Unknown 11/07/2024 5:16 AM SURGICAL SALES REPRESENTATIVE 11/07/2024 5:26 AM SURGICAL SALES REPRESENTATIVE us Jair Vieira MD LAB - BLOOD ORDERABLES Final Result [facility] Acute Care Lab [address] Lab (1st floor, no room number) [place] [address], [facility] * (ABNORMAL) CBC with platelets (11/07/2024 5:16 AM SURGICAL SALES REPRESENTATIVE) Only the most recent of2 resultswithin the time period is included. Pathologist [facility] WBC Count 9.2 4.0 - 11.0 10e3/uL 11/07/2024 5:29 AM SURGICAL SALES REPRESENTATIVE [facility] RBC Count 3.75(L) 3.80 - 5.20 10e6/uL 11/07/2024 5:29 AM SURGICAL SALES REPRESENTATIVE [facility] Hemoglobin 9.4(L) 11.7 - 15.7 g/dL 11/07/2024 5:29 AM SURGICAL SALES REPRESENTATIVE [facility] Hematocrit 29.2(L) 35.0 - 47.0 % 11/07/2024 5:29 AM SURGICAL SALES REPRESENTATIVE [facility] MCV 78 78 - 100 fL 11/07/2024 5:29 AM SURGICAL SALES REPRESENTATIVE [facility] MCH 25.1(L) 26.5 - 33.0 pg 11/07/2024 5:29 AM SURGICAL SALES REPRESENTATIVE [facility] MCHC 32.2 31.5 - 36.5 g/dL 11/07/2024 5:29 AM SURGICAL SALES REPRESENTATIVE [facility] RDW 17.5(H) 10.0 - 15.0 % 11/07/2024 5:29 AM SURGICAL SALES REPRESENTATIVE [facility] Platelet Count 176 150 - 450 10e3/uL 11/07/2024 5:29 AM SURGICAL SALES REPRESENTATIVE [facility] Blood STRUCTURE OF LEFT UPPER LIMB / Unknown Venipuncture / Unknown 11/07/2024 5:16 AM SURGICAL SALES REPRESENTATIVE 11/07/2024 5:26 AM SURGICAL SALES REPRESENTATIVE us Jair Vieira MD LAB - BLOOD ORDERABLES Final Result LABORATORY [facility] Acute Care Lab [address] Lab (1st floor, no room number) [place] [address] * Surgical Pathology Exam (11/06/2024 9:41 AM SURGICAL SALES REPRESENTATIVE) Case Report Surgical Pathology Report Case: [id number] Authorizing Provider: Jair Vieira MD Collected: 11/06/2024 09:41 AM Ordering Location: [facility] Received: 11/06/2024 10:31 AM Main OR Pathologist: Bronwyn Oden MD Specimen: Gallbladder, Gallbladder and Contents 11/10/2024 10:57 AM [facility] Final Diagnosis Gallbladder, cholecystectomy: -Acute on chronic cholecystitis, calculi not present 11/10/2024 10:57 AM [facility] Clinical Information Procedure: CHOLECYSTECTOMY, ROBOT-ASSISTED, LAPAROSCOPIC, USING DA OTIS XI, LYSIS OF ADHESIONS Pre-op Diagnosis: Acute cholecystitis [K81.0] Post-op Diagnosis: K81.0 - Acute cholecystitis [ICD-10-CM] 11/10/2024 10:57 AM [facility] Gross Description A(1). Gallbladder, [...] possible mass or nodularities are grossly identified. Chemical Sprayer sections of the gallbladder to include the cystic duct margin (inked black) are submitted in 1 cassette. (ISABELLA Mcqueen (ASCP) 11/06/2024 11:00 AM 11/10/2024 10:57 AM [facility] Microscopic Description A formal microscopic examination has been performed 11/10/2024 10:57 AM [facility] Performing Labs The technical component of this testing was completed at [facility]. Stain controls for all stains resulted within this report have been reviewed and show appropriate reactivity. 11/10/2024 10:57 AM SURGICAL SALES REPRESENTATIVE LABORATORY Case Images 11/10/2024 10:57 AM SURGICAL SALES REPRESENTATIVE LABORATORY Tissue GALLBLADDER PART / Unknown 11/06/2024 9:41 AM SURGICAL SALES REPRESENTATIVE 11/06/2024 10:31 AM SURGICAL SALES REPRESENTATIVE us Jair STILL - JABARI SHANKS Final Result LABORATORY [facility] Acute Care Lab [address] 1st floor, [address] [place] [address], [facility] [phone] LABORATORY [facility] Acute Care Lab [address] [facility] Lab (1st floor, no room number) [place] [address], [facility] * ANE AIRWAY ETT PERFORMABLE (11/06/2024 8:52 AM SURGICAL SALES REPRESENTATIVE) Narrative Lexi Anderson APRN ANESTHETIC ASSISTANT - 11/06/2024 8:52 AM SURGICAL SALES REPRESENTATIVE Lexi Anderson APRN ANESTHETIC ASSISTANT 11/06/2024 9:11 AM Airway Patient location during procedure: OR Procedure Start/Stop Times: 11/06/2024 8:52 AM Staff - Anesthesiologist: Jair Ragsdale MD ANESTHETIC ASSISTANT: Lexi Anderson APRN ANESTHETIC ASSISTANT Performed By: ANESTHETIC ASSISTANT Consent for Airway Urgency: elective Indications [...] Time: 11/06/2024 8:52 AM Jair Ragsdale MD [place] ANESTHESIA Final Result * US Abdomen Limited (11/05/2024 7:37 PM SURGICAL SALES REPRESENTATIVE) Radiologist flags 1.1 cm pancreatic lesion RADIOLOGY RESULTS Anatomical Region Laterality Modality Abdomen/Pelvis Ultrasound 11/05/2024 7:37 PM SURGICAL SALES REPRESENTATIVE Impressions 11/05/2024 7:58 PM SURGICAL SALES REPRESENTATIVE IMPRESSION: 1. Cholelithiasis, gallbladder wall thickening, and trace pericholecystic fluid, suspicious for acute cholecystitis. However, negative sonographic Fernández's sign. If confirmation is warranted, consider HIDA. 2. Hypoechoic pancreatic lesion measuring 1.1 cm, corresponding with CT findings. Consider nonemergent contrast-enhanced MRI/MRCP as suggested on CT report. [Consider Follow Up: 1.1 cm pancreatic lesion] This report will be copied to the [facility] to ensure a provider acknowledges the finding. Narrative 11/05/2024 7:58 PM SURGICAL SALES REPRESENTATIVE EXAM: US ABDOMEN LIMITED LOCATION: [facility] DATE: 11/05/2024 INDICATION: Abdominal pain, nausea, and [...] - 11/05/2024 EXAM: US ABDOMEN LIMITED LOCATION: [facility] DATE: 11/05/2024 INDICATION: Abdominal pain, nausea, and [...] This report will be copied to the [facility] to ensure aprovider acknowledges the finding. us Daniel Paez MD IMG US ORDERABLES Final Result * Abd/pelvis CT, IV contrast only TRAUMA / AAA (11/05/2024 5:54 PM SURGICAL SALES REPRESENTATIVE) Anatomical Region Laterality Modality Abdomen/Pelvis, SUBRAD CT MUNIRA DY, UMP CT ABDOMEN PELVIS, RAD CT Computed Tomography 11/05/2024 5:54 PM SURGICAL SALES REPRESENTATIVE Impressions 11/05/2024 6:15 PM SURGICAL SALES REPRESENTATIVE IMPRESSION: 1. Diffuse gallbladder wall thickening/edema. The [...] fibroid (3.9 cm). Narrative 11/05/2024 6:15 PM SURGICAL SALES REPRESENTATIVE EXAM: CT ABDOMEN PELVIS W CONTRAST LOCATION: [facility] DATE: 11/05/2024 INDICATION: Abdominal pain. Nausea, vomiting. [...] EXAM: CT ABDOMEN PELVIS W CONTRAST LOCATION: [facility] DATE: 11/05/2024 INDICATION: Abdominal pain. Nausea, vomiting. [...] * HCG qualitative urine (11/05/2024 12:34 PM SURGICAL SALES REPRESENTATIVE) hCG Urine Qualitative Negative Negative PAULINA 11/05/2024 12:49 PM SURGICAL SALES REPRESENTATIVE LABORATORY Comment:This test is for scr eening purposes. Results should be interpreted along with the clinical picture. Confirmation testing is available if warranted by ordering [id number], HCG Quantitative . Urine URINE SPECIMEN OBTAINED BY CLEAN CATCH PROCEDURE / Unknown Non-blood Collection / Unknown 11/05/2024 12:34 PM SURGICAL SALES REPRESENTATIVE 11/05/2024 12:40 PM SURGICAL SALES REPRESENTATIVE Daniel Paez MD LAB - URINE ORDERABLES Final Result [facility] Acute Care Lab [address] [facility] Lab (1st floor, no room number) [place] [address], [facility] * (ABNORMAL) UA with Microscopic reflex to Culture (11/05/2024 12:34 PM SURGICAL SALES REPRESENTATIVE) Color Urine Light Yellow Colorless, Straw, Light Yellow, Yellow 11/05/2024 12:55 PM SURGICAL SALES REPRESENTATIVE LABORATORY Appearance Urine Clear Clear 11/05/20 12:55 PM SURGICAL SALES REPRESENTATIVE LABORATORY Glucose Urine Negative Negative mg/dL 11/05/2024 12:55 PM SURGICAL SALES REPRESENTATIVE LABORATORY Bilirubin Urine Negative Negative 12:55 PM SURGICAL SALES REPRESENTATIVE LABORATORY Ketones Urine Negative Negative mg/dL 11/05/2024 12:55 PM SURGICAL SALES REPRESENTATIVE LABORATORY Specific [place] Urine 1.024 1.003 - 1.035 11/05/2024 12:55 PM SURGICAL SALES REPRESENTATIVE LABORATORY Blood Urine Negative Negative 11/05/2024 12:55 PM SURGICAL SALES REPRESENTATIVE LABORATORY pH Urine 6.5 5.0 - 7.0 11/05/2024 12:55 PM SURGICAL SALES REPRESENTATIVE LABORATORY Protein Albumin Urine 50(A) Negative mg/dL 11/05/2024 12:55 PM SURGICAL SALES REPRESENTATIVE LABORATORY Urobilinogen Urine Normal Normal, 2.0 mg/dL 11/05/2024 12:55 PM SURGICAL SALES REPRESENTATIVE LABORATORY Nitrite Urine Negative Negative 11/05/2024 12:55 PM SURGICAL SALES REPRESENTATIVE LABORATORY Leukocyte Esterase Urine Negative Negative 11/05/2024 12:55 PM SURGICAL SALES REPRESENTATIVE LABORATORY Mucus Urine Present(A) None Seen /LPF 11/05/2024 12:55 PM SURGICAL SALES REPRESENTATIVE LABORATORY RBC Urine 4(H) <=2 /HPF 11/05/2024 12:55 PM SURGICAL SALES REPRESENTATIVE LABORATORY WBC Urine 1 <=5 /HPF 11/05/2024 12:55 PM SURGICAL SALES REPRESENTATIVE LABORATORY Urine URINE SPECIMEN OBTAINED BY CLEAN CATCH PROCEDURE / Unknown Non-blood Collection / Unknown 11/05/2024 12:34 PM SURGICAL SALES REPRESENTATIVE 11/05/2024 12:40 PM SURGICAL SALES REPRESENTATIVE Narrative LABORATORY - 11/05/2024 12:55 PM SURGICAL SALES REPRESENTATIVE Urine Culture not indicated us Daniel Paez MD LAB - URINE ORDERABLES Final Result LABORATORY [facility] Lab [address] Lab (1st floor, no room number) [place] [address], [facility] * Extra Red Top Tube (11/05/2024 12:15 PM SURGICAL SALES REPRESENTATIVE) Hold Specimen [facility] 11/05/2024 1:31 PM SURGICAL SALES REPRESENTATIVE LABORATORY Blood STRUCTURE OF RIGHT UPPER LIMB / Unknown Venipuncture / Unknown 11/05/2024 12:15 PM SURGICAL SALES REPRESENTATIVE 11/05/2024 12:29 PM SURGICAL SALES REPRESENTATIVE Daniel Paez MD LAB - BLOOD ORDERABLES Final Result [facility] [address] Lab (1st floor, no room number) [place] [address], [place] * Extra Blue Top Tube (11/05/2024 12:15 PM SURGICAL SALES REPRESENTATIVE) Hold Specimen JIC 11/05/2024 1:31 PM SURGICAL SALES REPRESENTATIVE LABORATORY Blood STRUCTURE OF RIGHT UPPER LIMB / Unknown Venipuncture / Unknown 11/05/2024 12:15 PM SURGICAL SALES REPRESENTATIVE 11/05/2024 12:29 PM SURGICAL SALES REPRESENTATIVE Daniel Paez MD LAB - BLOOD ORDERABLES Final Result Performing Organization Address [facility]/ZIP Co de Phone Number [facility] Lab [address] Lab (1st floor, no room number) [place] [phone] * (ABNORMAL) Hemoglobin A1c (11/05/2024 12:15 PM SURGICAL SALES REPRESENTATIVE) Estimated Average Glucose 148(H) <117 mg/dL 11/05/2024 10:56 PM SURGICAL SALES REPRESENTATIVE LABORATORY Hemoglobin A1C 6.8(H) <5.7 % 11/05/2024 10:56 PM SURGICAL SALES REPRESENTATIVE LABORATORY Comment: Normal <5.7% Prediabetes 5.7-6.4% Diabetes 6.5% or higher Note: Adopted from ADA consensus guidelines. Blood STRUCTURE OF RIGHT UPPER LIMB / Unknown Venipuncture / Unknown 11/05/2024 12:15 PM SURGICAL SALES REPRESENTATIVE 11/05/2024 12:29 PM SURGICAL SALES REPRESENTATIVE Dc Colmenares MD LAB - BLOOD ORDERA BLES Final Result [facility] [address] Lab (1st floor, no room number) [place] [phone] * Mammogram - HIM Scan (08/20/2018) Anatomical Region Laterality Modality Other Narrative 08/20/2018 Result Impression There is no radiographic evidence for malignancy. Recommend annual mammograms. A lay language report of this examination will be provided to the patient. MAMMOGRAM ASSESSMENT: ACR 1 Negative Other Result Information Result Narrative XR MAMMO BILAT SCREENING [[id number]] CLINICAL HISTORY: This is an asymptomatic 57 y.o. patient. INDICATION FOR EXAM: Mammogram Screening. TECHNIQUE: CC & MLO views were obtained. This digital study was evaluated with the assistance of Computer-Aided Detection. COMPARISON FILM: Yes 06/05/17 UTD AV MEDICAL IMAGING 03/22/16 MID AV MEDICAL IMAGING FINDINGS: Mammographically, the breast tissue has scattered fibroglandular densities. There are no dominant masses, suspicious micro calcifications or areas of architectural distortion. Provider Outside IMG MAMMOGRAPHY ORDERABLES Marixa l Result * (ABNORMAL) Lipid panel reflex to direct LDL (09/21/2013 9:57 AM SURGICAL SALES REPRESENTATIVE) Cholesterol 208(H) 0 - 200 mg/dL [facility] Comment: LDL Cholesterol is the primary guide to therapy. The NCEP recommends further evaluation of: patients with cholesterol greater than 200 mg/dL if additional risk factors are present, cholesterol greater than 240 mg/dL, triglycerides greater than 150 mg/dL, or HDL less than 40 mg/dL. Triglycerides 66 0 - 150 mg/dL [facility] HDL Cholesterol 80 50 - 110 mg/dL [facility] LDL Cholesterol Calculated 115 0 - 129 mg/dL [facility] Comment: LDL Cholesterol is the primary guide to therapy: LDL-cholesterol goal in high risk patients is <100 mg/dL and in very high risk patients is <70 mg/dL. VLDL-Cholesterol 13 0 - 30 mg/dL [facility] Cholesterol/HDL Ratio 2.6 0.0 - 5.0 [facility] Blood specimen (specimen) 09/21/2013 9:57 AM SURGICAL SALES REPRESENTATIVE 09/21/2013 9:59 AM SURGICAL SALES REPRESENTATIVE Toney Ang MD LAB - BLOOD ORDERABLES Final R esult [facility] [address] [place] [address] * PAP IMAGED THIN LAYER SCREEN (09/21/2013 12:00 AM SURGICAL SALES REPRESENTATIVE) PAP ИВАН Styles Report Patient Name: LAI YOUNG MR#: [id number] Specimen #: [id number] Collected: 09/21/2013 Received: 09/22/2013 Reported: 09/23/2013 13:24 [...] MORGAN Chowdary (ASCP) Processed and screened at [facility], [facility] CLINICAL HISTORY: Ablation, Previous normal pap Date of Last Pap: 09/11/12, Papanicolaou Test Limitations: Cervical cytology is a screening test with limited sensitivity; regular screening is critical for cancer prevention; Pap tests are primarily effective for the diagnosis/preventi on of squamous cell carcinoma, not adenocarcinomas or other cancers. TESTING LAB LOCATION: [address] [id number] COLLECTION SITE: Client: [facility] Location: [facility] (R) COPATH Cytologic material (specimen) 09/21/2013 09/22/2013 10:56 AM SURGICAL SALES REPRESENTATIVE us Toney Ang MD LAB - OPTIME [...] esult [facility] [address] [place] [address] * COLONOSCOPY (03/12/2013 9:29 AM CDT) COLONOSCOPY [facility] Patient Name: Umo Udo Procedure Date: 03/12/2013 [...] MD PROCEDURES Final Result Performing Organization Address City/State/[place] de Phone Number RADIOLOGY RESULTS from Last 3 Months or Most Recently Relevant to Health Maintenance Insurance [facility] [place] OF [place] Advance Directives For more information, please contact: [phone] * Full Code (Latest Code Status on File) Date Activated Date Inactivated Comments 11/05/2024 8:47 PM 11/07/2024 3:02 PM All basic and advanced life-sustaining interventions are performed as appropriate Question Answer Comments Code status determined by: Discussion with patie nt/ legal decision maker * Full Code Date Activated Date Inactivated Comments 04/24/2013 5:18 AM 04/29/2013 4:46 PM Care Teams Condenser Winder Relationship Specialty Start Date End Date System, Provider Not In PCP - General Clinic 03/28/23 Naa Talavera MD [address] [place] [address] [address] [place], [place] [address] Urology 02/23/20 Myke Dolan MD [address] [place], [place] 296372 Assigned Surgical Provider 04/06/23
--- OUTSIDE RECORDS SUMMARY | 2025-01-16 12:11 | XMS_ITS | Encounter Summary ---
Author Organization [facility] Address [address] [place] [address] Care Team Providers Care Hypertrichologist Name Role Phone Germaine Pena MD Primary Care Provider Max Andrews MD Primary Care Provider [phone] Toney Escobar MD Primary Care Provider [phone] Tereza Centeno MD Primary Care Provider [facility] Primary Care Provider + Naa Talavera MD Unavailable [phone] Naa Talavera MD Unavailable [phone] Tonya Acuña PA-C Unavailable [phone] Minerva Rico PA-C Unavailable [phone] Naa Talavera MD Unavailable [phone] Lucian Villegas MD Unavailable [phone] Rhianna Bravo MD Primary Care Provider [phone] System, Provider Not In Primary Care Provider Un available Myke Dolan MD Unavailable [phone] Encounter Details Date Type Department Care Team (Late st Contact Info) Description 06/03/2009 MyC Medical Advice Initial Department [facility] Social History Tobacco Use Types Packs/Day Years Used Date Smoking Tobacco: Never Alcohol Use Standard Drinks/Week Comments Yes 0 (1 standard drink = 0.6 oz pur e alcohol) occasionally Comments No Sex and Gender Information Value Date Recorded Sex Assigned at Female 09/09/2021 6:11 AM CDT Legal Sex Female 3:25 AM 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 Gender Identity Female 09/09/2021 6:11 AM CDT Sexual Orientation Straight 09/09/2021 6: 11 AM CDT Occupation Industry Job Start Date Job End Date home for now Not on file Not on file Not on file documented as of this encounter Plan of Treatment Upcoming Encounters Date Type Department Care Team (Late st Contact Info) Description 01/21/2025 12:00 PM CDT Office Visit [address] [address] Myke Dolan MD [address] [place] [address] documented as of this encounter Visit Diagnoses Not on filedocumented in this encounter Care Teams Hypertrichologist Relationship Specialty Start Date End Date Germaine Pena MD PCP - General 11/18/03 10/22/12 Max Andrews MD [address] [place] [address] PCP - General Family Practice 10/23/12 02/25/13 [place] [address] [place] [address] PCP - General Family Practice 02/26/13 02/04/14 [place] [address] [place] [address] PCP - General Family Practice 02/05/14 09/25/17 [facility], [facility] PCP - General Family Practice 09/26/17 11/21/21 [place] [address] [place] [address] PCP - General Family Medicine 11/22/21 03/27/23 System, Provider Not In PCP - General Clinic 03/28/23 Naa Talavera MD [address] [address] Urology 02/23/20 Naa Talavera MD [address] [place] [address] 7[address]65 Assigned Surgical Provider 09/02/20 01/24/21 Tonya Acuña PA-C [address] [place], [place] [address] Assigned Surgical Provider 01/25/21 03/11/21 Minerva Rico PA-C [address] [address] Assigned OBGYN Provider 01/25/21 1 Naa Talavera MD [address] [place] [address] 549705 Assigned Surgical Provider 03/12/21 09/16/21 Lucian Villegas MD [address] [facility] [address] [place] [address] Assigned Surgical Provider 09/17/21 03/29/23 Myke Dolan MD [address] [place] [address] Assigned Surgical Provider 04/06/23 documented as of this encounter
--- OUTSIDE RECORDS SUMMARY | 2025-01-16 12:11 | XMS_ITS | Encounter Summary ---
Author Organization [facility] Address [address] [place] [address] Care Team Providers Care Knock Out Hand Name Role Phone Toney Escobar MD Primary Care Provider Tereza Centeno MD Primary Care Provider Unav ailable [facility] Primary Care Provider + Naa Talavera MD Unavailable [phone] Naa Talavera MD Unavailable [phone] Tonya Acuña PA-C Unavailable [phone] Minerva Rico PA-C Unavailable [phone] Naa Talavera MD Unavailable [phone] Lucian Villegas MD Unavailable [phone] Rhianna Bravo MD Primary Care Provider [phone] System, Provider Not In Primary Care Provider Un available Myke Dolan MD Unavailable [phone] Reason for Visit * Reason Onset Date Comments Patient Request 11/13/2013 Encounter Details Date Type Department Care Team (Late st Contact Info) Description 11/13/2013 [facility] [address] [place] [address] [place] [address] [place] [address] Patient Request Social History Tobacco Use Types Packs/Day Years Used Date Smoking Tobacco: Never Smokeless Tobacco: Never Alcohol Use Standard Drinks/Week Comments Yes 0 (1 standard drink = 0.6 oz pur e alcohol) occasionally Comments No Sex and Gender Information Value Date Recorded Sex Assigned at Female 09/09/2021 6:11 AM CDT Legal Sex Female 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 Gender Identity Female 09/09/2021 6:11 AM CDT Sexual Orientation Straight 09/09/2021 6: 11 AM CDT Occupation Industry Job Start Date Job End Date home for now Not on file Not on file Not on file documented as of this encounter Plan of Treatment Upcoming Encounters Date Type Department Care Team (Late st Contact Info) Description 01/21/2025 12:00 PM CDT Office Visit [address] [address] Myke Dolan MD [address] [place] [address] documented as of this encounter Visit Diagnoses Not on filedocumented in this encounter Care Teams Knock Out Hand Relationship Specialty Start [place] [address] [place] [address] PCP - General Family Practice 02/26/13 02/04/14 [place] [address] [place] [address] PCP - General Family Practice 02/05/14 09/25/17 [facility], [facility] PCP - General Family Practice 09/26/17 11/21/21 [place] [address] [place] [address] PCP - General Family Medicine 11/22/21 03/27/23 System, Provider Not In PCP - General Clinic 03/28/23 Naa Talavera MD [address] [place] [address] Urology 02/23/20 Naa Talavera MD [address] [place] [address] 538765 Assigned Surgical Provider 09/02/20 01/24/21 Tonya Acuña PA-C [address] [place], [place] 79[address] Assigned Surgical Provider 01/25/21 03/11/21 Minerva Rico PA-C [address] [address] Assigned OBGYN Provider 01/25/21 Naa Talavera MD [address] [place] [address] 6[address]65 Assigned Surgical Provider 03/12/21 09/16/21 Lucian Villegas MD [address] [facility] [address] [place], [place] [address] Assigned Surgical Provider 09/17/21 03/29/23 Myke Dolan MD [address] [place], [place] [address] Assigned Surgical Provider 04/06/23 documented as of this encounter
--- OUTSIDE RECORDS SUMMARY | 2025-01-16 12:11 | XMS_ITS | Encounter Summary ---
Author Organization [facility] Address [address] [place] [address] Care Team Providers Care Braider Operator Name Role Phone Germaine Pena MD Primary Care Provider Max Andrews MD Primary Care Provider [phone] Toney Escobar MD Primary Care Provider [phone] Tereza Centeno MD Primary Care Provider Unav [facility] Primary Care Provider + Naa Talavera MD Unavailable [phone] Naa Talavera MD Unavailable [phone] Tonya Acuña PA-C Unavailable [phone] Minerva Rico PA-C Unavailable [phone] Naa Talavera MD Unavailable [phone] Lucian Villegas MD Unavailable [phone] Rhianna Bravo MD Primary Care Provider [phone] System, Provider Not In Primary Care Provider Un available Myke Dolan MD Unavailable [phone] Encounter Details Date Type Department Care Team (Late Contact Info) Description 04/20/2008 MyC Medical Advice [address] [address] Germaine Pena MD [address] [place] [address] Social History Tobacco Use Types Packs/Day Years Used Date Smoking Tobacco: Never Alcohol Use Standard Drinks/Week Comments Yes 0 (1 standard drink = 0.6 oz pur e alcohol) occasionally Comments No Sex and Gender Information Value Date Recorded Sex Assigned at Female 09/09/2021 6:11 AM CDT Legal Sex 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 Gender Identity Female 09/09/2021 6:11 AM CDT Sexual Orientation Straight 09/09/2021 6: 11 AM CDT Occupation Industry Job Start Date Job End Date home for now Not on file Not on file Not on file documented as of this encounter Plan of Treatment Upcoming Encounters Date Type Department Care Team (Late Contact Info) Description 01/21/2025 12:00 PM CDT Office Visit [address] [address] Myke Dolan MD [address] [place] [address] documented as of this encounter Visit Diagnoses Not on filedocumented in this encounter Care Teams Braider Operator Relationship Specialty Start Date End Date Germaine Pena MD PCP - General 11/18/03 10/22/12 Max Andrews MD [address] [place] [address] PCP - General Family Practice 10/23/12 02/25/13 [place] [address] [place] [address] PCP - General Family Practice 02/26/13 02/04/14 [place] [address] [place] [address] PCP - General Family Practice 02/05/14 09/25/17 [facility], [facility] PCP - General Family Practice 09/26/17 11/21/21 [place] [address] [place] [address] PCP - General Family Medicine 11/22/21 03/27/23 System, Provider Not In PCP - General Clinic 03/28/23 Naa Talavera MD [address] [place] [address] [id number] Urology 02/23/20 Naa Talavera MD [address] [place] [address] 847655 Assigned Surgical Provider 09/02/20 01/24/21 Tonya Acuña PA-C [address] [place], [place] [address] Assigned Surgical Provider 01/25/21 03/11/21 Minerva Rico PA-C [address] [address] Assigned OBGYN Provider 01/25/21 5 1 Naa Talavera MD [address] [place] [address]59295 Assigned Surgical Provider 03/12/21 09/16/21 Lucian Villegas MD [address] [address] Assigned Surgical Provider 09/17/21 03/29/23 Myke Dolan MD [address] [place] [address] Assigned Surgical Provider 04/06/23 documented as of this encounter
--- OUTSIDE RECORDS SUMMARY | 2025-01-16 12:11 | XMS_ITS | Encounter Summary ---
Author Organization [facility] Address [address] [facility] 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 Gender Identity Female 09/09/2021 6:11 AM CDT Sexual Orientation Straight 09/09/2021 6: 11 AM CDT Occupation Industry Job Start Date Job End Date home for now Not on file Not on file Not on file documented as of this encounter Plan of Treatment Upcoming Encounters Date Type Department Care Team (Late st Contact Info) Description 01/21/2025 12:00 PM CDT Office Visit [address] [address] Myke Dolan MD [address] [place] [address] documented as of this encounter Visit Diagnoses Not on filedocumented in this encounter Additional Health Concerns Assessment Noted Time PHQ-9 Depression Total Score: 5 03/09/20 21 8:22 AM CDT documented as of this encounter Care Teams Painter Ordnance Relationship Specialty Start Date End Date System, Provider Not In PCP - General Clinic 03/28/23 Naa Talavera MD [address] [facility] [address] [place] [address] Urology 02/23/20 Myke Dolan MD [address] [place], [place] [address]952 Assigned Surgical Provider 04/06/23 documented as of this encounter
--- OUTSIDE RECORDS SUMMARY | 2025-01-16 12:11 | XMS_ITS | Encounter Summary ---
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 Gender Identity Female 09/09/2021 6:11 AM CDT Sexual Orientation Straight 09/09/2021 6: 11 AM CDT Occupation Industry Job Start Date Job End Date home for now Not on file Not on file Not on file documented as of this encounter Plan of Treatment Upcoming Encounters Date Type Department Care Team (Late st Contact Info) Description 01/21/2025 12:00 PM CDT Office Visit [address] [address] Myke Dolan MD [address] [place] [address] 238522 documented as of this encounter Visit Diagnoses Not on filedocumented in this encounter Additional Health Concerns Assessment Noted Time PHQ-9 Depression Total Score: 5 03/09/20 21 8:22 AM CDT documented as of this encounter Care Teams Dietary Assistant Relationship Specialty Start Date End Date System, Provider Not In PCP - General Clinic 03/28/23 Naa Talavera MD [address] [facility] [address] [place] [address] Urology 02/23/20 Myke Dolan MD [address] [place], [place] [address] Assigned Surgical Provider 04/06/23 documented as of this encounter
--- OUTSIDE RECORDS SUMMARY | 2025-01-16 12:11 | XMS_ITS | Encounter Summary ---
Author Organization [facility] Address [facility] [place] [address] Care Team Providers Care Professor Of Biology Name Role Phone Naa Talavera MD Unavailable [phone] System, Provider Not In Primary Care Provider Un available Myke Dolan MD Unavailable [phone] Reason for Visit * Reason Comments Urgent Care Facial Pain 2 wks ago started wi th some nasal congestion and now she is having more pain mainly on her left side of her face Encounter Details Date Type Department Care Team (Late st Contact Info) Description 01/15/2025 4:00 PM IN STORE MARKETER Office Visit [facility] [place] [address] [address] Israel Patel PA-C [address] [address] Retro-orbital pain of left eye (Primary Dx); Temporal pain Social History Tobacco Use Types Packs/Day Years [...] Date Recorded Do you have housing? (Harpal garcia is defined as stable permanent housing and does not include staying ouside in a car, in a tent, in an abandoned building, in an overnight penitentiary, or couch-surfing.) Yes 11/07/2024 Are you worried [...] AM CDT Legal Sex Female 3:25 AM IN STORE MARKETER Gender Identity Female 09/09/2021 6:11 AM CDT Sexual Orientation Straight 09/09/2021 6: 11 AM CDT Occupation Industry Job Start Date Job End Date home for now Not on file Not on file Not on file documented as of this encounter Last Filed Vital Signs Vital Sign Reading Time Taken Comments Blood Pressure 142/92 01/15/2025 4:04 PM IN STORE MARKETER Pulse 83 01/15/2025 4:04 PM IN STORE MARKETER Temperature 36.1 C (97 F) 01/15/2025 4:04 PM IN STORE MARKETER Respiratory Rate 18 01/15/2025 4:04 PM IN STORE MARKETER Oxygen Saturation 98% 01/15/2025 4:04 PM IN STORE MARKETER Inhaled Oxygen Concentration - - Weight 89.9 kg (198 lb 3.2 oz) 01/15/2025 4:04 P M IN STORE MARKETER Height - - Body Mass Index 34.02 11/05/2024 12:03 PM IN STORE MARKETER documented in this encounter Progress Notes * Israel Patel PA-C - 01/15/2025 4:00 PM CST Assessment & Plan Retro-orbital pain of left eye Patient is having left retro-oribital pain that is reoccurring She has been seen for this before and told to go to the ED but she never went Symptoms have returned again I have directed to the ED for head CT and evaluation for temporal arteriris She has declined going again today I have placed her on medrol for today and she agrees to go to the ED tomorrow - ESR: Erythrocyte sedimentation rate - CRP, inflammation - CBC with platelets and differential - methylPREDNISolone (MEDROL DOSEPAK) 4 MG tablet therapy pack Dispense: 21 tablet; Refill: 0 Temporal pain Patient has orbital pain, pain behind eye and left temporal pain ESR is normal today CRP pending CBC shows chronic anemia - methylPREDNISolone (MEDROL DOSEPAK) 4 MG tablet therapy pack Dispense: 21 tablet; Refill: 0 Patient to go to the ED for further evaluation with CT, blood work and giant cell arteritis rule out No follow-ups on file. Israel Patel, [facility], [facility] Hoyt is a 64 year old female who presents to clinic today for the following health issues: Chief Complaint Patient presents with Urgent Care Facial Pain 2 wks ago started with some nasal congestion and now she is having more pain mainly on her left side of her face HPI Review of Systems Constitutional, HEENT, cardiovascular, pulmonary, gi and gu systems are negative, except as otherwise noted. Objective BP (!) 142/92 Pulse 83 Temp 97 ??F (36.1 ??C) (Tympanic) Resp 18 Wt 89.9 kg (198 lb 3.2 oz) SpO2 98% BMI 34.02 kg/m?? Physical Exam GENERAL: alert and no distress EYES: Eyes grossly normal to inspection, PERRL and conjunctivae and sclerae normal HENT: pos for left retro- orbital pain NECK: no adenopathy, no asymmetry, masses, or scars RESP: lungs clear to auscultation - no rales, rhonchi or wheezes CV: regular rate and rhythm, normal S1 S2, no S3 or S4, no murmur, click or rub, no peripheral edema MS: no gross musculoskeletal defects noted, no edema SKIN: no suspicious lesions or rashes NEURO: Normal strength and tone, mentation intact and speech normal PSYCH: mentation appears normal, affect normal/bright Results for orders placed or performed in visit on 01/15/25 ESR: Erythrocyte sedimentation rate Status: Normal Result Value Ref Range Erythrocyte Sedimentation Rate 15 0 - 30 mm/hr CBC with platelets and differential Status: Abnormal Result Value Ref Range WBC Count 5.3 4.0 - 11.0 10e3/uL RBC Count 4.30 3.80 - 5.20 10e6/uL Hemoglobin 11.0 (L) 11.7 - 15.7 g/dL Hematocrit 34.4 (L) 35.0 - 47.0 % MCV 80 78 - 100 fL MCH 25.6 (L) 26.5 - 33.0 pg MCHC 32.0 31.5 - 36.5 g/dL RDW 16.2 (H) 10.0 - 15.0 % Platelet Count 220 150 - 450 10e3/uL % Neutrophils 42 % % Lymphocytes 49 % % Monocytes 9 % % Eosinophils 1 % % Basophils 0 % % Immature Granulocytes 0 % Absolute Neutrophils 2.2 1.6 - 8.3 10e3/uL Absolute Lymphocytes 2.6 0.8 - 5.3 10e3/uL Absolute Monocytes 0.5 0.0 - 1.3 10e3/uL Absolute Eosinophils 0.1 0.0 - 0.7 10e3/uL Absolute Basophils 0.0 0.0 - 0.2 10e3/uL Absolute Immature Granulocytes 0.0 <=0.4 10e3/uL CBC with platelets and differential Status: Abnormal Narrative The following orders were created for panel order CBC with platelets and differential. Procedure Abnormality Status --------- ------ CBC with platelets and ...[[id number]] Abnormal Final result Please view results for these tests on the individual orders. STORE MARKETER documented in this encounter Plan of Treatment Upcoming Encounters Date Type Department Care Team (Late st Contact Info) Description 01/21/2025 12:00 PM CDT Office Visit [facility] [address] [place] [phone] Myke Dolan MD [address] [place] [address] documented as of this encounter Procedures Procedure Name Priority Date/Time Associated Diagnosis Comments CBC WITH PLATELETS AND DIFFERENTIAL STAT 01/15/2025 4:28 PM IN STORE MARKETER Retro-orbital pain of left eye Temporal pain CBC WITH PLATELETS & DIFFERENTIAL STAT 01/15/2025 4:28 PM IN STORE MARKETER Retro-orbital pain of left eye Temporal pain ERYTHROCYTE SEDIMENTATION RATE AUTO STAT 01/15/2025 4:28 PM IN STORE MARKETER Retro-orbital pain of left eye Temporal pain CRP INFLAMMATION STAT 01/15/2025 4:28 PM IN STORE MARKETER Retro-orbital pain of left eye Temporal pain documented in this encounter Results * (ABNORMAL) CBC with platelets and differential (01/15/2025 4:28 PM IN STORE MARKETER) WBC Count 5.3 4.0 - 11.0 10e3/uL 01/15/2025 4:42 PM IN STORE MARKETER [facility] RBC Count 4.30 3.80 - 5.20 10e6/uL 01/15/2025 4:42 PM IN STORE MARKETER [facility] Hemoglobin 11.0(L) 11.7 - 15.7 g/dL 01/15/2025 4:42 PM IN STORE MARKETER [facility] Hematocrit 34.4(L) 35.0 - 47.0 % 01/15/2025 4:42 PM IN STORE MARKETER [facility] MCV 80 78 - 100 fL 01/15/2025 4:42 PM IN STORE MARKETER [facility] MCH 25.6(L) 26.5 - 33.0 pg 01/15/2025 4:42 PM IN STORE MARKETER [facility] MCHC 32.0 31.5 - 36.5 g/dL 01/15/2025 4:42 PM IN STORE MARKETER [facility] RDW 16.2(H) 10.0 - 15.0 % 01/15/2025 4:42 PM IN STORE MARKETER [facility] Platelet Count 220 150 - 450 10e3/uL 01/15/2025 4:42 PM IN STORE MARKETER [facility] % Neutrophils 42 % 01/15/2025 4:42 PM IN STORE MARKETER [facility] % Lymphocytes 49 % 01/15/2025 4:42 PM IN STORE MARKETER [facility] % Monocytes 9 % 01/15/2025 4:42 PM IN STORE MARKETER [facility] % Eosinophils 1 % 01/15/2025 4:42 PM IN STORE MARKETER [facility] % Basophils 0 % 01/15/2025 4:42 PM IN STORE MARKETER [facility] % Immature Granulocytes 0 % 01/15/2025 4:42 PM IN STORE MARKETER [facility] Absolute Neutrophils 2.2 1.6 - 8.3 10e3/uL 01/15/2025 4:42 PM IN STORE MARKETER [facility] Absolute Lymphocytes 2.6 0.8 - 5.3 10e3/uL 01/15/2025 4:42 PM IN STORE MARKETER [facility] Absolute Monocytes 0.5 0.0 - 1.3 10e3/uL 01/15/2025 4:42 PM IN STORE MARKETER [facility] Absolute Eosinophils 0.1 0.0 - 0.7 10e3/uL 01/15/2025 4:42 PM IN STORE MARKETER [facility] Absolute Basophils 0.0 0.0 - 0.2 10e3/uL 01/15/2025 4:42 PM IN STORE MARKETER [facility] Absolute Immature Granulocytes 0.0 <=0.4 10e3/uL 01/15/2025 4:42 PM IN STORE MARKETER [facility] Blood BLOOD SPECIMEN / Unknown Venipuncture / Unknown 01/15/2025 4:28 PM IN STORE MARKETER 01/15/2025 4:28 PM IN STORE MARKETER us Israel Patel PA-C LAB - BLOOD ORDERABLES Final Result [facility] [address] Lab (no room number, 1st floor of clinic) [place] [address], [facility] * CRP, inflammation (01/15/2025 4:28 PM IN STORE MARKETER) CRP Inflammation <3.00 <5.00 mg/L 01/16/20 25 8:47 PM IN STORE MARKETER LABORATORY Blood BLOOD SPECIMEN / Unknown Venipuncture / Unknown 01/15/2025 4:28 PM IN STORE MARKETER 01/15/2025 4:28 PM IN STORE MARKETER Israel Patel PA-C LAB - BLOOD ORDERABLES Final Result [facility] [address] 1st floor, [address] [place] [address], [facility] [phone] * ESR: Erythrocyte sedimentation rate (01/15/2025 4:28 PM IN STORE MARKETER) Erythrocyte Sedimentation Rate 15 0 - 30 mm/hr 01/15/2025 4:42 PM IN STORE MARKETER [facility] Blood BLOOD SPECIMEN / Unknown Venipuncture / Unknown 01/15/2025 4:28 PM IN STORE MARKETER 01/15/2025 4:28 PM IN STORE MARKETER Israel Patel PA-C LAB - BLOOD ORDERABLES Final Result LABORATORY [facility] [address] Lab (no room number, 1st floor of clinic) [place] [address], [facility] documented in this encounter Visit Diagnoses Diagnosis Retro-orbital pain of left eye- Primary Temporal pain Headache documented in this encounter Additional Health Concerns Assessment Noted Time PHQ-9 Depression Total Score: 5 03/09/20 21 8:22 AM CDT documented as of this encounter Care Teams Professor Of Biology Relationship Specialty Start Date End Date System, Provider Not In PCP - General Clinic 03/28/23 Naa Talavera MD [address] [place] [id number] Urology 02/23/20 Myke Dolan MD [address] [place] [address] Assigned Surgical Provider 04/06/23 documented as of this encounter
--- OUTSIDE RECORDS SUMMARY | 2025-01-16 12:11 | XMS_ITS | Encounter Summary ---
Author Organization [facility] Address [address] [place] [address] Care Team Providers Care Gang Drill Press Operator Name Role Phone Germaine Pena MD Primary Care Provider Max Andrews MD Primary Care Provider [phone] Toney Escobar MD Primary Care Provider [phone] Tereza Centeno MD Primary Care Provider Unav [facility] Primary Care Provider + Naa Talavera MD Unavailable [phone] Naa Talavera MD Unavailable [phone] Tonya Acuña PA-C Unavailable [phone] Minerva Rico PA-C Unavailable [phone] Naa Talavera MD Unavailable [phone] Lucian Villegas MD Unavailable [phone] Rhianna Bravo MD Primary Care Provider [phone] System, Provider Not In Primary Care Provider Un available Myke Dolan MD Unavailable [phone] Encounter Details Date Type Department Care Team (Late Contact Info) Description 05/30/2009 MyC Medical Advice [address] [address] Germaine Pena MD [address] [place] [id number] Social History Tobacco Use Types Packs/Day Years Used Date Smoking Tobacco: Never Alcohol Use Standard Drinks/Week Comments Yes 0 (1 standard drink = 0.6 oz pur e alcohol) occasionally Comments No Sex and Gender Information Value Date Recorded Sex Assigned at Female 09/09/2021 6:11 AM CDT Legal Sex Female 3:25 AM IMPREGNATOR AND DRIER Gender Identity Female 09/09/2021 6:11 AM CDT Sexual Orientation Straight 09/09/2021 6: 11 AM CDT Occupation Industry Job Start Date Job End Date home for now Not on file Not on file Not on file documented as of this encounter Plan of Treatment Upcoming Encounters Date Type Department Care Team (Late st Contact Info) Description 01/21/2025 12:00 PM CDT Office Visit [address] [address] Myke Dolan MD [address] [place] [address] documented as of this encounter Visit Diagnoses Not on filedocumented in this encounter Care Teams Gang Drill Press Operator Relationship Specialty Start Date End Date Germaine Pena MD PCP - General 11/18/03 10/22/12 Max Andrews MD [address] [place] [address] PCP - General Family Practice 10/23/12 02/25/13 [place] [address] [place] [address] PCP - General Family Practice 02/26/13 02/04/14 [place] [address] [place] [address] PCP - General Family Practice 02/05/14 09/25/17 [facility] PCP - General Family Practice 09/26/17 11/21/21 [place] [address] [place] [address] PCP - General Family Medicine 11/22/21 03/27/23 System, Provider Not In PCP - General Clinic 03/28/23 Naa Talavera MD [address] [place] [phone] Urology 02/23/20 Naa Talavera MD [address] [place] [id number] Assigned Surgical Provider 09/02/20 01/24/21 Tonya Acuña PA-C [address] [place], [place] [address] Assigned Surgical Provider 01/25/21 03/11/21 Minerva Rico PA-C [address] [id number] Assigned OBGYN Provider 01/25/21 5 1 Naa Talavera MD [address] [place] [address] [id number] Assigned Surgical Provider 03/12/21 09/16/21 Lucian Villegas MD [address] [address] Assigned Surgical Provider 09/17/21 03/29/23 Myke Dolan MD [address] [place] [address] Assigned Surgical Provider 04/06/23 documented as of this encounter
== END 2025-01-16 13:48 | disposition home or self-care (01) ==
PROVIDERS: Emergency Provider Family Medicine; PCP Family Medicine
DX: J32.9 Chronic sinusitis, unspecified (principal); R51.9 Headache, unspecified; K86.2 Cyst of pancreas
CPT/HCPCS: 70450; 70486; 99283; 99284